=== PATIENT | male | born 1950 | race Two or more races ===

== ENCOUNTER 2020-12-16 09:40 | Outpatient (REF) | payer MEDICARE, SELFPAY ==
--- NOTE | 2020-12-16 16:54 | MHC.AU.ANR ---
Adult Audiological Evaluation Date of Visit: 12/16/20 Reason for Appointment: Audiological evaluation due to failed hearing screening. Mr. Quiñonez reports that he had a hearing screening on a occupational health physical exam and was advised that he had problems with his right ear. Mr. Quiñonez denies any concerns for his hearing. He feels he hears well and hasn't experienced any hearing difficulties. 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 History: History: Yes Branch: [employer] Years in : Less than 4 years Medical History: Medical History: Diabetes, High Blood Pressure, Mumps, Thyroid Disease Medication List: Metformin, Labetalol, Lisinopril, Glipizide, Vitamin B, Eliquis Otoscopy: Right Ear: Significant cerumen build-up removed with lighted curette Left Ear: Significant cerumen build-up removed with lighted curette and suction Tympanometry: Tympanometry performed due to: To assess integrity of the middle ear system Right Ear: Normal Middle Ear System (Type A) Left Ear: Hypercompliant Middle Ear System (Type Ad) Hearing Evaluation: Transducer(s) Used: Insert Earphones, Bone Conduction Method: Conventional Audiometry Stimuli Used: Pure Tones Right Ear: Description of Hearing: Normal hearing at 250 Hz, sloping to a mild to severe sensorineural hearing loss from 500-8000 Hz. Hearing in the right ear is 10-25 dBHL worse than the left from 500-8000 Hz. Left Ear: Description of Hearing: Normal hearing from 250-1000 Hz, sloping to a mild to severe sensorineural hearing loss from 8376-1764 Hz. Speech Recognition Threshold (SRT): Method Used: Monitored Live Voice Stimuli Used: Spondee Words Right Ear: 45 dBHL Left Ear: 30 dBHL Word Discrimination: Method: Recorded Lists Word Lists Used: NU-6 Right Ear: 60% at 85 dBHL Left Ear: 84% at 70 dBHL Recommendations: Audiological re-evaluation in one year. Trial with amplification is recommended. Medical clearance from a physician is required before fitting. Referral to Ear, Nose, and Throat is recommended due to asymmetrical sensorineural hearing loss. 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 Quiñonez was welcomed to return for a hearing aid consultation. Recommended that he check with his health insurance company to see if he has any hearing aid benefits. Also gave Mr. 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 Diagnosis: Primary Diagnosis: H90.3 Bilateral Sensorineural Hearing Loss Secondary Diagnosis: H61.23 Impacted Cerumen, Bilateral Services Performed: Services Performed: Comprehensive Audiological Evaluation (CPT 57643) Tympanometry (CPT 38775) Signature: Provider: Amina Soriano, CCC-A
== END 2020-12-16 09:41 | disposition home or self-care (01) ==
LOC: HO.SH 09:40
PROVIDERS: Visit Provider Internal Medicine
DX: H90.3 Sensorineural hearing loss, bilateral (principal); H61.23 Impacted cerumen, bilateral
CPT/HCPCS: 92557; 92567

== ENCOUNTER 2021-05-12 09:28 | Outpatient (REF) | payer OTHER, SELFPAY ==
--- NOTE | ~2021-05-12 | MR_ITS ---
MR BRAIN WITHOUT AND WITH CONTRAST CLINICAL INFORMATION: Bilateral sensorineural hearing loss. COMPARISON: None available. TECHNIQUE: Multiplanar, multisequence MRI of the brain was obtained before and after the intravenous administration of 9 mL Gadavist. FINDINGS: The inner ear structures including the cochlea, vestibules, and semicircular canals exhibit preserved CSF signal intensity with no pathologic enhancement. The vestibular aqueducts are not enlarged. Cranial nerves VII and VIII complexes are normal in morphology. No enhancing CP angle/retrocochlear lesion. There is no pathologic intracranial enhancement. There is global cerebral volume loss, there is moderate chronic microangiopathy, and there are chronic lacunar infarcts within the yumiko. No acute infarct on diffusion-weighted imaging. No intracranial hemorrhage on the gradient series. No hydrocephalus, extra-axial surface collection, or herniation. The midline intracranial structures are normal. Cerebellar tonsils are normally positioned. Craniocervical junction is normal. Osseous marrow signal intensity remains homogeneous. No significant soft tissue abnormality is appreciated. MR/MR head/brain wo/w con IMPRESSION: - No retrocochlear pathology. - There is global cerebral volume loss, there is moderate chronic microangiopathy, and there are chronic lacunar infarcts within the yumiko.
[2021-05-12 10:14] LABS: Blood Urea Nitrogen 15 mg/dL (9-16); Estimated Glomerular Filt Rate > 60
== END 2021-05-12 09:29 | disposition home or self-care (01) ==
LOC: HO.MRI 09:28
PROVIDERS: PCP Physician Assistant; Visit Provider Otolaryngology
DX: Z01.812 Encounter for preprocedural laboratory examination (principal); H90.3 Sensorineural hearing loss, bilateral
CPT/HCPCS: 36415; 70553; 82565; 84520; A9585

== ENCOUNTER 2021-06-15 09:34 | Outpatient (REF) | payer OTHER, SELFPAY ==
[2021-06-15 09:51] LABS: MANUAL DIFF FLAG NO
[2021-06-15 10:38] LABS: Basophils Percent Auto 0.2 % (0-2); Eosinophils Absolute Auto 0.1 X10*3/uL (0.0-0.4); Eosinophils Percent Auto 1.7 % (0-4); Hematocrit 37.2 % (42.0-52.0); Imm Gran Abs Auto 0.01 X10*3/uL (0.00-0.03); Imm Gran Pct Auto 0.2 % (0.0-0.4); Lymphocytes Absolute Auto 1.7 X10*3/uL (1.2-4.9); Lymphocytes Percent Auto 36.2 % (20-40); Mean Corpuscular HGB Conc 32.3 g/dl (31.0-36.0); Mean Corpuscular Hemoglobin 29.8 pg (27.0-33.0); Mean Corpuscular Volume 92.3 fL (80.0-98.0); Mean Platelet Volume 12.8 fL (9.4-12.4); Monocytes Absolute Auto 0.5 X10*3/uL (0.1-1.2); Monocytes Percent Auto 9.9 % (2-11); Neutrophils Absolute Auto 2.4 x10*3/uL (2.0-8.3); Neutrophils Percent Auto 51.8 % (45-73); Platelet Count 130 X10*3/uL (160-400); Red Blood Count 4.03 X10*6/uL (4.60-5.80); Red Cell Distribution Width 13.3 % (11.0-16.0); White Blood Count 4.7 X10*3/uL (4.8-10.8)
[2021-06-15 10:49] LABS: Estimated Average Glucose 174 mg/dL; Hemoglobin A1c % 7.7 %
[2021-06-15 11:09] LABS: Alanine Aminotransferase 26 U/L (0-40); Albumin Level 4.4 g/dL (3.5-5.0); Alkaline Phosphatase 67 U/L (39-117); Anion Gap 11 (12-20); Aspartate Amino Transferase 16 U/L (5-37); Bilirubin Total 0.6 mg/dL (0.0-1.0); Blood Urea Nitrogen 15 mg/dL (9-16); Calcium 9.8 mg/dL (8.4-10.2); Carbon Dioxide 30 mmol/L (22-29); Chloride 103 mmol/L (96-108); Cholesterol 150 mg/dL; Estimated Glomerular Filt Rate > 60; Glucose Fasting 199 mg/dL (60-99); HDL Cholesterol 41 mg/dL; LDL Cholesterol Calculated 99 mg/dl; Potassium 4.9 mmol/L (3.3-5.1); Sodium 139 mmol/L (135-145); Total Protein 7.1 g/dL (6.5-8.0); Triglycerides 53 mg/dL
[2021-06-15 11:22] LABS: TSH reflex Free T4 0.86 uIU/mL (0.32-4.0)
[2021-06-15 12:09] LABS: Folate 19.5 ng/mL (> or = 4.0); Vitamin B12 543 pg/mL (200-900)
[2021-06-20 12:52] LABS: Vitamin D 25-OH, D2 <4 ng/mL; Vitamin D 25-OH, D3 20 ng/mL; Vitamin D 25-OH, Total 20 ng/mL (30-100)
== END 2021-06-15 09:35 | disposition home or self-care (01) ==
LOC: HO.LAB 09:34
PROVIDERS: PCP Nurse Practitioner Acute Care; Visit Provider Nurse Practitioner Acute Care
DX: E78.5 Hyperlipidemia, unspecified (principal)
CPT/HCPCS: 36415; 80053; 80061; 82306; 82607; 82746; 83036; 84443; 85025

== ENCOUNTER 2021-08-28 09:29 | Emergency (ER) | payer OTHER, SELFPAY ==
[2021-08-28 09:31] VITALS: BP 152/64; PULSE 77; RESP 18; TEMP 36.8; O2SAT 97; BMI 30.9
--- NOTE | 2021-08-28 09:50 | ED_ITS ---
HPI - Eye Problem General Chief complaint: Eye Problems Stated complaint: pink eye Time Seen by Provider: 08/28/21 09:50 History of Present Illness HPI Narrative: Patient complains of 3 days of bilateral itchy scratchy red eye is with what was at 1st to clear discharge and now whitish yellow discharge symmetric in both eyes, no vision loss no photophobia no eye pain no injury to the eye no foreign body Related Data Home Medications Medication Instructions Recorded Confirmed apixaban 5 mg tablet (Eliquis) 5 mg PO BID 05/13/21 05/13/21 cyanocobalamin (vitamin B-12) 2,000 mcg PO DAILY 05/13/21 05/13/21 2,000 mcg tablet,extended release glipizide 10 mg tablet 20 mg PO BID 05/13/21 05/13/21 labetalol 200 mg tablet 200 mg PO BID 05/13/21 05/13/21 levothyroxine 200 mcg tablet 200 mcg PO DAILY 05/13/21 05/13/21 lisinopril 20 mg tablet 20 mg PO DAILY 05/13/21 05/13/21 simvastatin 20 mg tablet 20 mg PO DAILY 05/13/21 05/13/21 Previous Rx's Medication Instructions Recorded calcitriol 0.25 mcg capsule 0.25 mcg PO DAILY #30 caps 06/22/21 diclofenac sodium 1 % topical gel 4 g topical QID #100 grams 07/17/21 (Voltaren Arthritis Pain) fluticasone propionate 50 1 spray intranasal BID #48 grams 07/27/21 mcg/actuation nasal spray,suspension cetirizine 10 mg capsule 10 mg PO DAILY PRN allergy 08/28/21 symptoms #14 caps olopatadine 0.2 % eye drops 1 drp ophthalmic (eye) DAILY PRN 08/28/21 (Pataday Once Daily Relief) itching #2.5 mL sulfacetamide sodium 10 % eye 1 drp ophthalmic (eye) Q4H 5 days 08/28/21 drops (Bleph-10) #15 mL Allergies Allergy/AdvReac Type Severity Reaction Status Date / Time No Known Drug Allergies Allergy Mild Unknown Verified 06/12/21 10:44 Review of Systems Review of Systems: Positive for eye redness and discharge Negatives are no fever no chills no dizziness no headache no vision loss no eye pain no photophobia no runny nose no skin rash no difficulty breathing or swallowing Yes all other systems are reviewed and are negative [facility] Past Medical History Source: nursing notes reviewed Medical History Allergic sinusitis Essential hypertension HX: anticoagulation Hyperlipidemia Hypothyroidism Paroxysmal A-fib Type II diabetes mellitus Surgical History H/O thumb surgery Family History Family History Father No problems noted. Mother Diabetes Social History Social History Housing: Apartment Alcohol intake: former Patient Tobacco Use Status: Never used Tobacco e-Cigarette/Vaping Use: Never Used Second Hand Smoke Exposure: Yes Advance Directives: Yes Advance Directives Information Provided: Yes Advance Directives on File: No service: Yes Current occupational status: employed Cognitive needs: No Hearing needs: No Vision needs: Yes (Glasses) Physical Exam Vital Signs: Vital Signs: Last Vital Signs Temp 98.3 F 08/28/21 09:31 Pulse 77 08/28/21 09:31 Resp 18 08/28/21 09:31 BP 152/64 H 08/28/21 09:31 Pulse Ox 97 08/28/21 09:31 O2 Del Method 08/28/21 09:31 BMI result Body Mass Index 30.9 General appearance comfortable relax no acute distress The eyes bilateral conjunctivae all erythema, there is a whitish discharge scan both eyes pupils equal round reactive to light extraocular motions are intact no photophobia, visual acuity 2020 bilateral with glasses The neck is supple Respiratory no distress Extremities full range of motion x4 Skin no rash Course Course Course Narrative: Patient with conjunctivitis possibly allergic possibly bacterial is treated with sulfacetamide and allergy medication Discharge Plan Discharge Clinical Impression: Conjunctivitis Patient Disposition: Home, Self-Care Additional Instructions: The redness and discharge from her eye could be from an infection or could be from allergies so we are treating for both possibilities Use medication as prescribed Return any time for eye pain or vision change or loss If not better in 3 days follow with eye doctor or family doctor Prescriptions: New sulfacetamide sodium [Bleph-10] 10 % drops 1 drp ophthalmic (eye) Q4H 5 Days Qty: 15 0RF cetirizine 10 mg capsule 10 mg PO DAILY PRN (Reason: allergy symptoms) Qty: 14 0RF olopatadine [Pataday Once Daily Relief] 0.2 % drops 1 drp ophthalmic (eye) DAILY PRN (Reason: itching) Qty: 2.5 0RF No Action calcitriol 0.25 mcg capsule 0.25 mcg PO DAILY Qty: 30 3RF diclofenac sodium [Voltaren Arthritis Pain] 1 % gel 4 g topical QID Qty: 100 0RF Rx Instructions: apply to single knee, ankle, foot; for foot includes sole/toes/top of foot fluticasone propionate 50 mcg/actuation spray,suspension 1 spray intranasal BID Qty: 48 0RF glipizide 10 mg tablet 20 mg PO BID lisinopril 20 mg tablet 20 mg PO DAILY labetalol 200 mg tablet 200 mg PO BID cyanocobalamin (vitamin B-12) 2,000 mcg tablet extended release 2,000 mcg PO DAILY Eliquis 5 mg tablet 5 mg PO BID simvastatin 20 mg tablet 20 mg PO DAILY levothyroxine 200 mcg tablet 200 mcg PO DAILY Interventions: ED Discharge Assessment Last Done: 08/28/21 10:03 Discharge Date/Time: 08/28/21 10:03
== END 2021-08-28 10:03 | disposition home or self-care (01) ==
PROVIDERS: Emergency Provider Student in an Organized Health Care Education/Training Program
DX: H10.9 Unspecified conjunctivitis (principal); I10 Essential (primary) hypertension; E11.9 Type 2 diabetes mellitus without complications; I48.0 Paroxysmal atrial fibrillation
CPT/HCPCS: 99283

== ENCOUNTER 2021-09-15 10:31 | Emergency (ER) | payer OTHER, SELFPAY ==
--- NOTE | ~2021-09-15 | CT_ITS ---
EXAMINATION: CT HEAD WITHOUT CONTRAST CLINICAL INFORMATION: Severe headaches. Patient on Eliquis COMPARISON: MRI brain 05/12/2021 TECHNIQUE: Contiguous axial imaging was performed from the skull base to vertex without intravenous administration of contrast. This CT examination was performed using dose optimization techniques as appropriate, variously including the following: *Automated exposure control *Adjustment of mA and/or kV according to patient size (this includes techniques or standardized protocols for targeted exams where dose is matched to indication/reason for exam; i.e. extremities or head) *Use of iterative reconstruction technique DLP: 661 mGy-cm FINDINGS: There is prominence to the sulci and ventricles. There is deep white matter gliosis. Findings are compatible with involutional change. There is no intra or extra-axial fluid collection, hemorrhage, mass, or mass effect. Subtle low density areas in the yumiko were seen on the prior MRI study, likely chronic appearance. Calvarium intact. CT/CT head/brain wo con IMPRESSION: No acute intracranial pathology.
[2021-09-15 11:09] VITALS: BP 146/67; PULSE 81; RESP 16; TEMP 36.3; O2SAT 98; BMI 29.8
[2021-09-15 13:04] LABS: MANUAL DIFF FLAG NO
[2021-09-15 13:08] LABS: Basophils Percent Auto 0.1 % (0-2); Eosinophils Absolute Auto 0.1 X10*3/uL (0.0-0.4); Eosinophils Percent Auto 0.9 % (0-4); Hematocrit 39.4 % (42.0-52.0); Hemoglobin 12.9 g/dl (14.0-18.0); Imm Gran Abs Auto 0.01 X10*3/uL (0.00-0.03); Imm Gran Pct Auto 0.1 % (0.0-0.4); Lymphocytes Absolute Auto 2.2 X10*3/uL (1.2-4.9); Lymphocytes Percent Auto 31.9 % (20-40); Mean Corpuscular HGB Conc 32.7 g/dl (31.0-36.0); Mean Corpuscular Volume 91.6 fL (80.0-98.0); Monocytes Absolute Auto 0.5 X10*3/uL (0.1-1.2); Monocytes Percent Auto 6.5 % (2-11); Neutrophils Absolute Auto 4.2 x10*3/uL (2.0-8.3); Neutrophils Percent Auto 60.5 % (45-73); Platelet Count 184 X10*3/uL (160-400); White Blood Count 6.9 X10*3/uL (4.8-10.8)
[2021-09-15 13:13] LABS: INTERNATIONAL NORM RATIO 1.3 (0.9-1.1); Prothrombin Time 15.4 SEC (10.0-13.1)
[2021-09-15 13:21] LABS: COVID-19 Test Negative (Negative)
[2021-09-15 13:41] LABS: Anion Gap 13 (12-20); Blood Urea Nitrogen 17 mg/dL (9-16); Calcium 9.8 mg/dL (8.4-10.2); Carbon Dioxide 28 mmol/L (22-29); Chloride 102 mmol/L (96-108); Creatinine Clr Calc Pharmacy 73.7; Estimated Glomerular Filt Rate > 60; Glucose Random 256 mg/dL (60-115); Potassium 5.1 mmol/L (3.3-5.1); Sodium 138 mmol/L (135-145)
[2021-09-15 13:57] LABS: Erythrocyte Sedimentation Rate 12 MM/HR (0-15)
--- NOTE | 2021-09-15 15:44 | ED_ITS ---
HPI - Headache General Chief Complaint: Headache Stated Complaint: severe headache, not sleeping or eating Time Seen by Provider: 09/15/21 11:12 Source: patient Mode of arrival: ambulatory Limitations: no limitations History of Present Illness HPI Narrative: 70-year-old male here with reports of intermittent stabbing headache on the right side for the last 2 weeks. Patient tells me that 2 weeks ago he was diagnosed with shingles. He completed a course of Valtrex. Since then he said intermittent headaches that are unrelieved with Tylenol home. Patient tells me he saw his primary care doctor on September 11 and was prescribed gabapentin 200 mg twice daily. Patient tells me he is having continued headaches. He denies any hearing changes or ear pain. No weakness, speech changes on the side of headache. Pain is mainly on the right side. He tells me that the shingles lesions that are scabbed over are still quite tender. No fevers, chills, neck pain or neck stiffness. No vision changes. Has followed up with his principal security architect with normal eye exam (09/09/21) Related Data Home Medications Medication Instructions Recorded Confirmed apixaban 5 mg tablet (Eliquis) 5 mg PO BID 05/13/21 09/11/21 cyanocobalamin (vitamin B-12) 2,000 mcg PO DAILY 05/13/21 09/11/21 2,000 mcg tablet,extended release glipizide 10 mg tablet 20 mg PO BID 05/13/21 09/11/21 labetalol 200 mg tablet 200 mg PO BID 05/13/21 09/11/21 levothyroxine 200 mcg tablet 200 mcg PO DAILY 05/13/21 09/11/21 lisinopril 20 mg tablet 20 mg PO DAILY 05/13/21 09/11/21 simvastatin 20 mg tablet 20 mg PO DAILY 05/13/21 09/11/21 Previous Rx's Medication Instructions Recorded calcitriol 0.25 mcg capsule 0.25 mcg PO DAILY #30 caps 06/22/21 diclofenac sodium 1 % topical gel 4 g topical QID #100 grams 07/17/21 (Voltaren Arthritis Pain) fluticasone propionate 50 1 spray intranasal BID #48 grams 07/27/21 mcg/actuation nasal spray,suspension cetirizine 10 mg capsule 10 mg PO DAILY PRN allergy 08/28/21 symptoms #14 caps olopatadine 0.2 % eye drops 1 drp ophthalmic (eye) DAILY PRN 08/28/21 (Pataday Once Daily Relief) itching #2.5 mL cephalexin 500 mg tablet 500 mg PO Q12H 7 days #14 tabs 09/04/21 valacyclovir 1 gram tablet 1,000 mg PO Q8H 7 days #21 tabs 09/04/21 gabapentin 100 mg capsule 200 mg PO BID 14 days #56 caps 09/11/21 gabapentin 300 mg capsule 300 mg PO TID #84 caps 09/15/21 Allergies Allergy/AdvReac Type Severity Reaction Status Date / Time No Known Drug Allergies Allergy Mild Unknown Verified 09/15/21 11:12 Review of Systems Review of Systems: Yes all other systems are reviewed and are negative Constitutional: Constitutional: Reports no additional constitutional complaints, Denies body ache(s), Denies chills, Denies fever(s), Reports headache(s) and Denies weakness Eyes: Eyes: Reports no additional eye complaints and Denies change in vision ENT: Reports system reviewed and no additional complaints, except as documented, Denies dizziness, Reports headache(s), Denies nasal congestion, Denies nasal discharge and Denies neck pain Cardiovascular: Cardiovascular: Reports no additional cardiovascular complaints, Denies chest pain, Denies leg edema and Denies dyspnea Respiratory: Respiratory: Reports no additional respiratory complaints, Denies cough and Denies dyspnea Gastrointestinal: Gastrointestinal: Reports no additional gastrointestinal complaints, Denies abdominal pain, Denies diarrhea, Denies nausea and Denies vomiting Genitourinary: Genitourinary: Denies urinary incontinence Musculoskeletal: Musculoskeletal: Reports no additional musculoskeletal complaints, Denies back pain, Denies arthralgias, Denies joint swelling, Denies neck pain, Denies numbness and Denies tingling Integumentary/Breasts: Skin/Breast: Reports system reviewed and no additional complaints, except as docu and Denies rash Neurologic: Reports system reviewed and no additional complaints, except as documented, Denies Abnormal speech present, Denies dizziness, Reports headache(s), Denies numbness, Denies tingling and Denies weakness PMFSH Past Medical History Attestation statement: The following information was validated with the patient. Source: old records reviewed and nursing notes reviewed Medical History Allergic sinusitis Essential hypertension HX: anticoagulation Hyperlipidemia Hypothyroidism Paroxysmal A-fib Type II diabetes mellitus Surgical History H/O thumb surgery Family History Family History Father No problems noted. Mother Diabetes Social History Social History Housing: Apartment Alcohol intake: former Patient Tobacco Use Status: Never used Tobacco e-Cigarette/Vaping Use: Never Used Second Hand Smoke Exposure: Yes Advance Directives: Yes Advance Directives Information Provided: No Advance Directives on File: No service: Yes Current occupational status: employed Cognitive needs: No Hearing needs: No Vision needs: Yes (Glasses) Physical Exam Vital Signs: Vital Signs: Last Vital Signs Temp 97.3 F 09/15/21 11:09 Pulse 81 09/15/21 11:09 Resp 16 09/15/21 11:09 BP 146/67 H 09/15/21 11:09 Pulse Ox 98 09/15/21 11:09 O2 Del Method 09/15/21 11:09 BMI result Body Mass Index 29.8 Const: General: cooperative, healthy appearing, comfortable and no acute distress Orientation/consciousness: patient oriented x3 Limitations: no limitations HEENT: Head: Yes normal to inspection and No Temporal artery tenderness present Head images: 1. Crusted lesions Ears: hearing grossly normal bilaterally General nose exam: Normal external nose present Face and sinus: Yes normal facial exam Mouth: Normal oral and palatal mucosa present Throat: Yes posterior oropharynx normal Eyes: General: appearance normal, both eyes and all related structures Pupils: Equal, round and reactive pupils present Neck: Neck: Yes normal visual inspection Chest: Chest palpation & inspection: normal inspection of the chest Resp: Effort & Inspection: normal respiratory effort Auscultation: clear to auscultation bilaterally Cardio: Rate: regular rate Rhythm: regular rhythm Peripheral pulses: Peripheral pulses 2+ throughout GI: Inspection: Yes normal to inspection Palpation (GI): Soft to palpation and nontender Auscultation: normal bowel sounds Back/Spine/Pelvis: Thoracic/Lumbar Spine: thoracic and lumbar spine normal to inspection Skin: General skin exam: no rashes or lesions noted Neuro: General: patient oriented x3, moves all extremities, no focal motor deficits and normal sensation to monofilament Cranial nerves: Yes CN's II-XII intact bilaterally, Yes Equal, round and reactive pupils present, Yes Bilaterally intact EOM present, Yes Nystagmus not present, Yes Normal facial strength present and Yes Midline tongue present Cognition (Neuro): normal cognition Speech: No Abnormal speech present Gait exam (Neuro): Normal gait present Motor exam (neuro): 5/5 motor strength present throughout Sensory Exam: Normal double simultaneous stimulation for sensation Extrem: General: Yes normal to inspection Course Course Course Narrative: Labs are unremarkable. CT head shows no acute finding. COVID screen is negative. Likely herpetic neuralgia. Patient on low dose of gabapentin. We discussed increasing the dosage and frequency of the medication versus changing him to a different medication. Patient would like to consider increasing the gabapentin and frequency and dosage. Will increase to 300 mg 3 times daily. Recommend follow-up with primary care doctor this week. Reviewed worrisome signs and symptoms of when to return to the emergency department. Comfortable discharge home. MDM - Headache MDM Narrative Medical decision making narrative: 70-year-old male who had shingles 2 weeks ago here with intermittent sharp stabb ing pain on the right side of the head at the former site of the lesions with no associated vision changes, fevers, weakness, sensation change, neck pain or neck stiffness. Patient started on gabapentin by primary care doctor on September 11 at 200 mg twice daily. Reporting continued pain. Normal neurological exam with no overt deficit. Patient overall well appearing. Patient had labs, COVID screen, CT head ordered from triage. Will review -low concern for hunter cadet with normal neurological exam, no hearing change or ear pain. -low concern for temporal arteritis with no temporal artery tenderness Medical Records Attestation: I reviewed the patient's medical records. Lab Data Attestation: I reviewed the patient's lab results. Result diagrams: 09/15/21 12:55 09/15/21 12:55 Labs: Lab Results 09/15/21 09/15/21 09/15/21 Range/Units 12:55 12:55 12:55 WBC 6.9 (4.8-10.8) X10*3/uL RBC 4.30 L (4.60-5.80) X10*6/uL Hgb 12.9 L (14.0-18.0) g/dl Hct 39.4 L (42.0-52.0) % MCV 91.6 (80.0-98.0) fL MCH 30.0 (27.0-33.0) pg MCHC 32.7 (31.0-36.0) g/dl RDW 13.0 (11.0-16.0) % Plt Count 184 D (160-400) X10*3/uL MPV 11.0 (9.4-12.4) fL Immature Gran % (Auto) 0.1 (0.0-0.4) % Neut % (Auto) 60.5 (45-73) % Lymph % (Auto) 31.9 (20-40) % [place] % (Auto) 6.5 (2-11) % Eos % (Auto) 0.9 (0-4) % Baso % (Auto) 0.1 (0-2) % Lymph # (Auto) 2.2 (1.2-4.9) X10*3/uL [place] # (Auto) 0.5 (0.1-1.2) X10*3/uL Eos # (Auto) 0.1 (0.0-0.4) X10*3/uL Baso # (Auto) 0.0 (0.0-0.2) X10*3/uL Abs Immat Gran (auto) 0.01 (0.00-0.03) X10*3/uL Absolute Neuts (auto) 4.2 (2.0-8.3) x10*3/uL Absolute Nucleated RBC 0.000 (0.0-0.012) X10*3/uL Nucleated RBC % (auto) 0.0 (0.0-0.2) /100WBC ESR 12 (0-15) MM/HR PT 15.4 H (10.0-13.1) SEC INR 1.3 H (0.9-1.1) Sodium (135-145) mmol/L Potassium (3.3-5.1) mmol/L Chloride (96-108) mmol/L Carbon Dioxide (22-29) mmol/L Anion Gap (12-20) BUN (9-16) mg/dL Creatinine (0.5-1.4) mg/dL Estim Creat Clear Calc Estimated GFR Random Glucose (60-115) mg/dL Calcium (8.4-10.2) mg/dL COVID-19 (ADITI) (Negative) COVID-19 Clin Com 09/15/21 09/15/21 Range/Units 12:55 12:55 WBC (4.8-10.8) X10*3/uL RBC (4.60-5.80) X10*6/uL Hgb (14.0-18.0) g/dl Hct (42.0-52.0) % MCV (80.0-98.0) fL MCH (27.0-33.0) pg MCHC (31.0-36.0) g/dl RDW (11.0-16.0) % Plt Count (160-400) X10*3/uL MPV (9.4-12.4) fL Immature Gran % (Auto) (0.0-0.4) % Neut % (Auto) (45-73) % Lymph % (Auto) (20-40) % [place] % (Auto) (2-11) % Eos % (Auto) (0-4) % Baso % (Auto) (0-2) % Lymph # (Auto) (1.2-4.9) X10*3/uL [place] # (Auto) (0.1-1.2) X10*3/uL Eos # (Auto) (0.0-0.4) X10*3/uL Baso # (Auto) (0.0-0.2) X10*3/uL Abs Immat Gran (auto) (0.00-0.03) X10*3/uL Absolute Neuts (auto) (2.0-8.3) x10*3/uL Absolute Nucleated RBC (0.0-0.012) X10*3/uL Nucleated RBC % (auto) (0.0-0.2) /100WBC ESR (0-15) MM/HR PT (10.0-13.1) SEC INR (0.9-1.1) Sodium 138 (135-145) mmol/L Potassium 5.1 (3.3-5.1) mmol/L Chloride 102 (96-108) mmol/L Carbon Dioxide 28 (22-29) mmol/L Anion Gap 13 (12-20) BUN 17 H (9-16) mg/dL Creatinine 0.92 (0.5-1.4) mg/dL Estim Creat Clear Calc 73.7 Estimated GFR > 60 Random Glucose 256 H (60-115) mg/dL Calcium 9.8 (8.4-10.2) mg/dL COVID-19 (ADITI) Negative (Negative) COVID-19 Clin Com See Note Imaging Data CT scan - head: Attestation: I personally reviewed and interpreted this imaging study as follows: Radiologist's impression: EXAMINATION: CT HEAD WITHOUT CONTRAST CLINICAL INFORMATION: Severe headaches. Patient on Eliquis? COMPARISON: MRI brain 05/12/2021 TECHNIQUE: Contiguous axial imaging was performed from the skull base to vertex without intravenous administration of contrast. This CT examination was performed using dose optimization techniques as appropriate, variously including the following: *Automated exposure control *Adjustment of mA and/or kV according to patient size (this includes techniques or standardized protocols for targeted exams where dose is matched to indication/reason for exam; i.e. extremities or head) *Use of iterative reconstruction technique DLP: 661 mGy-cm FINDINGS: There is prominence to the sulci and ventricles. There is deep white matter gliosis. Findings are compatible with involutional change. There is no intra or extra-axial fluid collection, hemorrhage, mass, or mass effect. Subtle low density areas in the yumiko were seen on the prior MRI study, likely chronic appearance. Calvarium intact. CT/CT head/brain wo con IMPRESSION: No acute intracranial pathology. ? Discharge Plan Discharge Clinical Impression: Post herpetic neuralgia Patient Disposition: Home, Self-Care Instructions: Erick (ED) Additional Instructions: Take the gabapentin with breakfast, lunch and dinner Discussed with your primary care doctor how you are feeling in a couple of days Prescriptions: New gabapentin 300 mg capsule 300 mg PO TID Qty: 84 0RF No Action calcitriol 0.25 mcg capsule 0.25 mcg PO DAILY Qty: 30 3RF diclofenac sodium [Voltaren Arthritis Pain] 1 % gel 4 g topical QID Qty: 100 0RF Rx Instructions: apply to single knee, ankle, foot; for foot includes sole/toes/top of foot fluticasone propionate 50 mcg/actuation spray,suspension 1 spray intranasal BID Qty: 48 0RF cetirizine 10 mg capsule 10 mg PO DAILY PRN (Reason: allergy symptoms) Qty: 14 0RF olopatadine [Pataday Once Daily Relief] 0.2 % drops 1 drp ophthalmic (eye) DAILY PRN (Reason: itching) Qty: 2.5 0RF glipizide 10 mg tablet 20 mg PO BID lisinopril 20 mg tablet 20 mg PO DAILY labetalol 200 mg tablet 200 mg PO BID cyanocobalamin (vitamin B-12) 2,000 mcg tablet extended release 2,000 mcg PO DAILY Eliquis 5 mg tablet 5 mg PO BID simvastatin 20 mg tablet 20 mg PO DAILY levothyroxine 200 mcg tablet 200 mcg PO DAILY valacyclovir 1 gram tablet 1,000 mg PO Q8H 7 Days Qty: 21 0RF cephalexin 500 mg tablet 500 mg PO Q12H 7 Days Qty: 14 0RF gabapentin 100 mg capsule 200 mg PO BID 14 Days Qty: 56 0RF Referrals: Tamera Prado FNP [Primary Care Provider] - 3 days Interventions: ED Discharge Assessment Last Done: 09/15/21 15:56 Discharge Date/Time: 09/15/21 15:57
== END 2021-09-15 15:57 | disposition home or self-care (01) ==
PROVIDERS: Emergency Medicine; Emergency Provider Emergency Medicine; PCP Nurse Practitioner Family
DX: M79.2 Neuralgia and neuritis, unspecified (principal); R51.9 Headache, unspecified; Z20.822 Contact with and (suspected) exposure to COVID-19; Z79.899 Other long term (current) drug therapy
CPT/HCPCS: 70450; 80048; 85025; 85610; 85652; 87635; 99283

== ENCOUNTER 2022-07-22 09:52 | Outpatient (REF) | payer MEDICARE, SELFPAY ==
[2022-07-22 10:34] LABS: Hematocrit 40.1 % (42.0-52.0); Hemoglobin 12.7 g/dl (14.0-18.0); Mean Corpuscular HGB Conc 31.7 g/dl (31.0-36.0); Mean Corpuscular Hemoglobin 29.8 pg (27.0-33.0); Mean Corpuscular Volume 94.1 fL (80.0-98.0); Mean Platelet Volume 12.1 fL (9.4-12.4); Platelet Count 162 X10*3/uL (160-400); Red Blood Count 4.26 X10*6/uL (4.60-5.80); Red Cell Distribution Width 12.9 % (11.0-16.0); White Blood Count 5.6 X10*3/uL (4.8-10.8)
[2022-07-22 10:43] LABS: Estimated Average Glucose 157 mg/dL; Hemoglobin A1c % 7.1 %
[2022-07-22 11:25] LABS: Alanine Aminotransferase 20 U/L (0-40); Albumin Level 4.3 g/dL (3.5-5.0); Alkaline Phosphatase 68 U/L (39-117); Anion Gap 14 (12-20); Aspartate Amino Transferase 16 U/L (5-37); Bilirubin Total 0.5 mg/dL (0.0-1.0); Blood Urea Nitrogen 25 mg/dL (9-16); Calcium 9.7 mg/dL (8.4-10.2); Carbon Dioxide 27 mmol/L (22-29); Chloride 105 mmol/L (96-108); Cholesterol 140 mg/dL; Estimated Glomerular Filt Rate > 60; Glucose Random 211 mg/dL (60-115); HDL Cholesterol 39 mg/dL; LDL Cholesterol Calculated 80 mg/dl; Potassium 5.1 mmol/L (3.3-5.1); Sodium 141 mmol/L (135-145); Total Protein 6.7 g/dL (6.5-8.0); Triglycerides 107 mg/dL
[2022-07-22 11:28] LABS: Creatinine Urine 68.78 mg/dL; Microalbum/Creatinine Ratio Ur 8.7 ug/mg cr
[2022-07-22 12:00] LABS: Folate 16.1 ng/mL (> or = 4.0); TSH reflex Free T4 0.96 uIU/mL (0.32-4.0); Vitamin B12 653 pg/mL (200-900); Vitamin D 25-OH Total 41.3 ng/mL (>30)
== END 2022-07-22 09:53 | disposition home or self-care (01) ==
LOC: HO.LAB 09:52
PROVIDERS: Visit Provider Nurse Practitioner Family
DX: E03.9 Hypothyroidism, unspecified (principal); E55.9 Vitamin D deficiency, unspecified; E78.5 Hyperlipidemia, unspecified; E11.9 Type 2 diabetes mellitus without complications
CPT/HCPCS: 36415; 80053; 80061; 82043; 82306; 82607; 82746; 83036; 84443; 85027

== ENCOUNTER 2022-10-20 14:53 | Outpatient (AMB) | payer MEDICARE, SELFPAY ==
--- NOTE | 2022-10-20 15:00 | A.OFFPC_ITS ---
Vital Signs 10/20/22 15:03 Height 5 ft 6 in Weight 187 lb BMI 30.2 BP 150/68 H Blood Pressure Location Lt brachial Position Sitting Pulse 84 Pulse Source Pulse Oximeter Temp Source Skin Pulse Oximetry (%) 98 Oxygen Delivery Method Room Air Intake Visit Reasons: Trouble hearing-L ear Intake Note: pt states bilateral ear blockage since yesterday Spring Intern Required: No Allergies No Known Drug Allergies Allergy (Mild, Verified 10/20/22 15:19) Unknown Medication List - Last Reconciled 10/20/22 by MAGGI Bailey apixaban (Eliquis) 5 mg PO BID calcitriol 0.25 mcg PO DAILY cetirizine 10 mg PO DAILY PRN cyanocobalamin (vitamin B-12) ER 2,000 mcg PO DAILY diclofenac sodium 1% (Voltaren Arthritis Pain) 4 grams topical QID empagliflozin (Jardiance) 10 mg PO DAILY fluticasone propionate 50 mcg/actuation 1 spray intranasal DAILY glipizide 20 mg PO BID labetalol 200 mg PO BID levothyroxine 200 mcg PO DAILY lisinopril 20 mg PO DAILY olopatadine 0.2% (Pataday Once Daily Relief) 1 drp ophthalmic (eye) DAILY PRN simvastatin 20 mg PO DAILY Tobacco use date assessed: 10/20/22 Fall risk assessment: No Falls in past year Last assessed Fall Risk: 10/20/22 HPI Trouble hearing-L ear HPI Details Patient is a 71-year-old male who presents today for an office visit due to bilateral ear blocked sensation left greater than right for the past 1 day. Patient reports that 2 days ago he tried to flush his ears, mild vax came from his right ear. He denies ear pain, denies being submitted sick. No fever or chills. No headache. Reports wearing bilateral hearing aids when driving. [facility] Medical History Allergic sinusitis Encounter to establish care Essential hypertension Herpes zoster HX: anticoagulation Hyperlipidemia Hypothyroidism Paroxysmal A-fib Type II diabetes mellitus Surgical History H/O thumb surgery History of colonoscopy Family History Father No problems noted. Mother Diabetes Social History Housing: Apartment Alcohol intake: former Patient Tobacco Use Status: Never used Tobacco e-Cigarette/Vaping Use: Never Used Second Hand Smoke Exposure: Yes service: Yes Current occupational status: employed Cognitive needs: No Hearing needs: No Vision needs: Yes (Glasses) Questionnaire Thrive Questionnaire Date Thrive assessed: 04/02/22 AUDIT C Alcohol Use Questionnaire (AUDIT-C) 1. How often do you have a drink containing alcohol?: Never 2. How many drinks containing alcohol do you have on a typical day when you are drinking?: 1 or 2 (0) 3. How often do you have six or more drinks on one occasion?: Never Total Score: 0 Score Reviewed/Action Taken: No MICHELE-7 AMB Questionnaire MICHELE-7 Date MICHELE - 7 assessed: 04/02/22 Source: Developed by Drs. Trae Simeon, Saida Campoverde, Chiki Hummel and colleagues, with an educational yeyo from [employer]. Review of Systems Const Denies body aches, Denies chills, Denies fever(s) and Denies headache(s) Eyes Denies change in vision ENT Reports as per HPI, Denies dizziness, Denies ear discharge, Denies otalgia, Denies headache(s), Denies nasal discharge, Denies sinus pain and Denies sore throat Card Denies chest pain, Denies edema, Denies lightheadedness and Denies dyspnea Resp Denies cough, Denies dyspnea and Denies wheezing GI Denies abdominal pain Denies dysuria Musc Denies myalgias Skin/Breast Denies rash Neuro Denies dizziness and Denies headache(s) Aller/Immun Denies wheezing Physical exam (Primary Care) Vital Signs: Last Vital Signs Pulse 84 10/20/22 15:03 BP 150/68 H 10/20/22 15:03 Pulse Ox 98 10/20/22 15:03 Oxygen Delivery Method Room Air 10/20/22 15:03 BMI result Body Mass Index 30.2 Tobacco/Smoking Status: Tobacco use Status Tobacco use date assessed 10/20/22 10/20/22 15:06 Patient Tobacco Use Status Never used Tobacco 10/20/22 15:01 e-Cigarette/Vaping Use Never Used 08/09/23 15:01 Thrive Assessment: Date of Thrive Assessment Date Thrive assessed 04/02/22 10/20/22 15:01 Const Other: Right ear canal no cerumen, TM with moderate erythema, mild fluid behind right TM Left TM obstructed by cerumen, status post ear lavage left TM with moderate erythema, mild fluid behind left TM General: cooperative and no acute distress Orientation/consciousness: patient oriented x3 HENMT Head: Yes normocephalic and Yes atraumatic Face and sinus: Yes sinuses nontender Mouth: oropharynx normal and moist mucous membranes Throat: Yes posterior oropharynx normal Eyes General: appearance normal, both eyes and all related structures Neck Neck: Yes normal visual inspection and Yes full ROM Resp Effort & Inspection: normal respiratory effort and able to speak in complete sentences Auscultation: clear to auscultation bilaterally, no crackles, no rales, no rhonchi and no wheezes Cardio Rate: regular rate Rhythm: regular rhythm Heart sounds: S1 normal heart sound present and S2 normal heart sound present GI Auscultation: normal bowel sounds Skin General skin exam: no rashes or lesions noted Neuro General: patient oriented x3 Gait exam (Neuro): Normal gait present Extrem General: Yes full ROM Office Procedures Cerumen Removal From which ear canal was the cerumen removed: left Removal: irrigation Notes: patient tolerated procedure well, no complications and ear canal clear [id number] Irrigation/Lavage Assessment and Plan Assessment & Plan (1) Impacted cerumen, left ear: Code(s): H61.22 - Impacted cerumen, left ear Plan: Status post ear lavage left ear canal clear, patient tolerated well Patient reports that blocked sensation in his left ear is better (2) Otitis media: Code(s): H66.90 - Otitis media, unspecified, unspecified ear Plan: Suspect otitis media bilateral ears, will treat with Augmentin b.i.d. for 5 days. Patient agreed with the plan. Keep appointment with PCP as scheduled or follow-up sooner as needed. Medications: New amoxicillin-pot clavulanate 875-125 mg 1 tab PO Q12H 5 days 10 tabs 0RF H66.90 - Otitis media, unspecified, unspecified ear Coding Level of Care Code Est Pt Level 3 (84750) Diagnoses Impacted cerumen, left ear H61.22 Otitis media H66.90 CPT Codes Office Procedure - CPT: 85626-Ynl Irrigation/Lavage ([id number])
[2022-10-20 15:03] VITALS: BP 150/68; PULSE 84; O2SAT 98; BMI 30.2
== END 2022-10-20 15:37 | disposition home or self-care (01) ==
PROVIDERS: PCP Nurse Practitioner Family; Visit Provider Nurse Practitioner Family
DX: H61.22 Impacted cerumen, left ear (principal); H66.93 Otitis media, unspecified, bilateral
CPT/HCPCS: 69209; 99213

== ENCOUNTER 2022-11-04 14:26 | Outpatient (AMB) | payer MEDICARE, SELFPAY ==
--- NOTE | 2022-11-04 14:37 | A.OFFPC_ITS ---
Vital Signs 11/04/22 14:57 Height 5 ft 6 in Weight 188 lb BMI 30.3 BP 116/58 L Blood Pressure Location Lt brachial Position Sitting Pulse 75 Pulse Source Pulse Oximeter Pulse Oximetry (%) 96 Oxygen Delivery Method Room Air Intake Visit Reasons: Physical exam Intake Note: Patient here for a physical exam Healthcare Project Manager Required: No Accompanied by: Self / Same As Patient Allergies No Known Drug Allergies Allergy (Mild, Verified 11/04/22 15:29) Unknown Medication List - Last Reconciled 11/04/22 by MAGGI Bailey apixaban (Eliquis) 5 mg PO BID cetirizine 10 mg PO DAILY PRN cyanocobalamin (vitamin B-12) ER 2,000 mcg PO DAILY empagliflozin (Jardiance) 10 mg PO DAILY fluticasone propionate 50 mcg/actuation 1 spray intranasal DAILY glipizide 20 mg PO BID labetalol 200 mg PO BID levothyroxine 200 mcg PO DAILY lisinopril 20 mg PO DAILY simvastatin 20 mg PO DAILY Tobacco use date assessed: 10/20/22 Fall risk assessment: No Falls in past year Last assessed Fall Risk: 11/04/22 Dental Screening Dental Screen Date: 11/04/22 Did you have a dental visit in the last 12 months?: No Did you have a dental problem in the last 6 months where you did not have access to dental care?: No Was dental information given to patient?: Patient declined HPI Physical exam HPI Details Patient is a 71-year-old male presents today for physical exam.? Medical history significant for obesity, hyperlipidemia, hypothyroidism, AFib, diabetes type 2, and hypertension.? He is compliant with medications.? Patient is followed by [facility] endocrinology for diabetes management.? He is also followed by Cardiology due to AFib.? Patient denies shortness of breath or chest pain.? Up-to-date with immunizations. Today we discussed patient's need for prostate cancer screening. Up-to-date with colonoscopy. Diabetic eye exam is scheduled for 12/2022. Denies concerns at this visit. Reports blood sugar this morning 156. ? [facility] Medical History Allergic sinusitis Encounter to establish care Essential hypertension Herpes zoster HX: anticoagulation Hyperlipidemia Hypothyroidism Impacted cerumen, left ear Otitis media Paroxysmal A-fib Type II diabetes mellitus Surgical History H/O thumb surgery History of colonoscopy Family History Father No problems noted. Mother Diabetes Social History Housing: Apartment Alcohol intake: former Patient Tobacco Use Status: Never used Tobacco e-Cigarette/Vaping Use: Never Used Second Hand Smoke Exposure: Yes service: Yes Current occupational status: employed Current occupational exposures/hazards: No Cognitive needs: No Hearing needs: No Vision needs: Yes (Glasses) Questionnaire Thrive Questionnaire Date Thrive assessed: 04/02/22 MICHELE-7 AMB Questionnaire MICHELE-7 Date MICHELE - 7 assessed: 04/02/22 Source: Developed by Drs. Trae Simeon, Saida Campoverde, Chiki Hummel and colleagues, with an educational yeyo from [employer]. Review of Systems Const Denies body aches, Denies chills, Denies fever(s) and Denies headache(s) Eyes Denies change in vision ENT Denies dizziness, Denies otalgia, Denies headache(s), Denies nasal discharge, Denies sinus pain and Denies sore throat Card Denies chest pain, Denies edema, Denies lightheadedness and Denies dyspnea Resp Denies chest congestion, Denies cough and Denies dyspnea GI Denies abdominal pain, Denies constipation, Denies diarrhea, Denies nausea and Denies vomiting Denies difficulty urinating and Denies dysuria Musc Details: Reports intermittent pins and needles in great toes Denies myalgias Skin/Breast Denies lesions and Denies rash Neuro Denies dizziness and Denies headache(s) Physical exam (Primary Care) Vital Signs: Last Vital Signs Pulse 75 11/04/22 14:57 BP 116/58 L 11/04/22 14:57 Pulse Ox 96 11/04/22 14:57 Oxygen Delivery Method Room Air 11/04/22 14:57 BMI result Body Mass Index 30.3 Tobacco/Smoking Status: Tobacco use Status Tobacco use date assessed 10/20/22 11/04/22 14:38 Patient Tobacco Use Status Never used Tobacco 11/04/22 14:38 e-Cigarette/Vaping Use Never Used 11/04/22 14:38 Thrive Assessment: Date of Thrive Assessment Date Thrive assessed 04/02/22 11/04/22 14:38 Const General: cooperative and no acute distress Orientation/consciousness: patient oriented x3 HENMT Head: Yes normocephalic and Yes atraumatic Ears: TM's normal bilaterally Face and sinus: Yes sinuses nontender Mouth: oropharynx normal and moist mucous membranes Throat: Yes posterior oropharynx normal Eyes General: appearance normal, both eyes and all related structures Pupils: Equal, round and reactive pupils present EOM: EOMs intact bilaterally Neck Neck: Yes normal visual inspection, Yes full ROM and Yes no lymphadenopathy Thyroid: Thyroid normal Resp Effort & Inspection: normal respiratory effort and able to speak in complete sentences Auscultation: clear to auscultation bilaterally, no crackles, no rales, no rhonchi and no wheezes Cardio Rate: regular rate Rhythm: regular rhythm Heart sounds: S1 normal heart sound present, S2 normal heart sound present and no murmurs GI Palpation (GI): Soft to palpation, not firm, nontender, no guarding, not rigid and no hepatosplenomegaly Auscultation: normal bowel sounds General: No CVA tenderness Back/Spine/Pelvis Back: No CVA tenderness Skin General skin exam: no rashes or lesions noted Neuro General: patient oriented x3 Cranial nerves: Yes Equal, round and reactive pupils present Gait exam (Neuro): Normal gait present Extrem General: Yes full ROM and No edema Results AMB Hemoglobin A1c AMB Hemoglobin A1c 7.1 % Last Edit by BENEDICT Sandy on 11/04/22 15:0 9 Results Reviewed Results Reviewed: Laboratory Last Values Hgb A1c (Clinic) 7.1 % (4.0-6.0) H 11/04/22 14:59 Assessment and Plan Assessment & Plan (1) Obesity (BMI 30.0-34.9): Code(s): E66.9 - Obesity, unspecified Plan: Healthy food choices and exercise as tolerated (2) Hyperlipidemia: Code(s): E78.5 - Hyperlipidemia, unspecified Plan: Simvastatin 20 mg daily Low-cholesterol diet (3) Hypothyroidism: Code(s): E03.9 - Hypothyroidism, unspecified Plan: Levothyroxine 200 mcg daily (4) Paroxysmal A-fib: Code(s): I48.0 - Paroxysmal atrial fibrillation Plan: Continue to follow-up with cardiology at cardiology ([facility]) Eliquis 5 mg b.i.d. Labetalol 200 mg b.i.d. (5) Type II diabetes mellitus: Code(s): E11.9 - Type 2 diabetes mellitus without complications Plan: A1c 7.1 today Glipizide 20 mg b.i.d. Jardiance 10 mg daily Low-carbohydrate diet Diabetic eye exam scheduled for 12/2022 Continue to follow-up with [facility] endocrinology for diabetes management (6) Essential hypertension: Code(s): I10 - Essential (primary) hypertension Plan: Goal BP equal or less than 140/90 Lisinopril 20 mg daily Labetalol 200 mg b.i.d. Low-sodium diet and weight loss (7) Screening for prostate cancer: Code(s): Z12.5 - Encounter for screening for malignant neoplasm of prostate (8) Annual physical exam: Code(s): Z00.00 - Encounter for general adult medical examination without abnormal findings Plan: Repeat in 1 year Orders: Orders Comprehensive [place]. Panel Fast Today E11.9 - Type 2 diabetes mellitus without complications Hemoglobin A1c 4 Months E11.9 - Type 2 diabetes mellitus without complications Lipid Panel Today E78.5 - Hyperlipidemia, unspecified Prostate Specific Antigen Today Z12.5 - Encounter for screening for malignant neoplasm of prostate TSH reflex Free T4 Today E03.9 - Hypothyroidism, unspecified Complete Blood Count Auto Diff Today E11.9 - Type 2 diabetes mellitus without complications AMB Hemoglobin A1c Today E11.9 - Type 2 diabetes mellitus without complications Coding Level of Care Code Est Pt Prev Care >65y(36946) Diagnoses Obesity (BMI 30.0-34.9) E66.9 Hyperlipidemia E78.5 Hypothyroidism E03.9 Paroxysmal A-fib I48.0 Type II diabetes mellitus E11.9 Essential hypertension I10 Screening for prostate cancer Z12.5 Annual physical exam Z00.00
[2022-11-04 14:57] VITALS: BP 116/58; PULSE 75; O2SAT 96; BMI 30.3
== END 2022-11-04 15:40 | disposition home or self-care (01) ==
PROVIDERS: PCP Nurse Practitioner Family; Visit Provider Nurse Practitioner Family
DX: Z00.00 Encounter for general adult medical examination without abnormal findings (principal); E66.9 Obesity, unspecified; Z68.30 Body mass index [BMI] 30.0-30.9, adult; E11.9 Type 2 diabetes mellitus without complications; E78.5 Hyperlipidemia, unspecified
CPT/HCPCS: 83036; 99397

== ENCOUNTER 2023-03-10 13:16 | Outpatient (AMB) | payer MEDICARE, SELFPAY ==
--- NOTE | 2023-03-10 13:12 | A.OFFPC_ITS ---
Intake Visit Reasons: sick for 2 weeks Intake Note: Patient is here today for possible flu or cold. Symptoms stuffy noise, running noise, coughing, stuffy ears, no fever, chill or body aches. Tested neg for covid Cigarette Examiner Required: No Dental Tech: Not Required per policy Accompanied by: Self / Same As Patient Allergies No Known Drug Allergies Allergy (Mild, Verified 03/10/23 13:31) Unknown Medication List - Last Reconciled 03/10/23 by Geoff Reyes MD apixaban (Eliquis) 5 mg PO BID cetirizine 10 mg PO DAILY PRN cyanocobalamin (vitamin B-12) ER 2,000 mcg PO DAILY empagliflozin (Jardiance) 10 mg PO DAILY fluticasone propionate 50 mcg/actuation 1 spray intranasal DAILY glipizide 20 mg PO BID labetalol 200 mg PO BID levothyroxine 200 mcg PO DAILY lisinopril 20 mg PO DAILY simvastatin 20 mg PO DAILY Tobacco use date assessed: 10/20/22 Fall risk assessment: No Falls in past year Last assessed Fall Risk: 03/10/23 Dental Screening Dental Screen Date: 03/10/23 Did you have a dental visit in the last 12 months?: No Did you have a dental problem in the last 6 months where you did not have access to dental care?: No Was dental information given to patient?: No HPI sick for 2 weeks HPI Details 72-year-old [facility] [employer]. Reporting symptoms of sinus congestion, sore throat and difficulty swallowing. Low-grade fever. No family member is sick. No recent travel. Patient reports symptoms of malaise and fatigue. [facility] Medical History Allergic sinusitis Encounter to establish care Essential hypertension Herpes zoster HX: anticoagulation Hyperlipidemia Hypothyroidism Impacted cerumen, left ear Otitis media Paroxysmal A-fib Type II diabetes mellitus Surgical History History of colonoscopy H/O thumb surgery Family History Father No problems noted. Mother Diabetes Social History (Reviewed 03/10/23 @ 13:16 by JUANITA Ngo Housing: Apartment Alcohol intake: former Patient Tobacco Use Status: Never used Tobacco e-Cigarette/Vaping Use: Never Used Second Hand Smoke Exposure: Yes service: Yes Current occupational status: employed Current occupational exposures/hazards: No Cognitive needs: No Hearing needs: No Vision needs: Yes (Glasses) Questionnaire Thrive Questionnaire Date Thrive assessed: 04/02/22 MICHELE-7 AMB Questionnaire MICHELE-7 Date MICHELE - 7 assessed: 04/02/22 Source: Developed by Drs. Trae Simeon, Saida Campoverde, Chiki Hummel and colleagues, with an educational yeyo from [employer]. Review of Systems Const Reports body aches and Reports poor appetite Physical exam (Primary Care) Tobacco/Smoking Status: Tobacco use Status Tobacco use date assessed 10/20/22 03/10/23 13:16 Patient Tobacco Use Status Never used Tobacco 03/10/23 13:16 e-Cigarette/Vaping Use Never Used 03/10/23 13:16 Thrive Assessment: Date of Thrive Assessment Date Thrive assessed 04/02/22 03/10/23 13:16 Telehealth Telehealth Location of provider rendering services: practice address Location of patient: address on file Patient Identification confirmed using: Name, : Yes Telehealth method: voice only Patient verbally consented to treatment: Yes Patient verbally consented to billing insurance company: Yes Patient informed of any privacy concerns related to visit: Yes Minutes spent on Phone/Video with Pt.: 15 Assessment and Plan Assessment & Plan (1) Upper respiratory tract infection: Code(s): J06.9 - Acute upper respiratory infection, unspecified Plan: Antibiotics ordered. Increase fluid intake. Tylenol for aches and pains. If symptoms worsen, follow-up here for a recheck. Coding Level of Care Code Tele Est Pt Level 3 (41779) Diagnoses Upper respiratory tract infection J06.9
== END 2023-03-10 13:57 | disposition home or self-care (01) ==
LOC: HO.HMGH 13:16
PROVIDERS: PCP Nurse Practitioner Family; Visit Provider Internal Medicine
DX: J06.9 Acute upper respiratory infection, unspecified (principal)
CPT/HCPCS: G2252

== ENCOUNTER 2023-03-24 09:43 | Outpatient (AMB) | payer MEDICARE, SELFPAY ==
[2023-03-24 09:52] VITALS: BP 118/58; PULSE 76; RESP 17; O2SAT 98; BMI 30.8
--- NOTE | 2023-03-24 09:52 | A.OFFPC_ITS ---
Vital Signs 03/24/23 09:52 Height 5 ft 6 in Weight 191 lb BMI 30.8 BP 118/58 L Blood Pressure Location Lt brachial Position Sitting Respiration 17 Pulse 76 Pulse Source Pulse Oximeter Pulse Oximetry (%) 98 Oxygen Delivery Method Room Air Intake Visit Reasons: DM,HLD,HTN Intake Note: Patient is here to follow up on DM, HLD and HTN. Drafter Tool Design Required: No Accompanied by: Self / Same As Patient Allergies No Known Drug Allergies Allergy (Mild, Verified 03/24/23 10:24) Unknown Medication List - Last Reconciled 03/24/23 by John Mercado PA-C apixaban (Eliquis) 5 mg PO BID cetirizine 10 mg PO DAILY PRN cyanocobalamin (vitamin B-12) ER 2,000 mcg PO DAILY empagliflozin (Jardiance) 10 mg PO DAILY 30 days fluticasone propionate 50 mcg/actuation 1 spray intranasal DAILY glipizide 20 mg PO BID labetalol 200 mg PO BID levothyroxine 200 mcg PO DAILY lisinopril 20 mg PO DAILY 30 days simvastatin 20 mg PO DAILY Tobacco use date assessed: 03/24/23 Fall risk assessment: No Falls in past year Last assessed Fall Risk: 03/24/23 HPI DM,HLD,HTN HPI Details Patient is a 72-year-old male here today for transfer of care visit. Patient has a past medical history significant for type 2 diabetes, hypertension, hyperlipidemia, AFib. . AFib: Continues to follow cardiology ( [facility]) , continues on anticoagulation with any sides of overt bleeding, He otherwise denies any palpitations, shortness of breath on exertion, headaches or chest pain. .. Type 2 diabetes : Has been suboptimally controlled as A1c is slightly above 7. He reports his diabetes is usually weight related. He has gained weight over the last several months. He is trying to be more physically active at the gym. .. 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 His most recent TSH stable. Continues to take high dose levothyroxine .. Laboratory Tests 04/02/22 07/22/22 11/04/22 11:44 10:03 14:59 Hgb 12.7 L Hgb A1c (Clinic) 7.4 H 7.1 H PFSH Medical History Allergic sinusitis Encounter to establish care Essential hypertension Herpes zoster HX: anticoagulation Hyperlipidemia Hypothyroidism Impacted cerumen, left ear Otitis media Paroxysmal A-fib Type II diabetes mellitus Surgical History History of colonoscopy H/O thumb surgery Family History Father No problems noted. Mother Diabetes Social History Housing: Apartment Alcohol intake: former Patient Tobacco Use Status: Never used Tobacco e-Cigarette/Vaping Use: Never Used Second Hand Smoke Exposure: Yes service: Yes Current occupational status: employed Current occupational exposures/hazards: No Cognitive needs: No Hearing needs: No Vision needs: Yes (Glasses) Questionnaire PHQ-9 Over the last 2 weeks, how often have you been bothered by any of the following problems? 1. Little interest or pleasure in doing things: not at all 2. Feeling down, depressed, or hopeless: not at all 3. Trouble falling or staying asleep, or sleeping too much: not at all 4. Feeling tired or having little energy: not at all 5. Poor appetite or overeating: not at all 6. Feeling bad about yourself - or that you are a failure or have let yourself or your family down: not at all 7. Trouble concentrating on things, such as reading the newspaper or watching television: not at all 8. Moving or speaking so slowly that other people could have noticed. Or the opposite - being so fidgety or restless that you have been moving around a lot more than usual: not at all 9. Thoughts that you would be better off or of hurting yourself in some way: not at all Total score: 0 Depression Screening Interpretation: Negative Depression Screening Done: Yes 36575 - PHQ-9 Billing: Yes Source: Developed by Drs. Trae Simeon, Saida Campoverde, Chiki Hummel and colleagues, with an educational yeyo from [employer]. Thrive Questionnaire Date Thrive assessed: 03/24/23 I am a: Patient What is your living situation today?: I have a steady place to live Within the past 12 months, did the food you bought not last and you didn't have the money to get more?: Never true Within the past 12 months, did you worry whether your food would run out before you got money to buy more?: Never true Do you have trouble paying for medicines?: No Do you have trouble getting transportation to medical appointments?: No Do you have trouble paying your heating and electricity bill?: No Do you have trouble taking care of your child, family member or friend?: No Do you have trouble with day-to-day activities such as bathing, preparing meals, shopping, managing finances, etc.?: No Are you currently unemployed and looking for a job?: No Are you interested in more education?: No Please select the resources that you would like help with: None Currently or been in a relationship where the following occur: no concerns reported AUDIT C Alcohol Use Questionnaire (AUDIT-C) 1. How often do you have a drink containing alcohol?: Never 3. How often do you have six or more drinks on one occasion?: Never Total Score: 0 MICHELE-7 AMB Questionnaire MICHELE-7 Date MICHELE - 7 assessed: 03/24/23 Feeling nervous, anxious, or on edge: 0 = Not at all Not being able to stop or control worryin = Not at all Worrying too much about different things: 0 = Not at all Trouble relaxin = Not at all Being so restless that it is hard to sit still: 0 = Not at all Becoming easily annoyed or irritable: 0 = Not at all Feeling afraid as if something awful might happen: 0 = Not at all Total MICHELE-7 score (0-4 normal; 5-9 mild; 10-14 moderate; 15-21 severe): 0 Source: Developed by Drs. Trae Simeon, Saida Campoverde, Chiki Hummel and colleagues, with an educational yeyo from [employer]. MICHELE-7 Assessment Billing MICHELE-7 Assessment Tool: MICHELE-7 Assessment 63649 Review of Systems Const Denies headache(s) Eyes Denies loss of vision ENT Denies vertigo, Denies dizziness, Denies headache(s) and Denies sore throat Card Denies chest pain, Denies leg edema and Denies lightheadedness Resp Denies cough, Denies hemoptysis and Denies wheezing GI Denies abdominal pain, Denies melena, Denies constipation, Denies diarrhea and Denies vomiting Denies dysuria, Denies urinary frequency and Denies urinary urgency Musc Denies arthralgias, Denies joint swelling, Denies numbness and Denies tingling Neuro Denies Abnormal speech present, Denies behavioral changes, Denies vertigo, Denie s dizziness, Denies headache(s), Denies loss of vision, Denies memory loss, Denies numbness and Denies tingling Psych Denies anxiety, Denies behavioral changes, Denies depression, Denies memory loss and Denies panic attacks Jonathan/Lymph Denies easy bleeding and Denies easy bruising Aller/Immun Denies wheezing Physical exam (Primary Care) Vital Signs: Last Vital Signs Pulse 76 03/24/23 09:52 Resp 17 03/24/23 09:52 BP 118/58 L 03/24/23 09:52 Pulse Ox 98 03/24/23 09:52 Oxygen Delivery Method Room Air 03/24/23 09:52 BMI result Body Mass Index 30.8 BMI Assessment/Plan discussion: High Tobacco/Smoking Status: Tobacco use Status Tobacco use date assessed 03/24/23 03/24/23 10:02 Patient Tobacco Use Status Never used Tobacco 03/24/23 09:57 e-Cigarette/Vaping Use Never Used 03/24/23 09:57 PHQ-9: PHQ-9 Score PHQ-9: Total score 0 03/24/23 10:09 Depression Screening Interpretation: Negative Thrive Assessment: Date of Thrive Assessment Date Thrive assessed 03/24/23 03/24/23 10:02 Currently or been in a relationship where the following occur: no concerns reported Const Other: obese General: healthy appearing, no acute distress, alert and awake Nutritional Appearance: well nourished Orientation/consciousness: oriented to person, oriented to place and oriented to time HENMT Ears: TM's normal bilaterally General nose exam: Normal nasal mucous membranes and turbinates present Eyes Conjunctivae: conjunctivae normal Sclerae: sclerae normal Pupils: Equal, round and reactive pupils present Neck Neck: Yes no lymphadenopathy and Yes no JVD Thyroid: Thyroid normal Carotids: no bruits Resp Effort & Inspection: normal respiratory effort and not tachypneic Auscultation: no crackles, no rales, no rhonchi and no wheezes Cardio Rate: regular rate Rhythm: regular rhythm Heart sounds: no murmurs and normal S1 and S2 GI Palpation (GI): Soft to palpation, nontender, no hepatomegaly and no splenomegaly Auscultation: normal bowel sounds Skin General skin exam: no rashes or lesions noted and dry skin Neuro General: oriented to person, oriented to place and oriented to time Cranial nerves: Yes Equal, round and reactive pupils present Speech: No Abnormal speech present Gait exam (Neuro): Normal gait present Motor exam (neuro): no tremor noted Extrem Right upper extremity: full ROM Left upper extremity: full ROM Right lower extremity: full ROM; no edema Left lower extremity: full ROM; no edema Psych Mental Status: mental status grossly normal Speech and movement: Normal speech and movement present Affect: normal affect Attitude: cooperative Thought process: Normal thought process present Results AMB Hemoglobin A1c AMB Hemoglobin A1c 7.2 % Last Edit by MARY Lora on 03/24/23 10:03 Results Reviewed Results Reviewed: Laboratory Last Values Hgb A1c (Clinic) 7.2 % (4.0-6.0) H 03/24/23 10:03 Assessment and Plan Assessment & Plan (1) Essential hypertension: Code(s): I10 - Essential (primary) hypertension Plan: Patient's blood pressure acceptable today in office. Will continue his current dose of anti hypertension medication with goal blood pressure to remain below 140/90 (2) Type II diabetes mellitus: Code(s): E11.9 - Type 2 diabetes mellitus without complications Qualifiers: Diabetes mellitus complication status: with hyperglycemia Diabetes mellitus intermodal customer service insulin use: without intermodal customer service use Qualified Code(s): E11.65 - Type 2 diabetes mellitus with hyperglycemia Plan: Patient's type 2 diabetes suboptimally controlled with A1c at 7.2. Does follow an asphalt heater operator at [facility] who manages his diabetes and hypothyroidism. Goal A1c is to be below 7.0 (3) Paroxysmal A-fib: Code(s): I48.0 - Paroxysmal atrial fibrillation Plan: Patient is followed by Cardiology in [place]. He denies any dizziness or palpitations. He continues on Eliquis 5 mg b.i.d. without any overt signs of bleeding. (4) Hypothyroidism: Code(s): E03.9 - Hypothyroidism, unspecified Qualifiers: Hypothyroidism type: unspecified Qualified Code(s): E03.9 - Hypo thyroidism, unspecified Plan: Patient continues on levothyroxine 200 mcg. Again followed by endocrinology. Most recent TSH has been stable. (5) Hyperlipidemia: Code(s): E78.5 - Hyperlipidemia, unspecified Qualifiers: Hyperlipidemia type: mixed hyperlipidemia Qualified Code(s): E78.2 - Mixed hyperlipidemia Plan: Patient's most recent fasting lipid panel showing appropriate total cholesterol and LDL. Goal LDL to remain below 100. (6) Obese: Code(s): E66.9 - Obesity, unspecified Qualifiers: Body mass index: BMI 30.0-30.9 Obesity classification: adult class 1 (BMI 30 - 34.9) Obesity type: due to excess calories Serious obesity comorbidity presence: with serious comorbidity Qualified Code(s): E66.09 - Other obesity due to excess calories; Z68.30 - Body mass index [BMI] 30.0-30.9, adult Plan: He does understand his BMI is over 30 will work on being more physically active at the gym and some better eating habits to reduce his weight. Orders: Orders TSH reflex Free T4 Today E03.9 - Hypothyroidism, unspecified Lipid Panel Today E78.5 - Hyperlipidemia, unspecified Comprehensive Nichols. Panel Fast Today E11.65 - Type 2 diabetes mellitus with hyperglycemia Complete Blood Count no Diff Today E11.65 - Type 2 diabetes mellitus with hyperglycemia AMB Hemoglobin A1c Today E11.9 - Type 2 diabetes mellitus without complications Microalbumin, Random (w Creat) Today E11.65 - Type 2 diabetes mellitus with hyperglycemia Medications: Changed From lisinopril 20 mg PO DAILY I10 - Essential (primary) hypertension To lisinopril 20 mg PO DAILY 30 days 30 tabs 1RF I10 - Essential (primary) hypertension From empagliflozin (Jardiance) 10 mg PO DAILY E11.9 - Type 2 diabetes mellitus without complications To empagliflozin (Jardiance) 10 mg PO DAILY 30 days 30 tabs 1RF E11.9 - Type 2 diabetes mellitus without complications From apixaban (Eliquis) 5 mg PO BID I48.0 - Paroxysmal atrial fibrillation To apixaban (Eliquis) 5 mg PO BID 30 days 60 tabs 3RF I48.0 - Paroxysmal atrial fibrillation From cetirizine 10 mg PO DAILY PRN 14 caps 0RF allergy symptoms To cetirizine 10 mg PO DAILY 30 days 30 caps 3RF allergy symptoms From glipizide 20 mg PO BID E11.65 - Type 2 diabetes mellitus with hyperglycemia To glipizide 20 mg (2 x 10 mg) PO BID 30 days 120 tabs 3RF E11.65 - Type 2 diabetes mellitus with hyperglycemia Coding Level of Care Code Est Pt Level 4 (16188) Diagnoses Essential hypertension I10 Type 2 diabetes mellitus with hyperglycemia, without long-term current use of insulin E11.65 Diabetes mellitus complication status: with hyperglycemia Diabetes mellitus mcfp insulin use: without intermodal customer service use Paroxysmal A-fib I48.0 Hypothyroidism, unspecified type E03.9 Hypothyroidism type: unspecified Mixed hyperlipidemia E78.2 Hyperlipidemia type: mixed hyperlipidemia Class 1 obesity due to excess calories with serious comorbidity and body mass index (BMI) of 30.0 to 30.9 in adult E66.09; Z68.30 Body mass index: BMI 30.0-30.9 Obesity classification: adult class 1 (BMI 30 - 34.9) Obesity type: due to excess calories Serious obesity comorbidity presence: with serious comorbidity Additional Codes MICHELE-7 Assessment Billing - MICHELE-7 Assessment Tool: MICHELE-7 Assessment 69251 ([id number])
== END 2023-03-24 10:23 | disposition home or self-care (01) ==
PROVIDERS: PCP Physician Assistant; Visit Provider Physician Assistant
DX: I10 Essential (primary) hypertension (principal); E11.65 Type 2 diabetes mellitus with hyperglycemia; I48.0 Paroxysmal atrial fibrillation; E03.9 Hypothyroidism, unspecified; E78.2 Mixed hyperlipidemia; E66.09 Other obesity due to excess calories; Z68.30 Body mass index [BMI] 30.0-30.9, adult; E11.9 Type 2 diabetes mellitus without complications
CPT/HCPCS: 83036; 99214

== ENCOUNTER 2023-08-09 13:26 | Outpatient (AMB) | payer MEDICARE, SELFPAY ==
[2023-08-09 13:28] VITALS: BP 118/62; PULSE 68; O2SAT 96; BMI 29.7
--- NOTE | 2023-08-09 13:28 | A.OFFPC_ITS ---
Vital Signs 08/09/23 13:28 Height 5 ft 6 in Weight 184 lb 2 oz BMI 29.7 BP 118/62 Blood Pressure Location Lt brachial Position Sitting Pulse 68 Pulse Source Pulse Oximeter Pulse Oximetry (%) 96 Oxygen Delivery Method Room Air Intake Visit Reasons: Ear issues/ med change see notes Field Marketing Manager Required: No Accompanied by: Self / Same As Patient Allergies No Known Drug Allergies Allergy (Mild, Verified 08/09/23 13:50) Unknown Medication List - Last Reconciled 08/09/23 by John Mercado PA-C apixaban (Eliquis) 5 mg PO BID 30 days cetirizine 10 mg PO DAILY 30 days cyanocobalamin (vitamin B-12) ER 2,000 mcg PO DAILY empagliflozin (Jardiance) 10 mg PO DAILY 30 days glipizide 20 mg (2 x 10 mg) PO BID 30 days labetalol 200 mg PO BID levothyroxine 200 mcg PO DAILY lisinopril 20 mg PO DAILY 30 days simvastatin 20 mg PO DAILY tirzepatide (Mounjaro) 5 mg subcut QWEEK Tobacco use date assessed: 03/24/23 Fall risk assessment: No Falls in past year Last assessed Fall Risk: 08/09/23 Dental Screening Dental Screen Date: 03/10/23 HPI Ear issues/ med change see notes HPI Details Patient is a 72-year-old male here today for follow-up visit Patient has a past medical history significant for type 2 diabetes, hypertension, hyperlipidemia, AFib. Concern today--> he reports having left ear feeling of congestion and popping. He reports he needed his ears flushed out a year ago which helped his situation. . CHRONIC MEDICAL CONDITIONS--> AFib: Continues to follow cardiology ( [facility]) , continues on anticoagulation with any sides of overt bleeding, He otherwise denies any palpitations, shortness of breath on exertion, headaches or chest pain. .. Type 2 diabetes : Has been suboptimally controlled as A1c is slightly above 7. He reports his diabetes is usually weight related. He has gained weight over the last several months. He is trying to be more physically active at the gym. .. 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 His most recent TSH stable. Continues to take high dose levothyroxine [facility] Medical History (Updated 08/10/23 @ 07:48 by John Mercado PA-C) Impacted cerumen, left ear Otitis media Herpes zoster Encounter to establish care HX: anticoagulation Paroxysmal A-fib Hypothyroidism Type II diabetes mellitus Essential hypertension Allergic sinusitis Hyperlipidemia Surgical History History of colonoscopy H/O thumb surgery Family History Father No problems noted. Mother Diabetes Social History Housing: Apartment Alcohol intake: former Patient Tobacco Use Status: Never used Tobacco e-Cigarette/Vaping Use: Never Used Second Hand Smoke Exposure: Yes service: Yes Current occupational status: employed Current occupational exposures/hazards: No Cognitive needs: No Hearing needs: No Vision needs: Yes (Glasses) Questionnaire Thrive Questionnaire Date Thrive assessed: 03/24/23 MICHELE-7 AMB Questionnaire MICHELE-7 Date MICHELE - 7 assessed: 03/24/23 Source: Developed by Drs. Trae Simeon, Saida Campoverde, Chiki Hummel and colleagues, with an educational yeyo from [employer]. Review of Systems Const Denies headache(s) Eyes Denies loss of vision ENT Denies vertigo, Denies dizziness, Denies headache(s) and Denies sore throat Card Denies chest pain, Denies leg edema and Denies lightheadedness Resp Denies cough, Denies hemoptysis and Denies wheezing GI Denies abdominal pain, Denies melena, Denies constipation, Denies diarrhea and Denies vomiting Denies dysuria, Denies urinary frequency and Denies urinary urgency Musc Denies arthralgias, Denies joint swelling, Denies numbness and Denies tingling Neuro Denies Abnormal speech present, Denies behavioral changes, Denies vertigo, Denies dizziness, Denies headache(s), Denies loss of vision, Denies memory loss, Denies numbness and Denies tingling Psych Denies anxiety, Denies behavioral changes, Denies depression, Denies memory loss and Denies panic attacks Jonathan/Lymph Denies easy bleeding and Denies easy bruising Aller/Immun Denies wheezing Physical exam (Primary Care) Vital Signs: Last Vital Signs Pulse 68 08/09/23 13:28 BP 118/62 08/09/23 13:28 Pulse Ox 96 08/09/23 13:28 Oxygen Delivery Method Room Air 08/09/23 13:28 BMI result Body Mass Index 29.7 Tobacco/Smoking Status: Tobacco use Status Tobacco use date assessed 03/24/23 08/09/23 13:38 Patient Tobacco Use Status Never used Tobacco 08/09/23 13:38 e-Cigarette/Vaping Use Never Used 08/09/23 13:38 Thrive Assessment: Date of Thrive Assessment Date Thrive assessed 03/24/23 08/09/23 13:38 Const General: healthy appearing, no acute distress, alert and awake Nutritional Appearance: well nourished Orientation/consciousness: oriented to person, oriented to place and oriented to time HENMT Other: RIGHT EAR CERUMEN IMPACTION, AFTER LAVAGE CLEAR WITHOUT ANY ERYTHEMA OR TM BULGING Ears: TM's normal bilaterally General nose exam: Normal nasal mucous membranes and turbinates present Eyes Conjunctivae: conjunctivae normal Sclerae: sclerae normal Pupils: Equal, round and reactive pupils present Neck Neck: Yes no lymphadenopathy and Yes no JVD Thyroid: Thyroid normal Carotids: no bruits Resp Effort & Inspection: normal respiratory effort and not tachypneic Auscultation: no crackles, no rales, no rhonchi and no wheezes Cardio Rate: regular rate Rhythm: regular rhythm Heart sounds: no murmurs and normal S1 and S2 GI Palpation (GI): Soft to palpation, nontender, no hepatomegaly and no splenomegaly Auscultation: normal bowel sounds Skin General skin exam: no rashes or lesions noted and dry skin Neuro General: oriented to person, oriented to place and oriented to time Cranial nerves: Yes Equal, round and reactive pupils present Speech: No Abnormal speech present Gait exam (Neuro): Normal gait present Motor exam (neuro): no tremor noted Extrem Right upper extremity: full ROM Left upper extremity: full ROM Right lower extremity: full ROM; no edema Left lower extremity: full ROM; no edema Psych Mental Status: mental status grossly normal Speech and movement: Normal speech and movement present Affect: normal affect Attitude: cooperative Thought process: Normal thought process present Office Procedures Cerumen Removal From which ear canal was the cerumen removed: left Removal: irrigation and otoscope w/curette Notes: patient tolerated procedure well [id number] Wax Removal by Spoon/Curette Results AMB Hemoglobin A1c AMB Hemoglobin A1c 7.0 % Last Edit by MARY Lora on 08/09/23 13:50 Results Reviewed Results Reviewed: Laboratory Last Values Hgb A1c (Clinic) 7.0 % (4.0-6.0) H 08/09/23 13:49 Assessment and Plan Assessment & Plan (1) Impacted cerumen, left ear: Code(s): H61.22 - Impacted cerumen, left ear Plan: As per office procedure note. Patient tolerated left ear canal lavage. (2) Allergic rhinitis: Code(s): J30.9 - Allergic rhinitis, unspecified Qualifiers: Allergic rhinitis trigger: pollen Allergic rhinitis seasonality: seasonal Qualified Code(s): J30.1 - Allergic rhinitis due to pollen Plan: Has found that Astepro nasal spray has been effective for his nasal decongestant. Try to send script. Orders: Orders AMB Hemoglobin A1c 08/09/23 E11.65 - Type 2 diabetes mellitus with hyperglycemia Medications: New azelastine (Astepro Allergy) administer into each nostril 1 spray intranasal DAILY 30 days 30 mL 3RF J30.9 - Allergic rhinitis, unspecified Coding Level of Care Code Est Pt Level 3 (59720) Diagnoses Impacted cerumen, left ear H61.22 Seasonal allergic rhinitis due to pollen J30.1 Allergic rhinitis trigger: pollen Allergic rhinitis seasonality: seasonal CPT Codes Office Procedure - CPT: 29398-Kfz Wax Removal by Spoon/Curette ([id number])
== END 2023-08-09 14:09 | disposition home or self-care (01) ==
PROVIDERS: PCP Physician Assistant; Visit Provider Physician Assistant
DX: H61.22 Impacted cerumen, left ear (principal); J30.1 Allergic rhinitis due to pollen
CPT/HCPCS: 69210; 83036; 99213

== ENCOUNTER 2024-02-23 09:37 | Outpatient (AMB) | payer MEDICARE, SELFPAY ==
--- OUTSIDE RECORDS SUMMARY | 2024-02-23 09:41 | XMS_ITS | Continuity of Care Document ---
Author Organization [facility] [address] [facility] [address] [place] [address] Phone [phone] Care Team Providers Care Employment Manager Name Role Phone Tamera Prado NP Care Team Information Receive r [phone] Problems Active Problems Provider Date Type 2 diabetes mellitus Raymundo Diaz M.D. Onset: 11/25/2021 Hypothyroidism Raymundo Diaz M.D. Onset: 0 11/25/2021 Graves' disease Raymundo Diaz M.D. Onset: 0 11/25/2021 Atrial fibrillation Raymundo Diaz M.D. Onse t: 04/22/2022 Social History Type Date Description Comments Sex Unknown Lives With Girlfriend Tobacco Use Start: Unknown Never Smoked Cigarettes ETOH Use Occasionally consumed beer i n the past Allergies and adverse reactions Description No Known Drug Allergies Medications Active Medications SIG Qnty Indications Order ing Provider Date Freestyle Edna 3/Sensor/Glucose Monitoring Yieqgi6Nzyaud Misc use 1 sensor for 14 days to check blood sugars 9units E11.9 Raymundo Diaz M.D. 12/21/2023 Mounjaro7.5mg/0.5ML Solution Pen-Inject inject 7.5 mg subcutaneously once a week as directed 2ml E11.9 Raymundo Diaz M.D. 08/26/2023 Dexcom G7 Dehydrator Device Use as Directed 1units E11.9 Raymundo Diaz M.D. 05/27/2023 Dexcom G7 ReceiverDevice use for sugar reading dx e11.9 1units E11Yassine9 Raymundo Diaz M.D. 05/27/2023 Levothyroxine Gbvplo764pxh Tablets Take 1 Tablet 6 Days Per Week 78tabs Raymundo Diaz M.D. 04/29/2023 Atuhqsjlu27tx Tablets 1 by mouth every day 90tabs Raymundo Diaz M.D. 12/24/2021 Knmjeporgrcwwtsxkhe37 mg Tablets 1 by mouth every day 90tastan Diaz M.D. 11/25/2021 Pmxzatmfwd08me Tablets Take 1 Tablet By Mouth Every Day 90tastan Diaz M.D. 10/05/2021 Fvlphtyvdqb40tf Tablets Take 1 Tablet By Mouth Every Day 90tastan Diaz M.D. Glipizide/Metformin Hydrochloride5-500mg Tablets Take 2 Tablets Twice Daily 360tabs Raymundo Diaz M.D. Tovcjsl4eo Tablets Take 1 Tablet By Mouth Twice Daily Travon Eugene M.D. Labetalol TLQ630na Tablets Take 1 Tablet By Mouth Twice Daily 180tabs Raymundo Diaz M.D. Vital Signs Date Vital Result Comment 08/26/2023 1:12pm BP Systolic 110 mmHg BP Diastolic 70 mmHg Heart Rate 72 /min Height 66 inches 5'6 Weight 183.00 lb BMI (Body Mass Index) 29.5 kg/m2 Results Test Acquired Date Facility Test Result H/L Range Note TSH Rfx on Abnormal to Free T4 08/26/2023 [facility] TSH RFX On Abnormal To Free T4 5.920 uIU/mL High 0.450-4 .500 T4,Free (Direct) 1.21 ng/dL 0.82-1. 77 Laboratory test finding 08/26/2023 Inhouse Hemoglobin A1c 6.5% Glucose Fingerstick 148 Laboratory test finding 04/26/2023 [facility] TSH With Reflex To FT4 <pending> Comprehensive Metabolic Panl 04/25/2023 [facility] Glucose 109 mg/dL High (70-99) BUN 28 mg/dL High (8-23) Creatinine 0.7 mg/dL (0.7-1. 2) Sodium 144 mmol/L (133-14 5) Potassium 4.3 mmol/L (3.6-5. 2) Chloride 105 mmol/L (98-107 ) Bicarbonate 26 mmol/L (22-29) Anion Gap 13 (4-17) Albumin 4.5 GM/DL (3.4-4. 8) Calcium 9.8 mg/dL (8.6-10 .5) Bilirubin,Total 0.3 mg/dL (0-1.2 ) Total Protein 6.9 GM/DL (6.2-8. 2) Ag Ratio 1.9 Ast 12 U/L (0-40) Alk Phos 71 U/L (40-129 ) Alt 17 U/L (0-41) Estimated GFR Creatinine 95 ML/MIN/1.7 3M2 1 Lipid Panel 04/25/2023 [facility] Cholesterol, Total 162 mg/dL (<200) Triglyceride 100 mg/dL (<150) HDL Chol 47 mg/dL (>39) LDL Cholesterol, Calculated 95 mg/dL (0-130) Non HDL Cholesterol (Calc) 115 mg/dL (<160) Urinalysis Complete 04/25/2023 [facility] Appear/Color LIGHT YELLOW 2 SP. Leary 1.040 High (1.002- 1.030) Urine PH 6.0 (5.0-8. 0) Urine Albumin NEGATIVE (Neg) Urine Glucose 4+ Abnormal (Neg) Urine Ketones 1+ Abnormal (Neg) Urine Bilirubin NEGATIVE (Neg) Urine Hemoglobin NEGATIVE (Neg) Urine Nitrite NEGATIVE (Neg) Urine Leukocyte NEGATIVE (Neg) Urobilinogen NORMAL mg/dL (Norm) Urine WBCs <1 /HPF (0-5) Urine RBCs 1 /HPF (0-3) Complete Abc With Diff 04/25/2023 [facility] WBC 5.8 K/MM3 (4.0-11 .0) RBC 4.26 M/MM3 Low (4.70-6 .10) HGB 13.0 GM/DL Low (13.7-1 7.1) HCT 40.4 % Low (40.5-5 0.0) MCV 94.8 FL High (80.0-9 4.0) MCH 30.5 pg (27.0-3 4.0) MCHC 32.2 g/dL Low (33.0-3 7.0) PLT 141 K/MM3 Low (150-46 0) RDW-SD 45.6 FL (<47.0) MPV 12.3 FL (9.4-12 .4) Automated NRBC 0.0 #/100WBC'S Abs. NRBC 0.0 K/MM3 Neut # 3.1 K/MM3 (1.3-7. 0) Lymph # 2.1 K/MM3 (0.8-3. 1) [place]# 0.6 K/MM3 (0.4-1. 3) Eo # 0.1 K/MM3 (0.0-0. 4) Baso # 0.0 K/MM3 (0.0-0. 1) Abs. Imm Gran 0.0 K/MM3 Neut 52.8 % (44-76) Lymph 36.0 % (15-43) Monocyte 9.9 % (4.5-10 .5) Eo 0.9 % (0-6) Baso 0.2 % (0-2) Imm Gran 0.2 % Laboratory test finding 04/25/2023 [facility] TSH With Reflex To FT4 6.24 uIU/mL High (0.4-4. 2) Urinary Microalbumin 04/25/2023 [facility] Micro-Albumin <12.0 mg/L (<20) 3 Malb/Creat Ratio Unable to calcul <SEE NOTE> MG/GM (0-20) 4 Urine Creat For Micro Albumin 85.1 mg/dL Laboratory test finding 04/25/2023 [facility] Free T4 1.04 ng/dL (0.70-1 .80) Laboratory test finding 04/25/2023 Inhouse Hemoglobin A1c 7.7% Glucose Fingerstick 114 Laboratory test finding 11/01/2022 Inhouse Hemoglobin A1c 7.2% Glucose Fingerstick 111 Laboratory test finding 07/28/2022 Inhouse Hemoglobin A1c 7.5% Glucose Fingerstick 125 Laboratory test finding 04/22/2022 [facility] TSH With Reflex To FT4 1.66 uIU/mL (0.4-4. 2) Laboratory test finding 04/22/2022 Inhouse Hemoglobin A1c 7.7% Glucose Fingerstick 113 Laboratory test finding 11/25/2021 Inhouse Glucose Fingerstick 236 Hemoglobin A1c 7.9% 1 Creatinine based est imated glomerular filtration (eGFR) in adults is calculated using the [employer] recommended 2020 CKD-EPI equation. Estimates GFR from serum creatinine, age and sex. 2 CLEAR 3 The urine microalbum in test is designed to monitor renal function. When screening for Bence Godoy proteinuria, urine electrophoresis is recommended. 4 Unable to calculate Procedures Date Code Description Status 11/30/2023 NSHOWOFF No Show Office Visit Complet ed 08/10/2023 NSHOWOFF No Show Office Visit Complet ed 04/14/2023 NSHOWOFF No Show Office Visit Complet ed 02/24/2022 NSHOWOFF No Show Office Visit Complet ed Medical Devices Description No Information Available Encounters Type Date Location Provider Dx Diagnosis Office Visit 08/26/2023 1:15p Main Office Raymundo Diaz M.D. E03.9 Hypothyroidism, unspecified E11.9 Type 2 diabetes jose eduardo itus without complications Assessments Date Code Description Provider 08/26/2023 E03.9 Hypothyroidism Raymundo ceja M.D. 08/26/2023 E11.9 Type 2 diabetes mellitus without complications Raymundo Diaz M.D. Plan of Treatment 08/26/2023 - Raymundo Diaz M.D.* E03.9 Hypothyroidism * E11.9 Type 2 diabetes mellitus without complications Functional Status Description No Information Available Mental Status Description No Information Available Referrals Description No Information Available
[2024-02-23 10:09] VITALS: BP 100/48; PULSE 77; O2SAT 98; BMI 29.6
--- NOTE | 2024-02-23 10:09 | MHC.PC.OV ---
Vital Signs 02/23/24 10:09 Height 5 ft 6 in Weight 183 lb 4 oz BMI 29.6 BP 100/48 L Blood Pressure Location Lt brachial Position Sitting Pulse 77 Pulse Source Pulse Oximeter Pulse Oximetry (%) 98 Oxygen Delivery Method Room Air Intake Visit Reasons: f/u DMII/ AFIB Burn Table Operator Required: No Accompanied by: Self / Same As Patient Allergies No Known Drug Allergies Allergy (Mild, Verified 02/23/24 10:11) Unknown Medication List - Last Reconciled 02/23/24 by John Mercado PA-C apixaban (Eliquis) 5 mg PO BID 30 days azelastine (Astepro Allergy) 1 spray intranasal DAILY 30 days cetirizine 10 mg PO DAILY 30 days cyanocobalamin (vitamin B-12) ER 2,000 mcg PO DAILY empagliflozin (Jardiance) 10 mg PO DAILY 30 days glipizide 20 mg (2 x 10 mg) PO BID 30 days labetalol 200 mg PO BID levothyroxine 200 mcg PO DAILY lisinopril 20 mg PO DAILY 30 days simvastatin 20 mg PO DAILY tirzepatide (Mounjaro) 5 mg subcut QWEEK Tobacco use date assessed: 03/24/23 Fall risk assessment: No Falls in past year Last assessed Fall Risk: 02/23/24 Dental Screening Dental Screen Date: 02/23/24 Did you have a dental visit in the last 12 months?: Yes Did you have a dental problem in the last 6 months where you did not have access to dental care?: No Was dental information given to patient?: Patient has dentist HPI f/u DMII/ AFIB HPI Details Patient is a 73-year-old male here today for follow-up visit Patient has a past medical history significant for type 2 diabetes, hypertension, hyperlipidemia, AFib. Concern today--> has been having difficulties with his allergies having a lot of nasal congestion and postnasal drip. Also reports some bilateral ear congestion worse on left side. . CHRONIC MEDICAL CONDITIONS--> AFib: Continues to follow cardiology ( [facility]) , continues on anticoagulation with any sides of overt bleeding, He otherwise denies any palpitations, shortness of breath on exertion, headaches or chest pain. .. Type 2 diabetes : Patient's type 2 diabetes well controlled A1c today at 6.6.. He reports his diabetes is usually weight related. He has gained weight over the last several months. He is trying to be more physically active at the gym. .. Hypothyroidism: He is followed by development geologist at [facility]. His most recent TSH stable. Continues to take high dose levothyroxine. Laboratory Tests 03/24/23 08/09/23 10:03 13:49 Hgb A1c (Clinic) 7.2 H 7.0 H PFSH Medical History Impacted cerumen, left ear Otitis media Herpes zoster Encounter to establish care HX: anticoagulation Paroxysmal A-fib Hypothyroidism Type II diabetes mellitus Essential hypertension Allergic sinusitis Hyperlipidemia Surgical History History of colonoscopy H/O thumb surgery Family History Father No problems noted. Mother Diabetes Social History Housing: Apartment Alcohol intake: former Patient Tobacco Use Status: Never used Tobacco e-Cigarette/Vaping Use: Never Used Second Hand Smoke Exposure: Yes service: Yes Current occupational status: employed Current occupational exposures/hazards: No Cognitive needs: No Hearing needs: No Vision needs: Yes (Glasses) Questionnaire PHQ-9 Over the last 2 weeks, how often have you been bothered by any of the following problems? 1. Little interest or pleasure in doing things: not at all 2. Feeling down, depressed, or hopeless: not at all 3. Trouble falling or staying asleep, or sleeping too much: not at all 4. Feeling tired or having little energy: not at all 5. Poor appetite or overeating: not at all 6. Feeling bad about yourself - or that you are a failure or have let yourself or your family down: not at all 7. Trouble concentrating on things, such as reading the newspaper or watching television: not at all 8. Moving or speaking so slowly that other people could have noticed. Or the opposite - being so fidgety or restless that you have been moving around a lot more than usual: not at all 9. Thoughts that you would be better off or of hurting yourself in some way: not at all Total score: 0 Depression Screening Interpretation: Negative Depression Screening Done: Yes 21215 - PHQ-9 Billing: Yes Source: Developed by Drs. Trae Simeon, Saida Campoverde, Chiki Hummel and colleagues, with an educational yeyo from [employer]. Thrive Questionnaire Date Thrive assessed: 02/23/24 I am a: Patient What is your living situation today?: I have a steady place to live Within the past 12 months, did the food you bought not last and you didn't have the money to get more?: Never true Within the past 12 months, did you worry whether your food would run out before you got money to buy more?: Never true Do you have trouble paying for medicines?: No Do you have trouble getting transportation to medical appointments?: No Do you have trouble paying your heating and electricity bill?: No Do you have trouble taking care of your child, family member or friend?: No Do you have trouble with day-to-day activities such as bathing, preparing meals, shopping, managing finances, etc.?: No Are you currently unemployed and looking for a job?: No Are you interested in more education?: No Please select the resources that you would like help with: None Currently or been in a relationship where the following occur: No concerns reported THRIVE Score: 0 AUDIT C Alcohol Use Questionnaire (AUDIT-C) 1. How often do you have a drink containing alcohol?: Never 3. How often do you have six or more drinks on one occasion?: Never Total Score: 0 MICHELE-7 AMB Questionnaire MICHELE-7 Date MICHELE - 7 assessed: 02/23/24 Feeling nervous, anxious, or on edge: 0 = Not at all Not being able to stop or control worryin = Not at all Worrying too much about different things: 0 = Not at all Trouble relaxin = Not at all Being so restless that it is hard to sit still: 0 = Not at all Becoming easily annoyed or irritable: 0 = Not at all Feeling afraid as if something awful might happen: 0 = Not at all Total MICHELE-7 score (0-4 normal; 5-9 mild; 10-14 moderate; 15-21 severe): 0 Source: Developed by Saida Linares B.W. Gilles, Chiki Hummel and colleagues, with an educational yeyo from [employer]. MICHELE-7 Assessment Billing MICHELE-7 Assessment Tool: MICHELE-7 Assessment 06363 Review of Systems Const Denies headache(s) Eyes Denies loss of vision ENT Denies vertigo, Denies dizziness, Denies headache(s) and Denies sore throat Card Denies chest pain, Denies leg edema and Denies lightheadedness Resp Denies cough, Denies hemoptysis and Denies wheezing GI Denies abdominal pain, Denies melena, Denies constipation, Denies diarrhea and Denies vomiting Denies dysuria, Denies urinary frequency and Denies urinary urgency Musc Denies arthralgias, Denies joint swelling, Denies numbness and Denies tingling Neuro Denies Abnormal speech present, Denies behavioral changes, Denies vertigo, Denies dizziness, Denies headache(s), Denies loss of vision, Denies memory loss, Denies numbness and Denies tingling Psych Denies anxiety, Denies behavioral changes, Denies depression, Denies memory loss and Denies panic attacks Jonathan/Lymph Denies easy bleeding and Denies easy bruising Aller/Immun Denies wheezing Physical exam (Primary Care) Vital Signs: Last Vital Signs Pulse 77 02/23/24 10:09 BP 100/48 L 02/23/24 10:09 Pulse Ox 98 02/23/24 10:09 Oxygen Delivery Method Room Air 02/23/24 10:09 BMI result Body Mass Index 29.6 Tobacco/Smoking Status: Tobacco use Status Tobacco use date assessed 03/24/23 02/23/24 10:12 Patient Tobacco Use Status Never used Tobacco 02/23/24 10:12 e-Cigarette/Vaping Use Never Used 02/23/24 10:12 PHQ-9: PHQ-9 Score PHQ-9: Total score 0 02/23/24 10:20 Depression Screening Interpretation: Negative Thrive Assessment: Date of Thrive Assessment Date Thrive assessed 02/23/24 02/23/24 10:12 Currently or been in a relationship where the following occur: No concerns reported Const General: healthy appearing, no acute distress, alert and awake Nutritional Appearance: well nourished Orientation/consciousness: oriented to person, oriented to place and oriented to time HENMT Ears: TM's normal bilaterally General nose exam: Normal nasal mucous membranes and turbinates present Eyes Conjunctivae: conjunctivae normal Sclerae: sclerae normal Pupils: Equal, round and reactive pupils present Neck Neck: Yes no lymphadenopathy and Yes no JVD Thyroid: Thyroid normal Carotids: no bruits Resp Effort & Inspection: normal respiratory effort and not tachypneic Auscultation: no crackles, no rales, no rhonchi and no wheezes Cardio Rate: regular rate Rhythm: regular rhythm Heart sounds: no murmurs and normal S1 and S2 GI Palpation (GI): Soft to palpation, nontender, no hepatomegaly and no splenomegaly Auscultation: normal bowel sounds Skin General skin exam: no rashes or lesions noted and dry skin Neuro General: oriented to person, oriented to place and oriented to time Cranial nerves: Yes Equal, round and reactive pupils present Speech: No Abnormal speech present Gait exam (Neuro): Normal gait present Motor exam (neuro): no tremor noted Extrem Right upper extremity: full ROM Left upper extremity: full ROM Right lower extremity: full ROM; no edema Left lower extremity: full ROM; no edema Psych Mental Status: mental status grossly normal Speech and movement: Normal speech and movement present Affect: normal affect Attitude: cooperative Thought process: Normal thought process present Office Procedures Flu Questionnaire Does the patient have a severe egg allergy?: No Does the patient have severe life threatening allergies?: No Does the patient have a fever or illness today?: No Has the patient ever had Guillain-[place] Syndrome?: No Has the patient ever had any past reaction to a flu shot?: No Results AMB Hemoglobin (HGB) AMB Hemoglobin (HGB) 6.6 g/dL Last Edit by MARY Lora on 02/23/24 10:21 AMB Hemoglobin A1c AMB Hemoglobin A1c 6.6 % Last Edit by MARY Lora on 02/23/24 10:21 Immunizations Fluarix Triv [id number] (PF) 45 mcg (15 mcg x 3)/0.5 mL IM syringe Performing Provider: John Mercado PA-C [facility] Administered by: MARY Lora on 02/23/24 10:18 Dose Route Admin Location Dispensed Lot Number Expiration Date [facility] [employer] Spreading Machine Operator 0.5 mL IM Left Deltoid 0.5 mL [id number] 09/10/24 [id number] [employer] VIS Given Date VIS Provided VIS Publication Date 02/23/24 Single Vaccine 20 Eligibility Eligibility Date Funding Source Not [facility] Eligible 02/23/24 Private Results Reviewed Results Reviewed: Laboratory Last Values Hemoglobin (Clinic) 6.6 g/dL 02/23/24 10:19 Hgb A1c (Clinic) 6.6 % (4.0-6.0) H 02/23/24 10:19 Coding Level of Care Code Est Pt Level 4 (70610) Diagnoses Type 2 diabetes mellitus with hyperglycemia, without long-term current use of insulin E11.65 Diabetes mellitus complication status: with hyperglycemia Diabetes mellitus custodial insulin use: without long wall shear operator use Essential hypertension I10 Mixed hyperlipidemia E78.2 Hyperlipidemia type: mixed hyperlipidemia Hypothyroidism, unspecified type E03.9 Hypothyroidism type: unspecified Paroxysmal A-fib I48.0 Additional Codes MICHELE-7 Assessment Billing - MICHELE-7 Assessment Tool: MICHELE-7 Assessment 89629 ([id number]) PHQ-9 - 28651 - PHQ-9 Billing: Yes ([id number]) Assessment & Plan Assessment & Plan (1) Type II diabetes mellitus: Code(s): E11.9 - Type 2 diabetes mellitus without complications Category: Medical Qualifiers: Diabetes mellitus complication status: with hyperglycemia Diabetes mellitus long wall shear operator insulin use: without long wall shear operator use Qualified Code(s): E11.65 - Type 2 diabetes mellitus with hyperglycemia Plan: Patient's type 2 diabetes well controlled on current medication. Was started on GLP 1 and has lost weight and as capture some glycemic control. Unfortunately GLP 1 has been expensive for him so intermittently takes the medication. (2) Essential hypertension: Code(s): I10 - Essential (primary) hypertension Category: Medical Plan: Patient's blood pressure low today in office. He does admit to being somewhat dizzy when he squats down to tie his shoes.. Will reduce his lisinopril dose to 10 mg Goal blood pressures to be below 140/90 and above 100/60 (3) Hyperlipidemia: Code(s): E78.5 - Hyperlipidemia, unspecified Category: Medical Qualifiers: Hyperlipidemia type: mixed hyperlipidemia Qualified Code(s): E78.2 - Mixed hyperlipidemia Plan: Patient promises to get fasting labs done before next office visit. Goal LDL is to be below 100 due to his cardiovascular risk. (4) Hypothyroidism: Code(s): E03.9 - Hypothyroidism, unspecified Category: Medical Qualifiers: Hypothyroidism type: unspecified Qualified Code(s): E03.9 - Hypothyroidism, unspecified Plan: Patient continues to follow Endocrinology at [facility]. He continues on levothyroxine 200 mcg. Will continue to follow TSH to assure normal. (5) Paroxysmal A-fib: Code(s): I48.0 - Paroxysmal atrial fibrillation Category: Medical Plan: Patient is followed by [facility]. Has not been seen in quite some time. Continues on labetalol for rate control and Eliquis as his anticoagulation. He denies any overt signs of bleeding. Orders: Orders TSH reflex Free T4 02/24/24 E03.9 - Hypothyroidism, unspecified Lipid Panel 02/24/24 E78.2 - Mixed hyperlipidemia Microalbumin, Random (w Creat) 02/24/24 E11.65 - Type 2 diabetes mellitus with hyperglycemia Comprehensive [place]. Panel Fast 02/24/24 E11.65 - Type 2 diabetes mellitus with hyperglycemia Prostate Specific Antigen Scr 02/24/24 E11.65 - Type 2 diabetes mellitus with hyperglycemia, Z12.5 - Encounter for screening for malignant neoplasm of prostate Influenza [id number] Immunization 02/23/24 Z23 - Encounter for immunization AMB Hemoglobin (HGB) 02/23/24 E11.65 - Type 2 diabetes mellitus with hyperglycemia AMB Hemoglobin A1c 02/23/24 E11.65 - Type 2 diabetes mellitus with hyperglycemia Complete Blood Count no Diff 02/24/24 E11.65 - Type 2 diabetes mellitus with hyperglycemia Medications: New lisinopril 10 mg PO DAILY 90 tabs 1RF 90 days I10 - Essential (primary) hypertension Discontinued lisinopril Discontinued Reason: Doctor's Order 20 mg PO DAILY 30 days 30 tabs 1RF I10 - Essential (primary) hypertension
== END 2024-02-23 10:33 | disposition home or self-care (01) ==
PROVIDERS: PCP Physician Assistant; Visit Provider Physician Assistant
DX: Z23 Encounter for immunization (principal); E11.65 Type 2 diabetes mellitus with hyperglycemia

== ENCOUNTER → 2024-02-23 09:37 | Outpatient (BNVA) | payer MEDICARE, SELFPAY | PROVIDERS: PCP Physician Assistant; Visit Provider Physician Assistant | DX: Z23 Encounter for immunization (principal); E11.65 Type 2 diabetes mellitus with hyperglycemia; E78.2 Mixed hyperlipidemia; I10 Essential (primary) hypertension; E03.9 Hypothyroidism, unspecified; I48.0 Paroxysmal atrial fibrillation | CPT/HCPCS: 83036; 85018; 90471; 90656; 96127; 99212 ==

== ENCOUNTER 2024-02-24 09:46 | Outpatient (REF) | payer MEDICARE, SELFPAY ==
--- OUTSIDE RECORDS SUMMARY | 2024-02-24 09:50 | XMS_ITS | Continuity of Care Document ---
Author Organization [facility] [address] [place] [address] Phone [phone] Care Team Providers Care Training Assistant Name Role Phone Tamera Prado NP Care Team Information Receive r [phone] Problems Active Problems Provider Date Type 2 [...] ing Provider Date Freestyle Edna 3/Sensor/Glucose Monitoring Gvxyet3Jdizcg Misc use 1 sensor for 14 days to check blood sugars 9units E11.9 Raymundo Diaz M.D. 12/21/2023 Mounjaro7.5mg/0.5ML Solution Pen-Inject inject 7.5 mg subcutaneously once a week as directed 2ml E11.9 Raymundo Diaz M.D. 08/26/2023 Dexcom G7 Credit Control Manager Device Use as Directed 1units E11.9 Raymundo Diaz M.D. 05/27/2023 Dexcom G7 ReceiverDevice use for sugar reading dx e11.9 1units E11Yassine9 Raymundo Diaz M.D. 05/27/2023 Levothyroxine Jfhoiu756eym Tablets Take 1 Tablet 6 Days Per Week 78tabs Raymundo Diaz M.D. 04/29/2023 Uwdepwmlx25xz Tablets 1 by mouth every day 90tabs Raymundo Diaz M.D. 12/24/2021 Gctpsndiezfzhpvlcys43 mg Tablets 1 by mouth every day 90tastan Diaz M.D. 11/25/2021 Csujuvobbx14gi Tablets Take 1 Tablet By Mouth Every Day 90tastan Diaz M.D. 10/05/2021 Mbcvvymsoxp82up Tablets Take 1 Tablet By Mouth Every Day 90tastan Diaz M.D. Glipizide/Metformin Hydrochloride5-500mg Tablets Take 2 Tablets Twice Daily 360tabs Raymundo Diaz M.D. Gmwaxua6is Tablets Take 1 Tablet By Mouth Twice Daily Travon Eugene M.D. Labetalol OCS435jb Tablets Take 1 Tablet By Mouth Twice [...] Glucose Fingerstick 148 Laboratory test finding 04/26/2023 [facility] TSH With Reflex To FT4 <pending> Comprehensive Metabolic Panl 04/25/2023 [facility] Glucose 109 mg/dL High [...] 95 ML/MIN/1.7 3M2 1 Lipid Panel 04/25/2023 [facility] Cholesterol, Total 162 mg/dL (<200) Triglyceride 100 mg/dL (<150) HDL Chol 47 mg/dL (>39) LDL Cholesterol, Calculated 95 mg/dL (0-130) Non HDL Cholesterol (Calc) 115 mg/dL (<160) Urinalysis Complete 04/25/2023 [facility] Appear/Color LIGHT YELLOW 2 SP. [place] 1.040 High (1.002- 1.030) Urine PH 6.0 (5.0-8. 0) Urine Albumin NEGATIVE (Neg) Urine Glucose 4+ Abnormal (Neg) Urine Ketones 1+ Abnormal (Neg) Urine Bilirubin NEGATIVE (Neg) Urine Hemoglobin NEGATIVE (Neg) Urine Nitrite NEGATIVE (Neg) Urine Leukocyte NEGATIVE (Neg) Urobilinogen NORMAL mg/dL (Norm) Urine WBCs <1 /HPF (0-5) Urine RBCs 1 /HPF (0-3) Complete Abc With Diff 04/25/2023 [facility] WBC 5.8 K/MM3 (4.0-11 [...] 0) Lymph # 2.1 K/MM3 (0.8-3. 1) Kimble# 0.6 K/MM3 (0.4-1. 3) Eo # 0.1 K/MM3 (0.0-0. 4) Baso # 0.0 K/MM3 (0.0-0. 1) Abs. Imm Gran 0.0 K/MM3 Neut 52.8 % (44-76) Lymph 36.0 % (15-43) Monocyte 9.9 % (4.5-10 .5) Eo 0.9 % (0-6) Baso 0.2 % (0-2) Imm Gran 0.2 % Laboratory test finding 04/25/2023 [facility] TSH With Reflex To FT4 6.24 uIU/mL High (0.4-4. 2) Urinary Microalbumin 04/25/2023 [facility] Micro-Albumin <12.0 mg/L (<20) 3 Malb/Creat Ratio Unable to calcul <SEE NOTE> MG/GM (0-20) 4 Urine Creat For Micro Albumin 85.1 mg/dL Laboratory test finding 04/25/2023 [facility] Free T4 1.04 ng/dL (0.70-1 .80) Laboratory test finding 04/25/2023 Inhouse Hemoglobin A1c 7.7% Glucose Fingerstick 114 Laboratory test finding 11/01/2022 Inhouse Hemoglobin A1c 7.2% Glucose Fingerstick 111 Laboratory test finding 07/28/2022 Inhouse Hemoglobin A1c 7.5% Glucose Fingerstick 125 Laboratory test finding 04/22/2022 [facility] TSH With Reflex To [...]
[2024-02-24 10:29] LABS: Hematocrit 41.2 % (42.0-52.0); Hemoglobin 13.6 g/dl (14.0-18.0); Mean Corpuscular Volume 93.8 fL (80.0-98.0); Mean Platelet Volume 11.2 fL (9.4-12.4); Platelet Count 156 X10*3/uL (160-400); Red Blood Count 4.39 X10*6/uL (4.60-5.80); Red Cell Distribution Width 12.9 % (11.0-16.0); White Blood Count 5.3 X10*3/uL (4.8-10.8)
[2024-02-24 11:14] LABS: Prostate Specific Antigen Scr 0.45 ng/mL (<0.05-4.0)
[2024-02-24 11:26] LABS: TSH reflex Free T4 4.74 uIU/mL (0.32-4.0)
[2024-02-24 11:27] LABS: Creatinine Urine 120.77 mg/dL; Microalbum/Creatinine Ratio Ur 10.7 ug/mg cr (<30)
[2024-02-24 11:29] LABS: Anion Gap 9 (12-20)
[2024-02-24 11:34] LABS: Alanine Aminotransferase 19 U/L (0-40); Albumin Level 4.3 g/dL (3.5-5.0); Alkaline Phosphatase 81 U/L (39-117); Aspartate Amino Transferase 16 U/L (5-37); Bilirubin Total 0.5 mg/dL (0.0-1.0); Blood Urea Nitrogen 19 mg/dL (9-16); Calcium 9.6 mg/dL (8.4-10.2); Carbon Dioxide 31 mmol/L (22-29); Chloride 106 mmol/L (96-108); Cholesterol 139 mg/dL (<200); Estimated Glomerular Filt Rate > 60; Glucose Fasting 143 mg/dL (60-99); HDL Cholesterol 44 mg/dL (>40); LDL Cholesterol Calculated 83 mg/dL (<100); Potassium 4.4 mmol/L (3.3-5.1); Sodium 142 mmol/L (135-145); Total Protein 7.1 g/dL (6.5-8.0); Triglycerides 62 mg/dL (<150)
[2024-02-24 11:56] LABS: Free T4 (Free Thyroxine) 0.99 ng/dL (0.71-1.85)
== END 2024-02-24 09:47 | disposition home or self-care (01) ==
LOC: HO.LAB 09:46
PROVIDERS: PCP Physician Assistant; Visit Provider Physician Assistant
DX: E78.5 Hyperlipidemia, unspecified (principal); E11.65 Type 2 diabetes mellitus with hyperglycemia; Z12.5 Encounter for screening for malignant neoplasm of prostate; E03.9 Hypothyroidism, unspecified
CPT/HCPCS: 36415; 80053; 80061; 82043; 82570; 84153; 84439; 84443; 85027

== ENCOUNTER 2024-04-11 10:41 | Outpatient (AMB) | payer MEDICARE, SELFPAY ==
--- NOTE | 2024-04-11 11:15 | MHC.PC.OV ---
Vital Signs 04/11/24 11:18 Height 5 ft 6 in Weight 180 lb 4 oz BMI 29.1 BP 130/60 Blood Pressure Location Lt brachial Position Sitting Pulse 78 Pulse Source Pulse Oximeter Temp 97.3 F Pulse Oximetry (%) 96 Oxygen Delivery Method Room Air Intake Visit Reasons: ear wax removal [employer] Required: No Accompanied by: Self / Same As Patient Allergies No Known Drug Allergies Allergy (Mild, Verified 04/11/24 11:35) Unknown Medication List - Last Reconciled 04/11/24 by John Mercado PA-C apixaban (Eliquis) 5 mg PO BID 30 days azelastine (Astepro Allergy) 1 spray intranasal DAILY 30 days cetirizine 10 mg PO DAILY 30 days cyanocobalamin (vitamin B-12) ER 2,000 mcg PO DAILY empagliflozin (Jardiance) 10 mg PO DAILY 30 days glipizide 20 mg (2 x 10 mg) PO BID 30 days labetalol 200 mg PO BID levothyroxine 200 mcg PO DAILY lisinopril 10 mg PO DAILY 90 days simvastatin 20 mg PO DAILY tirzepatide (Mounjaro) 5 mg subcut QWEEK Tobacco use date assessed: 04/11/24 Fall risk assessment: No Falls in past year Last assessed Fall Risk: 04/11/24 Dental Screening Dental Screen Date: 04/11/24 Did you have a dental visit in the last 12 months?: Yes Did you have a dental problem in the last 6 months where you did not have access to dental care?: No Was dental information given to patient?: Patient has dentist HPI ear wax removal HPI Details Here today for earwax removal of bilateral ears. Patient tolerated procedure well as per office visit procedure note. [facility] Medical History Impacted cerumen, left ear Otitis media Herpes zoster Encounter to establish care HX: anticoagulation Paroxysmal A-fib Hypothyroidism Type II diabetes mellitus Essential hypertension Allergic sinusitis Hyperlipidemia Surgical History History of colonoscopy H/O thumb surgery Family History Father No problems noted. Mother Diabetes Social History Housing: Apartment Alcohol intake: former Patient Tobacco Use Status: Never used Tobacco e-Cigarette/Vaping Use: Never Used Second Hand Smoke Exposure: Yes service: Yes Current occupational status: employed Current occupational exposures/hazards: No Cognitive needs: No Hearing needs: No Vision needs: Yes (Glasses) Questionnaire PHQ-9 Over the last 2 weeks, how often have you been bothered by any of the following problems? 1. Little interest or pleasure in doing things: not at all 2. Feeling down, depressed, or hopeless: not at all 3. Trouble falling or staying asleep, or sleeping too much: not at all 4. Feeling tired or having little energy: not at all 5. Poor appetite or overeating: not at all 6. Feeling bad about yourself - or that you are a failure or have let yourself or your family down: not at all 7. Trouble concentrating on things, such as reading the newspaper or watching television: not at all 8. Moving or speaking so slowly that other people could have noticed. Or the opposite - being so fidgety or restless that you have been moving around a lot more than usual: not at all 9. Thoughts that you would be better off or of hurting yourself in some way: not at all Total score: 0 Depression Screening Interpretation: Negative Depression Screening Done: Yes 27285 - PHQ-9 Billing: Yes Source: Developed by Drs. Trae Simeon, Saida Campoverde, Chiki Hummel and colleagues, with an educational yeyo from [employer]. Thrive Questionnaire Date Thrive assessed: 04/11/24 I am a: Patient What is your living situation today?: I have a steady place to live Within the past 12 months, did the food you bought not last and you didn't have the money to get more?: Never true Within the past 12 months, did you worry whether your food would run out before you got money to buy more?: Never true Do you have trouble paying for medicines?: No Do you have trouble getting transportation to medical appointments?: No Do you have trouble paying your heating and electricity bill?: No Do you have trouble taking care of your child, family member or friend?: No Do you have trouble with day-to-day activities such as bathing, preparing meals, shopping, managing finances, etc.?: No Are you currently unemployed and looking for a job?: No Are you interested in more education?: No Please select the resources that you would like help with: None Currently or been in a relationship where the following occur: No concerns reported THRIVE Score: 0 AUDIT C Alcohol Use Questionnaire (AUDIT-C) 1. How often do you have a drink containing alcohol?: Never 3. How often do you have six or more drinks on one occasion?: Never Total Score: 0 MICHELE-7 AMB Questionnaire MICHELE-7 Date MICHELE - 7 assessed: 04/11/24 Feeling nervous, anxious, or on edge: 0 = Not at all Not being able to stop or control worryin = Not at all Worrying too much about different things: 0 = Not at all Trouble relaxin = Not at all Being so restless that it is hard to sit still: 0 = Not at all Becoming easily annoyed or irritable: 0 = Not at all Feeling afraid as if something awful might happen: 0 = Not at all Total MICHELE-7 score (0-4 normal; 5-9 mild; 10-14 moderate; 15-21 severe): 0 Source: Developed by Drs. Trae Simeon, Saida Campoverde, Chiki Hummel and colleagues, with an educational yeyo from [employer]. MICHELE-7 Assessment Billing MICHELE-7 Assessment Tool: MICHELE-7 Assessment 09541 Review of Systems Const Denies headache(s) Eyes Denies loss of vision ENT Denies vertigo, Denies dizziness, Denies headache(s) and Denies sore throat Card Denies chest pain, Denies leg edema and Denies lightheadedness Resp Denies cough, Denies hemoptysis and Denies wheezing GI Denies abdominal pain, Denies melena, Denies constipation, Denies diarrhea and Denies vomiting Denies dysuria, Denies urinary frequency and Denies urinary urgency Musc Denies arthralgias, Denies joint swelling, Denies numbness and Denies tingling Neuro Denies Abnormal speech present, Denies behavioral changes, Denies vertigo, Denies dizziness, Denies headache(s), Denies loss of vision, Denies memory loss, Denies numbness and Denies tingling Psych Denies anxiety, Denies behavioral changes, Denies depression, Denies memory loss and Denies panic attacks Jonathan/Lymph Denies easy bleeding and Denies easy bruising Aller/Immun Denies wheezing Physical exam (Primary Care) Vital Signs: Last Vital Signs Temp 97.3 F 04/11/24 11:18 Pulse 78 04/11/24 11:18 BP 130/60 04/11/24 11:18 Pulse Ox 96 04/11/24 11:18 Oxygen Delivery Method Room Air 04/11/24 11:18 BMI result Body Mass Index 29.1 Tobacco/Smoking Status: Tobacco use Status Tobacco use date assessed 04/11/24 04/11/24 11:25 Patient Tobacco Use Status Never used Tobacco 04/11/24 11:15 e-Cigarette/Vaping Use Never Used 04/11/24 11:15 PHQ-9: PHQ-9 Score PHQ-9: Total score 0 04/11/24 11:38 Depression Screening Interpretation: Negative Thrive Assessment: Date of Thrive Assessment Date Thrive assessed 04/11/24 04/11/24 11:25 Currently or been in a relationship where the following occur: No concerns reported Const General: healthy appearing, no acute distress, alert and awake Nutritional Appearance: well nourished Orientation/consciousness: oriented to person, oriented to place and oriented to time HENMT Other: BILATERAL EAR CANALS CLEAR CERUMEN AFTER LAVAGE. NO SIGNS OF OTITIS MEDIA OR EXTERNA. Ears: TM's normal bilaterally General nose exam: Normal nasal mucous membranes and turbinates present Eyes Conjunctivae: conjunctivae normal Sclerae: sclerae normal Pupils: Equal, round and reactive pupils present Neck Neck: Yes no lymphadenopathy and Yes no JVD Thyroid: Thyroid normal Carotids: no bruits Resp Effort & Inspection: normal respiratory effort and not tachypneic Auscultation: no crackles, no rales, no rhonchi and no wheezes Cardio Rate: regular rate Rhythm: regular rhythm Heart sounds: no murmurs and normal S1 and S2 GI Palpation (GI): Soft to palpation, nontender, no hepatomegaly and no splenomegaly Auscultation: normal bowel sounds Skin General skin exam: no rashes or lesions noted and dry skin Neuro General: oriented to person, oriented to place and oriented to time Cranial nerves: Yes Equal, round and reactive pupils present Speech: No Abnormal speech present Gait exam (Neuro): Normal gait present Motor exam (neuro): no tremor noted Extrem Right upper extremity: full ROM Left upper extremity: full ROM Right lower extremity: full ROM; no edema Left lower extremity: full ROM; no edema Psych Mental Status: mental status grossly normal Speech and movement: Normal speech and movement present Affect: normal affect Attitude: cooperative Thought process: Normal thought process present Office Procedures Cerumen Removal From which ear canal was the cerumen removed: bilateral Removal: irrigation and otoscope w/curette Notes: patient tolerated procedure well 95495-Zrc Irrigation/Lavage Coding Level of Care Code Est Pt Level 2 (13772) Diagnoses Impacted cerumen of both ears H61.23 CPT Codes Office Procedure - CPT: 57786-Rtc Irrigation/Lavage ([id number]) Additional Codes MICHELE-7 Assessment Billing - MICHELE-7 Assessment Tool: MICHELE-7 Assessment 36779 ([id number]) PHQ-9 - 84621 - PHQ-9 Billing: Yes ([id number]) Assessment & Plan Assessment & Plan (1) Impacted cerumen of both ears: Code(s): H61.23 - Impacted cerumen, bilateral Category: Medical Plan: As per office procedure note.
[2024-04-11 11:18] VITALS: BP 130/60; PULSE 78; TEMP 36.3; O2SAT 96; BMI 29.1
--- OUTSIDE RECORDS SUMMARY | 2024-04-11 12:46 | XMS_ITS ---
Author Organization [facility] Address [address] [place] [address] Care Team Providers Care Gauge And Instrument Inspector Name Role Phone John Mercado Primary Care Provider Unavailab Robbin Meyer Unavailable [phone] Allergies No Known Allergies REASON FOR VISIT At Risk Footcare, Foot pain Medications Medication SIG (Take, Route, Frequency, Duration) Notes Start Date End Date Status Labetalol HCl Active metFORMIN HCl w/ glipizide Act maya Lisinopril Active Levothyroxine Sodium Active eliquis 5 mg Active glipiZIDE Active Simvastatin Active Extra Depth Diabetic Shoes with 3 Pair Custom heat-molded multi-density innersoles for 1 year Dx: A ctive Social History Tobacco Use: Social History Observation Description Date Details (start date - stop date) Never Smoker NA - NA Tobacco Use/Smoking Question Answer Notes Are you a: nonsmoker Additional Findings: Tobacco Non-User Aggressive non-smoker Alcohol Screen Question Answer Notes Did you have a drink containing alcohol in the p ast year? No Points 0 Interpretation Negative Tobacco use other than smoking: Question Answer Notes Are you an other tobacco user? No Vital Signs Height 5ft 6in in 11/25/2023 Weight 195 lbs 11/25/2023 BMI 31.47 kg/m2 11/25/2023 Encounters Encounter [facility] Date [facility] [address] [place] [address] 11/25/2023 Robbin Alva Type 2 diabetes jose eduardo itus with diabetic polyneuropathy E11.42 ; Tinea unguium B35.1 ; Other hammer toe(s) (acquired), right foot M20.41 ; Other hammer toe(s) (acquired), left foot M20.42 ; Unspecified atherosclerosis of inupiat arteries of extremities, bilateral legs I70.203 and Xerosis cutis L85.3 Assessments Encounter Date Diagnosis (ICD Code) Assessment Notes Treatment Notes Treatment Clinical Notes Section Notes 11/25/2023 Type 2 diabetes mellitus with diabetic polyneuropathy (ICD-10 - E11.42) Patient Educated with: DIABETIC FOOT CARE INSTRUCTIONS. pdf (DIABETIC FOOT CARE INSTRUCTIONS. pdf) 11/25/2023 Tinea unguium (ICD-10 - B35.1) 11/25/2023 Other hammer toe(s) (acquired), right foot (ICD-10 - M20.41) 11/25/2023 Other hammer toe(s) (acquired), left foot (ICD-10 - M20.42) 11/25/2023 Unspecified atherosclerosis of inupiat arteries of extremities, bilateral legs (ICD-10 - I70.203) 11/25/2023 Xerosis cutis (ICD-10 - L85.3) Plan Of Treatment Medication Medication Name Sig Start Date Stop Date Notes Extra Depth Diabetic Shoes w ith 3 Pair Custom heat-molded multi-density innersoles for 1 year Dx: Treatment Notes Assessment Notes Type 2 diabetes mellitus wit h diabetic polyneuropathy Patient Educated with: DIABETIC FOOT CARE INSTRUCTIONS.pdf (DIABETIC FOOT CARE INSTRUCTIONS.pdf) Next Appt Details Follow Up: 3 Months, Reason: Provider Name:Piper rice, 06/26/2024 11:00:00 AM, [address] [facility], [place] [place] [address], [place], [address], Procedure Notes * Category Sub-Category Detail Notes Keratoma Treatment Parring or Cutting o f Benign Hyperkeratotic Lesion(s) 90658 ( More than 4 Lesions ) - The Benign hyperkeratotic lesions, as described above were pared, and/or cut utilizing a sterile 15 blade, tissue nippers, and/or dremel Progress Notes * Beulah QUIÑONEZ CDOB:1950 (73 yo M)Acc No.[id number]:11/25/2023 Progress Note Patient:?Beulah Quiñonez C Provider:?Robbin AlvaKASSIDYM :1950???Age:73 Y???Sex:Male Gino e:11/25/2023 Address:[address] [place] [address] [id number] Pcp:John Mercado Subjective: * Chief Complaints: * ???At Risk FootcareFoot pain * HPI: ???At Risk footcare:?Pt States Last PCP Visit:?Date?07/23/2023 ???Foot Pain:?Nature:?numbness, pressure.?Location?B/L.?Duration:?several years.?Onset/Cause:?dpn.?Course:?worse.?Aggrevated:?standing, walking.?Treatments:?past hx of tx with dpm.?Quality/Severity?moderate.? * ROS:?General/Constitutional:?Nausea?denies, denies.?Vomiting?denies, denies.?Hunger Thirst?denies, denies.?Loss appetite?denies.?Chills?denies, denies.?Fatigue?denies, denies.?Fever?denies, denies.?Night Sweats?admits, denies.?Unexplained weight loss?denies, denies.?Unexplained weight gain?denies.?Ophthalmologic:?Blurred vision?denies.?Red eye?denies.?HEENTM:?Dentures?denies, denies.?Dizziness?admits, denies.?Glasses/contacts?admits, denies.?Retinopathy?denies, denies.?Blurred/double vision?denies, denies.?TMJ?denies, denies.?Discharge/drainage?denies, denies.?Implants?denies, denies.?Sore throat?denies.?Dental implants?denies.?Hard of hearing ?admits, denies.?Difficulty chewing/swallowing/speaking?denies, denies.?Nose bleeds?denies, denies.?Sore mouth?denies, denies.?Swollen glands?denies.?Respiratory:?On Oxygen?denies, denies.?Pneumonia/pleurisy?denies, denies.?Bronchitis?denies, denies.?Emphysema?denies, denies.?Coughing?denies, denies.?Cough blood?denies, denies.?Shortness of breath?denies, denies.?Wheezing?denies, denies.?Cardiovascular:?Pacemaker?denies, denies.?MVP?denies, denies.?WPW?denies, denies.?CHF?denies, denies.?Heart attack?denies, denies.?Septal defect?denies, denies.?Rapid beat?denies, denies.?Chest pain ?denies, denies.?Atrial Fib.?denies, denies.?Murmur/Palpitations?denies, denies.?Gastrointestinal:?Hemorrhoids?denies, denies.?Stomach/Abdominal pain?denies, denies.?Dark blood stool?denies, denies.?Irritable bowel ?denies, denies.?Constipation?denies, denies.?Diarrhea?denies, denies.?Vomiting?denies.?Hematology:?Swelling?denies, denies.?Clots?denies.?Varicose Veins?denies.?Bruising?denies, denies.?Bleeding problem?denies, denies.?Genitourinary:?Blood urine?denies, denies.?Frequent/Painfu/urination/bladder control?denies, denies.?Kidney stones?denies, denies.?Infection (UTI)?denies, denies.?Nephropathy?denies, denies.?sex trans dis (STD)?denies.?Prostate?denies.?Musculoskeletal:?Hammertoes?denies, denies.?Bunions?denies, denies.?Scoliosis/kyphosis?denies.?Back Pain?denies.?Muscle Cramps/ Resting?admits.?Muscle cramps / walking?denies, denies.?Generalized aches and pains?denies, denies.?Weakness?denies, denies.?Integ.:?Lambert?denies, denies.?Scars?denies, denies.?Corns/calluses?denies, denies.?Ingrown nails?denies, denies.?Painful nails?denies, denies.?Open Sores?denies.?Rashes?denies, denies.?Neurologic:?Difficulty sleeping?denies, denies.?Bipolar?denies.?Brain disorder?denies, denies.?Numbness?denies.?Balance trouble?denies, denies.?Confusion?denies, denies.?Fainting/blackouts?denies, denies.?Headache?denies.?Tingling?admits.?Tremors?denies, denies.? * Medical History:? * Surgical History:?No Surgica l History documented. * Hospitalization/Major Diagno stic Procedure:?No Hospitalization History. * Family History:?Mother: dece ased, diagnosed with Diabetic - NIDDM, Unspecified essential hypertension, Unspecified heart disease.?Father: , diagnosed with Diabetic - NIDDM.? * Social History:?Tobacco Use:?Tobacco Use/Smoking?Are you a:?nonsmoker ?Additional Findings: Tobacco Non-User?Aggressive non-smoker ?Tobacco use other than smoking?Are you an other tobacco user??No ???Drugs/Alcohol:?Drugs?Have you used drugs other than those for medical reasons in the past 12 months??No ?Alcohol Screen?Did you have a drink containing alcohol in the past year??No ?Points?0 ?Interpretation?Negative ???Miscellaneous:?no Caffeine. ?Children: yes, 5. ?Marital status: single, fiance. 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 * Medications:?Takingeliquis 5 mg Tablet Levothyroxine Sodium Lisinopril Simvastatin glipiZIDE metFORMIN HCl , Notes: w/ glipizideLabetalol HCl Extra Depth Diabetic Shoes with 3 Pair Custom heat-molded multi-density innersoles for 1 year Dx:Medication List reviewed and reconciled with the patientTaking eliquis 5 mg Tablet Taking Levothyroxine Sodium Taking Lisinopril Taking Simvastatin Taking glipiZIDE Taking metFORMIN HCl , Notes: w/ glipizideTaking Labetalol HCl Taking Extra Depth Diabetic Shoes with 3 Pair Custom heat-molded multi-density innersoles for 1 year Dx:Medication List reviewed and reconciled with the patient * Allergies:?N.K.D.A.yes[Aller lópez Verified] Objective: * Vitals:?Ht: 5ft 6in, Wt:195, BMI:31.47, Shoe size: 9, BS: did not test, Ht-cm: 167.64 cm, Wt-k.45 kg. * ???Past Orders: ???Lab:HEMOGLOBIN A1C (GLYCO HEMOGLOBIN) (Order Date - 08/23/2023) (Collection Date - 08/23/2023) ? Value Reference Range ?HEMOGLOBIN A1C % (HH) 7.0 * Examination: ???Ophthalmology Referral: ?DIABETES EYE EXAM?Neurological: ?SENSORY:? Neurological exam demonstrates, reduced vibration sensation, 5.07 monofilament test performed at plantar aspects of 5 varied sites per foot shows sensation, reduced , B/L.?TINEL'S COMPRESSION:?Negative tarsal tunnel, gilbert pedis, and medial calcaneal nerves B/L.?BABINSKI REFLEX:?absent.?Vascular: ?DP PULSES(B):? 0/4, B/L.?PT PULSES(B):? 0/4, B/L.?CAPILLARY FILL TIME:? 3 secs. per digit.?TROPHIC CONDITION-TEXTURE/ELASTICITY/TURGOR/HAIR GROWTH(B):?normal, B/L.?TEMPERTURE GRADIENT(C):?warm to cool, proximal to distal, B/L.?PIGMENTATION:?normal, B/L.?EDEMA(C):?no edema.?TELANGECTASIA:?absent.?VARICOSITIES:?absent.?Nails: ?NAILS are:? Elongated, overgrown, dystrophic, 1-5 B/L.?Dermatologic: ?SKIN FINDINGS:? Skin exam reveals Keratotic lesion(s) located at, Plantar, T6, SUB MTH (s), 1, 2, 3, 5, Heel(s), B/L.?General Examination: ?GENERAL APPEARANCE:?pleasant, alert, well nourished, well developed, well hydrated, with good attention to hygene/body habitus, and in no acute distress.?ORIENTED:?person,place, and time.?FOOT EXAM:?Neuroma Pain: ?PALPATION:?No interspace pain noted on palpation.?Orthopedic: ?MUSCLE STRENGTH:?5/5 all groups in a symmetrical fashion , B/L.?DIGITAL DEFORMITIES:? Digital contracture, PIPJ, 2-5 B/L, incompl- reducible with WB, or to push-up test, no over, nor underlapping.? Assessment: * Assessment: 1.?Tinea unguium - B35.1?2.? Type 2 diabetes mellitus with diabetic polyneuropathy - E11.42 (Primary)?3.?Other hammer toe(s) (acquired), right foot - M20.41?4.?Other hammer toe(s) (acquired), left foot - M20.42?5.?Unspecified atherosclerosis of inupiat arteries of extremities, bilateral legs - I70.203?6.?Xerosis cutis - L85.3? Plan: * Treatment: * Procedures:?Keratoma Treatment:?Parring or Cutting of Benign Hyperkeratotic Lesion(s)?30995 ( More than 4 Lesions ) - The Benign hyperkeratotic lesions, as described above were pared, and/or cut utilizing a sterile 15 blade, tissue nippers, and/or dremel.? * Procedure Codes:?23136 TRIM SKIN LESIONS, OVER 4, Modifiers: XS G0127 TRIMMING DYSTROPHIC NAILS ANY #, Modifiers: XS * Follow Up:?3 Months * Images: * Sign off status: Completed true * Provider:?Robbin Alva DPM Date:? 024 Generated for Pipe gaxiola/Allan/José Luis on:?04/11/2024 12:46 PM EST History and Physical Notes * HPI (History of Present Illness) Category Sub-Category Detail Notes Category Not es At Risk footcare Pt States Last PCP Visit: Date: 4 Foot Pain Aggrevated: standing, walking Onset/Cause: dpn [...] PIGMENTATION: normal, B/L Nails NAILS are: Elongated, overgrown, dystro phic, 1-5 B/L
--- OUTSIDE RECORDS SUMMARY | 2024-04-11 12:47 | XMS_ITS ---
Author Organization [facility] Address [address] [address] Care Team Providers Care Oil Field Rig Builder Name Role Phone John Mercado Primary Care Provider Unavailab Robbin Meyer Unavailable [phone] Piper Hein Unavailable [phone] Allergies No Known Allergies REASON FOR VISIT Toe Irritation, At Risk Footcare Medications Medication SIG (Take, Route, Frequency, Duration) Notes Start Date End Date Status glipiZIDE Active metFORMIN HCl w/ glipizide Act maya Lisinopril 5 MG 1 tablet Once a day Active Simvastatin Active Levothyroxine Sodium Active Extra Depth Diabetic Shoes with 3 Pair Custom heat-molded multi-density innersoles for 1 year Dx: A ctive Labetalol HCl Active eliquis 5 mg Active Social History Tobacco Use: Social History Observation [...] No Vital Signs Height 5ft 6in in 02/28/2024 Weight 182 lbs 02/28/2024 BMI 29.37 kg/m2 02/28/2024 Blood pressure systolic 125 mm Hg 02/28/20 24 Blood pressure diastolic 87 mm Hg 024 Procedures Procedure Date Ordered Date Performed Result Body Sit e 85247-RFVZHPD NAIL, 6 OR MORE 02/28/2024 N/A 43688-IWJE SKIN LESIONS, OVER 4 02/28/2024 N/A Encounters Encounter Location Date Provider Diagnosis [facility] [address] [address] 02/28/2024 Piper Hein Other hammer toe(s) (acquired), right foot M20.41 ; Other hammer toe(s) (acquired), left foot M20.42 ; Type 2 diabetes mellitus with diabetic polyneuropathy E11.42 ; Tinea unguium B35.1 and Unspecified atherosclerosis of algaaciq arteries of extremities, bilateral legs I70.203 Assessments Encounter Date Diagnosis (ICD Code) Assessment Notes Treatment Notes Treatment Clinical Notes Section Notes 02/28/2024 Other hammer toe(s) (acquired), right foot (ICD-10 - M20.41) Response to treatment,Impr ovement 02/28/2024 Other hammer toe(s) (acquired), left foot (ICD-10 - M20.42) Response to treatment,Impr ovement 02/28/2024 Type 2 diabetes mellitus with diabetic polyneuropathy (ICD-10 - E11.42) 02/28/2024 Tinea unguium (ICD-10 - B35.1) 02/28/2024 Unspecified atherosclerosis of algaaciq arteries of extremities, bilateral legs (ICD-10 - I70.203) Plan Of Treatment Pending Test Test Name Order Date [id number]-[id number] NAIL, 6 OR MORE 02/28/2024 50745-EHPF SKIN LESIONS, OVER 4 02/28/20 24 Next Appt Details Follow Up: 4 Months, Reason: Provider Name:Piper Lemonssarath dwayne, 06/26/2024 11:00:00 AM, [address] [place] [address], [place] [address], [place], [address], Procedure Notes * Category Sub-Category Detail Notes Debride Nail 6-10 Nail debridement Due to the cl inical pathology outlined in the exam findings, performance of this nail treatment is medically necessary as its management by an unskilled/untrained nonprofessional would put this patients foot and overall health at risk. Therefore, debridement to affected nail(s), as described in exam ( TA, T1, T2, T3, T4, T5, T6, T7, T8, T9 ), was performed exclusively by the physician of record to reduce/remove overall nail length, girth, thickness, subungual debris, and necrotic tissue, by manual and/or electrical means through the use of a nail nipper and/or dremel-type thread grinder tool, to a more viable healthy nail plate or bed tissue 6-10 nails in total. Silver nitrate was used for any petechial bleeding as necessary. Definitive antifungal treatment options, both pharmaceutical and surgical, have been reviewed and discussed with the patient. The patient solely prefers the use of intermittent/as needed professional debridement services for their nail condition and understands the need for additional periodic treatments to maintain effectiveness in symptomatic relief - 24373 Keratoma Treatment Parring or Cutting o f Benign Hyperkeratotic Lesion(s) (-57) More than 4 Lesions - Due to the at risk nature of the patients medical condition as documented in the exam findings, performance of this keratoderma treatment is medically necessary as its management by an unskilled/untrained nonprofessional would put this patients foot and overall health at risk. Therefore, the benign hyperkeratotic lesions, ( 6 ) in total, locations as stated and described in the exam (sub 5th and 1st metatarsal heads, plantar heels B/L), were pared, and/or cut utilizing a sterile 15 blade, tissue nippers, and/or power dremel instrumentation by the physician of record - 41935 Progress Notes * Beulah QUIÑONEZ CDOB:1950 (73 yo M)Acc No.[id number]:02/28/2024 Progress Note Patient:?Beulah QUIÑONEZ C Provider:?Piper Hein DPM :1950???Age:73 Y???Sex:Male Gino e:02/28/2024 Address:[address] [place] [address] [address], [address] [phone] Pcp:John Mercado Subjective: * Chief Complaints: * ???Toe IrritationAt Risk Keisha tcare * HPI: ???At Risk footcare:?Pt States Last PCP Visit:?Date?02/24/2024 ???Toe pain:?Treatments:?Rx shoes .? * ROS:?General/Constitutional:?Nausea?denies.?Vomiting?denies.?Hunger Thirst?denies.?Loss appetite?denies.?Chills?denies.?Fatigue?denies.?Fever?denies.?Night Sweats?denies.?Unexplained weight loss?denies.?Unexplained weight gain?denies.?HEENTM:?Dentures?denies.?Dizziness?denies.?Glasses/contacts?admits.?Retinopathy?de nies.?Blurred/double vision?denies.?TMJ?denies.?Discharge/drainage?denies.?Implants?denies.?Sore throat?denies.?Dental implants?denies.?Hard of hearing ?denies.?Difficulty chewing/swallowing/speaking?denies.?Nose bleeds?denies.?Sore mouth?denies.?Respiratory:?On Oxygen?denies.?Pneumonia/pleurisy?denies.?Bronchitis?denies.?Emphysema?denies.?C oughing?denies.?Cough blood?denies.?Shortness of breath?denies.?Wheezing?denies.?Cardiovascular:?Pacemaker?denies.?MVP?denies.?WPW?denies.?CHF?denies.?Heart attack?denies.?Septal defect?denies.?Rapid beat?denies.?Chest pain ?denies.?Atrial Fib.?denies.?Murmur/Palpitations?denies.?Gastrointestinal:?Hemorrhoids?denies.?Stomach/Abdominal pain?denies.?Dark blood stool?denies.?Irritable bowel ?denies.?Constipation?denies.?Diarrhea?denies.?Hematology:?Swelling?denies.?Clots?denies.?Varicose Veins?denies.?Bruising?denies.?Bleeding problem?denies.?Genitourinary:?Blood urine?denies.?Frequent/Painfu/urination/bladder control?denies.?Kidney stones?denies.?Infection (UTI)?denies.?Nephropathy?denies.?sex trans dis (STD)?denies.?Prostate?denies.?Musculoskeletal:?Hammertoes?denies.?Bunions?denies.?Back Pain?denies.?Muscle Cramps/ Resting?denies.?Muscle cramps / walking?denies.?Generalized aches and pains?denies.?Weakness?denies.?Integ.:?Lambert?denies.?Scars?denies.?Corns/calluses?denies.?Ingrown nails?denies.?Painful nails?denies.?Open Sores?denies.?Rashes?denies.?Neurologic:?Difficulty sleeping?denies.?Brain disorder?denies.?Numbness?admits.?Balance trouble?denies.?Confusion?denies.?Fainting/blackouts?denies.?Tingling?admits.?Tr emors?denies.? * Medical History:? * Surgical History:?No Surgica [...] alcohol in the past year??No ?Points?0 ?Interpretation?Negative ???Miscellaneous:?Caffeine: no. ?Children: yes, 5. ?Marital status: single, fiance. ?Occupation: [employer]. * Medications:?TakingExtra Dep th Diabetic Shoes with 3 Pair Custom heat-molded multi-density innersoles for 1 year Dx: eliquis 5 mg Tablet Levothyroxine Sodium Lisinopril 5 MG Tablet 1 tablet Once a day Simvastatin glipiZIDE metFORMIN HCl , Notes to Pharmacist: w/ glipizideLabetalol HCl Medication List reviewed and reconciled with the patientTaking Extra Depth Diabetic Shoes with 3 Pair Custom heat-molded multi-density innersoles for 1 year Dx: Taking eliquis 5 mg Tablet Taking Levothyroxine Sodium Taking Lisinopril 5 MG Tablet 1 tablet Once a day Taking Simvastatin Taking glipiZIDE Taking metFORMIN HCl , Notes to Pharmacist: w/ glipizideTaking Labetalol HCl Medication List reviewed and reconciled with the patient * Allergies:?N.K.D.A.yes[Buddy dawn Verified] Objective: * Vitals:?Ht: 5ft 6in, Wt:182, BMI:29.37, Shoe size: 9, BP:125/87mm Hg, BS: 160, Ht-cm: 167.64 cm, Wt-k.55 kg. * ???Past Orders: ???Lab:HEMOGLOBIN A1C (GLYCO HEMOGLOBIN) (Order Date - 08/23/2023) (Collection Date & Time - 08/23/2023 09:43 AM) ? Value Reference Range ?HEMOGLOBIN A1C % (HH) 7.0 * Examination: ???General Examination: ?GENERAL APPEARANCE:?Reveals a pleasant, alert, well nourished, well- developed, well hydrated individual, who demonstrates proper attention to hygiene/body habitus, and is in no acute distress, Pt serves as own historian for office visit today.?ORIENTED:?person, place, and time.?FOOT EXAM:?Neurological: ?SENSORY:? Neurological exam demonstrates, reduced light touch sensation, reduced sharp/dull pin prick discrimination , B/L, 5.07 monofilament test performed at plantar aspects of 5 varied sites per foot shows sensation, reduced , B/L.?Nails: ?NAILS are:?Elongated, overgrown, dystrophic, lytic, greater than 3mm thick, discolored and friable with crumbly malodorous subungual debris, TA, T1, T2, T3, T4, T5, T6, T7, T8, T9.?Vascular: ?DP PULSES(B):?1/4, B/L.?PT PULSES(B):?0/4, B/L.?CAPILLARY FILL TIME:? 3 secs. per digit.?TROPHIC CONDITION-TEXTURE/ELASTICITY/TURGOR/HAIR GROWTH(B):?normal, B/L.?TEMPERTURE GRADIENT(C):?warm to cool, proximal to distal, B/L.?PIGMENTATION:?normal, B/L.?EDEMA(C):?no edema.?TELANGECTASIA:?absent.?VARICOSITIES:?absent.?Orthopedic: ?MUSCLE STRENGTH:?5/5 all groups in a symmetrical fashion, B/L.?FOOTWEAR:?good condition, exhibit proper fit and accommodation for pedal deformities. OT were inspected and noted to be worn, but in good condition giving proper support at the present time.?Dermatologic: ?SKIN FINDINGS:?Skin exam reveals Keratotic lesion(s) located at sub 5th and 1st metatarsal heads, plantar heels B/L.?Ophthalmology Referral: ?DIABETES EYE EXAM? Assessment: * Assessment: 1.?Other hammer toe(s) (acqu ired), right foot - M20.41???Specify :Chronic problem, Stable (1=3,2=4)???Notes :Response to treatment,Improvement???2.?Other hammer toe(s) (acquired), left foot - M20.42???Specify :Chronic problem, Stable (1=3,2=4)???Notes :Response to treatment,Improvement???3.?Type 2 diabetes mellitus with diabetic polyneuropathy - E11.42 (Primary)???4.?Tinea unguium - B35.1???5.?Unspecified atherosclerosis of algaaciq arteries of extremities, bilateral legs - I70.203??? Plan: * Treatment: * Procedures:?Debride Nail 6-10:?Nail debridement?Due to the clinical pathology outlined in the exam findings, performance of this nail treatment is medically necessary as its management by an unskilled/untrained nonprofessional would put this patients foot and overall health at risk. Therefore, debridement to affected nail(s), as described in exam ( TA, T1, T2, T3, T4, T5, T6, T7, T8, T9 ), was performed exclusively by the physician of record to reduce/remove overall nail length, girth, thickness, subungual debris, and necrotic tissue, by manual and/or electrical means through the use of a nail nipper and/or dremel-type thread grinder tool, to a more viable healthy nail plate or bed tissue 6- 10 nails in total. Silver nitrate was used for any petechial bleeding as necessary. Definitive antifungal treatment options, both pharmaceutical and surgical, have been reviewed and discussed with the patient. The patient solely prefers the use of intermittent/as needed professional debridement services for their nail condition and understands the need for additional periodic treatments to maintain effectiveness in symptomatic relief - 39122.?Keratoma Treatment:?Parring or Cutting of Benign Hyperkeratotic Lesion(s)?(-57) More than 4 Lesions - Due to the at risk nature of the patients medical condition as documented in the exam findings, performance of this keratoderma treatment is medically necessary as its management by an unskilled/untrained nonprofessional would put this patients foot and overall health at risk. Therefore, the benign hyperkeratotic lesions, ( 6 ) in total, locations as stated and described in the exam (sub 5th and 1st metatarsal heads, plantar heels B/L), were pared, and/or cut utilizing a sterile 15 blade, tissue nippers, and/or power dremel instrumentation by the physician of record - 47212.? * Procedure Codes:?68308 DEBRI DE NAIL, 6 OR MORE, Modifiers: XS 54826 TRIM SKIN LESIONS, OVER 4, Modifiers: XS * Preventive Medicine:? ??Counseling:?Discussion:?-13: Office or other outpatient visit for the evaluation and management of an established patient, which required a medically appropriate history and/or examination and LOW level of DECISION MAKING for: 1 STABLE ACUTE UNCOMPLICATED PROBLEM, 2 OR MORE MINOR PROBLEMS, OR 1 STABLE CHRONIC PROBLEM, THAT POSE(S) A LOW RISK FOR MORBIDITY/MORTALITY. The visit on the day of the encounter encompassed interpreting the data and educating the patient as to the nature of their condition, treatment options available according to their individual PMH, meds, allergies, and overall health/living conditions, as well as any potential risks or complications that may occur from a failure to adhere to, and participate in, the recommended course of therapy. The discussion included a complete verbal, and/or written explanation of the examination results, any x-rays taken, the proposed diagnosis, and outline of the treatment plan. A schedule for future care needs was also explained. The patient verbalized an understanding of the instructions at this time and agreed to be an active participant in their treatment. If the patient should think of any questions or concerns after the visit, I have encouraged the patient to call the office.?Shoe Gear Counseling:?A thorough inspection of the patients Rxed shoegear and inserts was performed and findings communicated. We reviewed the many important medical advantages for adhering to regularly wearing these shoe and insert accomidative devices daily as well as reviewed the fact that a failure in accepting these recommedations may be deleterious, unable to prevent, and disadvantagely result in, many pedal complications such as skin irritation, skin ulceration, infection, and even loss of toe/foot/leg/or even their life. Time was also spent reviewing the proper footcare techniques including daily skin moisturization, daily foot inspection for any interruption in skin integrity, open lesions, or sign of infection such as redness/malodor/drainage/swelling as well as daily shoe inspection for the presence of internal foreign bodies and shoe as well as insert wear. Patient questions re: shoes, inserts, and self foot inspections were answered to their satisfaction as the patient verbally confirmed a full understanding of the above information.? * Follow Up:?4 Months * Images: * Sign off status: Completed true * Provider:Fly Hein DPM Date:?1 04/30/2023 Generated for Pipe gaxiola/Allan/José Luis on:?04/11/2024 12:46 PM EST History and Physical Notes * HPI (History of Present Illness) Category Sub-Category Detail Notes Category Not es Toe pain Treatments: Rx shoes At Risk footcare Pt States Last PCP Visit: Date: 4 Examination Category Sub-Category Detail Notes Category Not es Neurological SENSORY: Neurological exa m demonstrates, reduced light touch sensation, reduced sharp/dull pin prick discrimination , B/L, 5.07 monofilament test performed at plantar aspects of 5 varied sites per foot shows sensation, reduced , B/L Dermatologic SKIN FINDINGS: Skin exam reveal s Keratotic lesion(s) located at sub 5th and 1st metatarsal heads, plantar heels B/L Orthopedic FOOTWEAR: good condition, exhibit proper fit and accommodation for pedal deformities. OT were inspected and noted to be worn, but in good condition giving proper support at the present time MUSCLE STRENGTH: 5/5 all groups in a symmetrical fashion, B/L General Examination GENERAL APPEARANCE: Reveals a pleasant, alert, well nourished, well-developed, well hydrated individual, who demonstrates proper attention to hygiene/body habitus, and is in no acute distress, Pt serves as own historian for office visit today FOOT EXAM: Lower Extremity Neurological Exa m performed:: Yes Visual exam of foot performed:: Yes Date: 02/28/2024 Sensory and motor testing performed:: se nsations diminished ORIENTED: person, place, and t jameson Ophthalmology Referral DIABETES EYE EXAM Diabetic Retinopa thy Screening:: Yes Vascular DP PULSES (B): 1/4, B/L PT PULSES (B): 0/4, B/L CAPILLARY FILL TIME: 3 secs. per digit TEMPERTURE GRADIENT (C): warm to cool, p roximal to distal, B/L TROPHIC CONDITION-TEXTURE/ELASTICITY/TURGOR/HAIR GROWTH (B): normal, B/L EDEMA (C): no edema TELANGECTASIA: absent VARICOSITIES: absent PIGMENTATION: normal, B/L Nails NAILS are: Elongated, overg rown, dystrophic, lytic, greater than 3mm thick, discolored and friable with crumbly malodorous subungual debris, TA, T1, T2, T3, T4, T5, T6, T7, T8, T9
--- OUTSIDE RECORDS SUMMARY | 2024-04-11 12:47 | XMS_ITS ---
Author Organization [facility] Address [address] [place] [address] Care Team Providers Care Clearing Tub Worker Name Role Phone John Mercado Primary Care Provider Unavailab Robbin Meyer Unavailable [phone] REASON FOR VISIT same day 11/21 Encounters Encounter Location Date Provider Diagnosis [facility] [address] [place] [address] 11/22/2023 Robbin Alva Plan Of Treatment Next Appt Details Provider Name:Piper Vaca dwayne, 06/26/2024 11:00:00 AM, [address] [facility], [address], [place], [address], Progress Notes * Beulah QUIÑONEZ CDOB:1950 (73 yo M)Acc No.[id number]:11/22/2023 Patient:?Beulah Quiñonez :1950???Age:73 Y???Sex:Male Address:[address] [place] [address] [address] [place], [address] * true * Date:? Generated for Printi ng/Gustavog/eTransmitting on:?04/11/2024 12:46 PM EST
--- OUTSIDE RECORDS SUMMARY | 2024-04-11 12:47 | XMS_ITS | Patient Health Record ---
Author Organization [facility] [place] Address [address] [place] [address] Care Team Providers Care Director Industrial Name Role Phone John Mercado Primary Care Provider Unavailab Robbin Meyer Unavailable [phone] Piper Hein Unavailable [phone] Allergies No Known Allergies Results Component Value Reference Range Notes HEMOGLOBIN A1C (GLYCOHEMOGLO BIN) Reviewed date:08/23/2023 09:43:45 AM Interpretation: Performing Lab: Notes/Report: HEMOGLOBIN A1C % (HH) 7.0 Reason For Referral No Information Medications Medication SIG (Take, Route, Frequency, Duration) Notes Start Date End Date Status Extra Depth Diabetic Shoes with 3 Pair Custom heat-molded multi-density innersoles for 1 year Dx: A ctive Labetalol HCl Active glipiZIDE Active metFORMIN HCl w/ glipizide Act maya Lisinopril 5 MG 1 tablet Once a day Active Simvastatin Active eliquis 5 mg Active Levothyroxine Sodium Active Social History Tobacco Use: Social History [...] Are you an other tobacco user? No Problems Problem Type SNOMED Code ICD Code Onset Dates Problem Status W/U Status Risk Notes Problem Bilateral atherosclerosis of arteries of lower limbs (61237425368926410 ) Unspecified atherosclerosis of [place] arteries of extremities, bilateral legs (I70.203) Active confirmed Problem Polyneuropathy due to type 2 diabetes mellitus (991472357) Type 2 diabetes mellitus with diabetic polyneuropathy (E11.42) Active confirmed Vital Signs Blood pressure diastolic 87 mm Hg 02/28/2024 Height 5ft 6in in 02/28/2024 Blood pressure systolic 125 mm Hg 02/28/2024 Weight 182 lbs 02/28/2024 BMI 29.37 kg/m2 02/28/2024 Procedures Procedure Date Ordered Date Performed Result Body Sit e 45680-Ijgf. Subungual Hematoma 10/04/2023 N/A 07707-JQBCZFX NAIL, 6 OR MORE 02/28/2024 N/A 11184-UEKT SKIN LESIONS, OVER 4 02/28/2024 N/A S2278-RLJIWPHI DYSTROPHIC NAILS ANY # 08/23/2023 N/A 19787-ZUMC SKIN LESIONS, OVER 4 08/23/2023 N/A Encounters Encounter Location Date Provider Diagnosis [address] [address] 08/23/2023 Robbin Alva Type 2 diabetes mellitus with diabetic polyneuropathy E11.42 ; Tinea unguium B35.1 ; Other hammer toe(s) (acquired), right foot M20.41 ; Other hammer toe(s) (acquired), left foot M20.42 ; Unspecified atherosclerosis of [place] arteries of extremities, bilateral legs I70.203 and Xerosis cutis L85.[address] [address] 10/04/2023 Robbin Alva Tinea unguium B35.1 ; Type 2 diabetes mellitus with diabetic polyneuropathy E11.42 ; Other hammer toe(s) (acquired), right foot M20.41 ; Other hammer toe(s) (acquired), left foot M20.42 ; Unspecified atherosclerosis of [place] arteries of extremities, bilateral legs I70.203 ; Xerosis cutis L85.3 and Subungual hematoma of toenail of left foot, initial encounter S90.222A [address] [address] 11/25/2023 Robbin Alva Type 2 diabetes mellitus with diabetic polyneuropathy E11.42 ; Tinea unguium B35.1 ; Other hammer toe(s) (acquired), right foot M20.41 ; Other hammer toe(s) (acquired), left foot M20.42 ; Unspecified atherosclerosis of [place] arteries of extremities, bilateral legs I70.203 and Xerosis cutis L85.[address] [address] 02/28/2024 Piper Hein Other hammer toe(s) (acquired), right foot M20.41 ; Other hammer toe(s) (acquired), left foot M20.42 ; Type 2 diabetes mellitus with diabetic polyneuropathy E11.42 ; Tinea unguium B35.1 and Unspecified atherosclerosis of [place] arteries of extremities, bilateral legs I70.[address] [address] 08/23/[address] [address] 09/27/[address] [address] 09/30/[address] [address] 11/22/2023 [facility] Assessments Encounter Date Diagnosis (ICD Code) Assessment Notes Treatment Notes Treatment Clinical Notes Section Notes 08/23/2023 Tinea unguium (ICD-10 - B35.1) 08/23/2023 Type 2 diabetes mellitus with diabetic polyneuropathy (ICD-10 - E11.42) Patient Educated with: DIABETIC FOOT CARE INSTRUCTIONS. pdf (DIABETIC FOOT CARE INSTRUCTIONS. pdf) 10/04/2023 Tinea unguium (ICD-10 - B35.1) 10/04/2023 Type 2 diabetes mellitus with diabetic polyneuropathy (ICD-10 - E11.42) 11/25/2023 Tinea unguium (ICD-10 - B35.1) 11/25/2023 Type 2 diabetes mellitus with diabetic polyneuropathy (ICD-10 - E11.42) Patient Educated with: DIABETIC FOOT CARE INSTRUCTIONS. pdf (DIABETIC FOOT CARE INSTRUCTIONS. pdf) 02/28/2024 Other hammer toe(s) (acquired), right foot (ICD-10 - M20.41) Response to treatment,Impr ovement 02/28/2024 Other hammer toe(s) (acquired), left foot (ICD-10 - M20.42) Response to treatment,Impr ovement 11/25/2023 Other hammer toe(s) (acquired), right foot (ICD-10 - M20.41) 10/04/2023 Other hammer toe(s) (acquired), right foot (ICD-10 - M20.41) 08/23/2023 Other hammer toe(s) (acquired), right foot (ICD-10 - M20.41) 08/23/2023 Other hammer toe(s) (acquired), left foot (ICD-10 - M20.42) 10/04/2023 Other hammer toe(s) (acquired), left foot (ICD-10 - M20.42) 11/25/2023 Other hammer toe(s) (acquired), left foot (ICD-10 - M20.42) 02/28/2024 Type 2 diabetes mellitus with diabetic polyneuropathy (ICD-10 - E11.42) 02/28/2024 Tinea unguium (ICD-10 - B35.1) 02/28/2024 Unspecified atherosclerosis of [place] arteries of extremities, bilateral legs (ICD-10 - I70.203) 11/25/2023 Unspecified atherosclerosis of [place] arteries of extremities, bilateral legs (ICD-10 - I70.203) 08/23/2023 Unspecified atherosclerosis of [place] arteries of extremities, bilateral legs (ICD-10 - I70.203) 10/04/2023 Unspecified atherosclerosis of [place] arteries of extremities, bilateral legs (ICD-10 - I70.203) 10/04/2023 Xerosis cutis (ICD-10 - L85.3) 08/23/2023 Xerosis cutis (ICD-10 - L85.3) 11/25/2023 Xerosis cutis (ICD-10 - L85.3) 10/04/2023 Subungual hematoma of toenail of left foot, initial encounter (ICD-10 - S90.222A) Plan Of Treatment Pending Test Test Name Order Date 01495-LMBHGBL NAIL, 6 OR MORE 02/28/2024 52257-ZNUY SKIN LESIONS, OVER 4 02/28/20 24 22443-MEXS SKIN LESIONS, OVER 4 08/23/19 24 80038-Alxz. Subungual Hematoma 4 C6571-AXLVJPNW DYSTROPHIC NAILS ANY # Next Appt Details Provider Name:Piper rice, 06/26/2024 11:00:00 AM, [address] [facility], [facility] [address], [place], [address], Insurance Providers Payer Name Payer Address Payer Phone Subscriber Number Group Number Insured Name Patient Relationship to Insured Coverage Start Date Coverage End Date [employer] [address] [address] [place] [address] [id number] Beulah Quiñonez Self - patient is the insured Medical (General) History Medical History History ICD Code Diabetes mellitus High blood pressure thyroid Measles Mumps Chicken pox Back,Hip,and Knee pain Cataracts Numbness
--- OUTSIDE RECORDS SUMMARY | 2024-04-11 12:47 | XMS_ITS | Clinical Summary ---
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 Name Role Phone Geoff Reyes MD Primary Care Provider [phone] Surgical History Surgery Date Site/Laterality Comments HAND SURGERY PROCEDURE: HISTORICAL HAND SURGERY; COMMENT: thumb injury COLONOSCOPY PROCEDURE: HISTORICAL COLONOSCOPY; COMMENT: 2011 CIRCUMCISION, PRIMARY PROCEDURE: HISTORICAL CIRCUMCISION COLONOSCOPY 01/23/16 PROCEDURE: HISTORICAL COLONOSCOPY Medical History Medical History Date Comments Hypothyroid DX:Hypothyroid Essential hypertension, benign D X:Essential hypertension, benign Tricuspid regurgitation 06/13/2014 DX:Tricu spid regurgitation; COMMENT: Mild/ echo 2010 EF 64% 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 DX:Paget's bone disease CAD (coronary artery disease) 06/13/2014 DX :CAD (coronary artery disease) Paroxysmal atrial fibrillati on (CMS/HCC) 06/13/2014 DX:Paroxysmal atrial fibrill ation (HCC) Hyperlipemia DX:Hyperlipemia Erectile dysfunction 11/30/2011 DX:Erectile dysfunction DM (diabetes mellitus), type 2 with peripheral vascular complications (CMS/HCC) DX:DM (diabetes mellitus), t ype 2 with peripheral vascular complications (HCC) Diabetes mellitus with ophth almic manifestations, controlled (CMS/HCC) 05/06/2014 DX:Diabetes melli tus with ophthalmic manifestations, controlled ([facility]) Family History Medical History Relation Name Comments Diabetes Mother Heart attack Mother Stroke Mother Relation Name Status Comments Mother Social History Tobacco Use Types Packs/Day Years Used Date Smoking Tobacco: Never Smokeless Tobacco: Never Alcohol Use Standard Drinks/Week Comments No 0 (1 standard drink = 0.6 oz pur e alcohol) Sex and Gender Information Value Date Recorded Sex Assigned at Not on file Gender Identity Not on file Sexual Orientation Not on file Obstetrics History Last Filed Vital Signs Vital Sign Reading Time Taken Comments Blood Pressure 122/70 04/11/2023 11:08 AM EST Sitting L Arm Pulse 78 04/11/2023 11:08 AM EST Temperature - - Respiratory Rate - - Oxygen Saturation - - Inhaled Oxygen Concentration - - Weight 86.1 kg (189 lb 12.8 oz) 04/11/2023 11:08 AM EST Height 167.6 cm (5' 6 ) 04/11/2023 11:0 8 AM EST Body Mass Index 30.63 04/11/2023 11:08 AM EST Plan of Treatment Health Maintenance Due Date Last Done Comments Diabetes: Annual GFR (Glomerular Filtration Rate) 1950 Diabetes: Annual Foot Exam 1958 Diabetes: Annual Retina Eye Exam 1958 Zoster Vaccines (1 of 2) 1998 Abdominal Aortic Aneurysm (AAA) Screen 02/20/2022 Cholesterol Screening (Lipid Panel) 02/20/2022 Colorectal Cancer Screening: Stool Based Tests (FOBT/FIT) 02/20/2022 Depression Screening 02/20/2022 Falls Risk Assessment 02/20/2022 Hepatitis C Screening 02/20/2022 Social Influencers of Health Screening 02/20/2022 Hypertension/CHF/CAD Annual BMP Blood Test 02/21/2022 Diabetes: Annual Urine Albumin-Creatinine Ratio (uACR) 02/27/2022 Diabetes: Blood Sugar Control Test (HGBA1C) 02/27/2022 COVID-19 Vaccine ( season) 2023 06/28/2020, 05/30/2020 Influenza Vaccine (#1) 2023 , 03/04/2015, 12/17/2013, Additional history exists RSV Immunization Patients 60+ Years Old (1 - 1-dose 75+ series) 11/17/2023 DTaP,Tdap,and Td Vaccines (3 - Td or Tdap) 08/14/2029 08/15/2019, 03/31/2012 Pneumococcal Vaccine: 65+ Years Completed 01/04/2020, 11/01/2018, 11/08/2017, Additional history exists HIB Vaccines Aged Out No longer eligi ble based on patient's age to complete this topic HPV Vaccines Aged Out No longer eligi ble based on patient's age to complete this topic Hepatitis A Vaccines Aged Out No long er eligible based on patient's age to complete this topic Hepatitis B Vaccines Aged Out No long er eligible based on patient's age to complete this topic IPV Vaccines Aged Out No longer eligi ble based on patient's age to complete this topic MMR Vaccines Aged Out No longer eligi ble based on patient's age to complete this topic Meningococcal ACWY Vaccine Aged Out N o longer eligible based on patient's age to complete this topic RSV Immunization Patients Under 20 months Aged Out No longer eligible based on patient's age to complete this topic Varicella Vaccines Aged Out No longer eligible based on patient's age to complete this topic Care Teams Asphalt Paving Machine Operator Relationship Specialty Start Date End Date Geoff Reyes MD [facility] [address] [place] [address] [address] [place] [address] PCP - General 04/26/22
== END 2024-04-11 12:01 | disposition home or self-care (01) ==
PROVIDERS: PCP Physician Assistant; Visit Provider Physician Assistant
DX: H61.23 Impacted cerumen, bilateral (principal)

== ENCOUNTER → 2024-04-11 10:41 | Outpatient (BNVA) | payer MEDICARE, SELFPAY | PROVIDERS: PCP Physician Assistant; Visit Provider Physician Assistant | DX: H61.23 Impacted cerumen, bilateral (principal) | CPT/HCPCS: 69210; 96127; 99212 ==

== ENCOUNTER 2024-09-03 10:04 | Outpatient (AMB) | payer MEDICARE, SELFPAY ==
--- NOTE | 2024-09-03 10:21 | MHC.PC.OV ---
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 Marketing Required: No Accompanied by: Self / Same As Patient Allergies No Known Drug Allergies Allergy (Mild, Verified 09/03/24 10:50) Unknown Medication List - Last Reconciled 09/03/24 by John Mercado PA-C apixaban (Eliquis) 5 mg PO BID 30 days azelastine (Astepro Allergy) 1 spray intranasal DAILY 30 days cetirizine 10 mg PO DAILY 30 days cyanocobalamin (vitamin B-12) ER 2,000 mcg PO DAILY empagliflozin (Jardiance) 10 mg PO DAILY 30 days glipizide 20 mg (2 x 10 mg) PO BID 30 days labetalol 200 mg PO BID levothyroxine 200 mcg PO DAILY lisinopril 10 mg PO DAILY 90 days simvastatin 20 mg PO DAILY tirzepatide (Mounjaro) 5 mg subcut QWEEK Tobacco use date assessed: 04/11/24 Fall risk assessment: No Falls in past year Last assessed Fall Risk: 09/03/24 Dental Screening Dental Screen Date: 04/11/24 HPI PHYSICAL HPI Details Patient is a 73-year-old male here today for routine annual physical. Patient has a past medical history significant for type 2 diabetes, hypertension, hyperlipidemia, AFib. AFib: Continues to follow cardiology ( [facility]) , continues on anticoagulation with any sides of overt bleeding, He otherwise denies any palpitations, shortness of breath on exertion, headaches or chest pain. .. Type 2 diabetes : Patient's type 2 diabetes well controlled A1c today at 6.7. He is trying to be more physically active at the gym. .. Hypothyroidism: He is followed by breakfast attendant at [facility]. His most recent TSH stable. Continues to take high dose levothyroxine. Vaccines:: Up-to-date with COVID vaccine, flu vaccine, shingles vaccine and tetanus vaccine Colorectal cancer screening: Up-to-date with colonoscopy done in 2021 at [facility] Laboratory Tests 08/09/23 02/23/24 02/24/24 13:49 10:19 10:11 Creatinine 0.75 Fasting Glucose 143 H Hgb A1c (Clinic) 7.0 H 6.6 H 09/03/24 10:19 Creatinine Fasting Glucose Hgb A1c (Clinic) 6.7 H PFSH Medical History Impacted cerumen, left ear Otitis media Herpes zoster Encounter to establish care HX: anticoagulation Paroxysmal A-fib Hypothyroidism Type II diabetes mellitus Essential hypertension Allergic sinusitis Hyperlipidemia Surgical History History of colonoscopy H/O thumb surgery Family History Father No problems noted. Mother Diabetes Social History Housing: Apartment Alcohol intake: former Patient Tobacco Use Status: Never used Tobacco e-Cigarette/Vaping Use: Never Used Second Hand Smoke Exposure: Yes service: Yes Current occupational status: employed Current occupational exposures/hazards: No Cognitive needs: No Hearing needs: No Vision needs: Yes (Glasses) Questionnaire PHQ-9 Over the last 2 weeks, how often have you been bothered by any of the following problems? 1. Little interest or pleasure in doing things: not at all 2. Feeling down, depressed, or hopeless: not at all 3. Trouble falling or staying asleep, or sleeping too much: not at all 4. Feeling tired or having little energy: not at all 5. Poor appetite or overeating: not at all 6. Feeling bad about yourself - or that you are a failure or have let yourself or your family down: not at all 7. Trouble concentrating on things, such as reading the newspaper or watching television: not at all 8. Moving or speaking so slowly that other people could have noticed. Or the opposite - being so fidgety or restless that you have been moving around a lot more than usual: not at all 9. Thoughts that you would be better off or of hurting yourself in some way: not at all Total score: 0 Depression Screening Interpretation: Negative Depression Screening Done: Yes 12897 - PHQ-9 Billing: Yes Source: Developed by Drs. Trae Simeon, Saida Campoverde, Chiki Hummel and colleagues, with an educational yeyo from [employer]. Thrive Questionnaire Date Thrive assessed: 09/03/24 I am a: Patient What is your living situation today?: I have a steady place to live Within the past 12 months, did the food you bought not last and you didn't have the money to get more?: Never true Within the past 12 months, did you worry whether your food would run out before you got money to buy more?: Never true Do you have trouble paying for medicines?: No Do you have trouble getting transportation to medical appointments?: No Do you have trouble paying your heating and electricity bill?: No Do you have trouble taking care of your child, family member or friend?: No Do you have trouble with day-to-day activities such as bathing, preparing meals, shopping, managing finances, etc.?: No Are you currently unemployed and looking for a job?: No Are you interested in more education?: No Please select the resources that you would like help with: Paying for medicine Currently or been in a relationship where the following occur: I choose not to answer THRIVE Score: 0 AUDIT C Alcohol Use Questionnaire (AUDIT-C) 1. How often do you have a drink containing alcohol?: Never 3. How often do you have six or more drinks on one occasion?: Never Total Score: 0 MICHELE-7 AMB Questionnaire MICHELE-7 Date MICHELE - 7 assessed: 09/03/24 Feeling nervous, anxious, or on edge: 0 = Not at all Not being able to stop or control worryin = Not at all Worrying too much about different things: 0 = Not at all Trouble relaxin = Not at all Being so restless that it is hard to sit still: 0 = Not at all Becoming easily annoyed or irritable: 0 = Not at all Feeling afraid as if something awful might happen: 0 = Not at all Total MICHELE-7 score (0-4 normal; 5-9 mild; 10-14 moderate; 15-21 severe): 0 Source: Developed by Drs. Trae Simeon, Saida Campoverde, Chiki Hummel and colleagues, with an educational yeyo from [employer]. MICHELE-7 Assessment Billing MICHELE-7 Assessment Tool: MICHELE-7 Assessment 29806 Review of Systems Const Denies body aches, Denies chills, Denies excessive sweating, Denies fatigue, Denies fever(s) and Denies headache(s) Eyes Denies blurry vision ENT Denies dysphagia, Denies vertigo, Denies dizziness, Denies headache(s), Denies hearing loss and Denies tinnitus Card Denies chest pain, Denies chest pain with activity, Denies syncope, Denies irregular heart rhythm and Denies dyspnea Resp Denies chest congestion, Denies cough, Denies hemoptysis, Denies dyspnea and Denies wheezing GI Denies abdominal pain, Denies melena, Denies hematochezia, Denies coffee ground emesis, Denies dysphagia, Denies diarrhea, Denies nausea and Denies vomiting Denies difficulty urinating, Denies dysuria, Denies urinary frequency, Denies urinary hesitancy and Denies urinary urgency Musc Denies arthralgias, Denies limited range of motion, Denies muscle cramps and Denies muscle weakness Skin/Breast Denies rash and Denies skin ulcer Neuro Denies Abnormal speech present, Denies confusion, Denies vertigo, Denies dizziness, Denies syncope, Denies headache(s), Denies memory loss and Denies seizure-like activity Psych Denies anxiety, Denies confusion, Denies depression, Denies memory loss, Denies panic attacks and Denies paranoia Endo Denies excessive sweating, Denies fatigue, Denies flushing, Denies polydipsia and Denies polyuria Aller/Immun Denies wheezing Physical exam (Primary Care) Vital Signs: Last Vital Signs Temp 97.0 F 09/03/24 10:22 Pulse 78 09/03/24 10:22 BP 110/58 L 09/03/24 10:22 Pulse Ox 97 09/03/24 10:22 Oxygen Delivery Method Room Air 09/03/24 10:22 BMI result Body Mass Index 28.7 Tobacco/Smoking Status: Tobacco use Status Tobacco use date assessed 04/11/24 09/03/24 10:27 Patient Tobacco Use Status Never used Tobacco 09/03/24 10:27 e-Cigarette/Vaping Use Never Used 09/03/24 10:27 PHQ-9: PHQ-9 Score PHQ-9: Total score 0 09/03/24 10:53 Depression Screening Interpretation: Negative Thrive Assessment: Date of Thrive Assessment Date Thrive assessed 09/03/24 09/03/24 10:27 Currently or been in a relationship where the following occur: I choose not to answer Const General: cooperative, comfortable, no acute distress, alert and awake; No confusion Orientation/consciousness: oriented to person, oriented to place, patient oriented x3 and No confusion HENMT Head: Yes normocephalic Ears: external ears normal and TM's normal bilaterally Face and sinus: No sinus tenderness Mouth: Normal oral and palatal mucosa present and tongue normal Teeth and gingiva: dentition normal and gingiva normal Throat: Yes posterior oropharynx normal, Yes tonsils normal and Yes uvula midline Eyes Conjunctivae: conjunctivae normal Sclerae: sclerae normal Pupils: Equal, round and reactive pupils present EOM: EOMs intact bilaterally Direct Ophthalmoscopy: No no photophobia Neck Neck: Yes no lymphadenopathy, No tender and Yes no JVD Thyroid: Thyroid normal Carotids: no bruits Chest Chest palpation & inspection: no tenderness Resp Effort & Inspection: normal respiratory effort, no audible wheezes, not labored and no stridor Auscultation: no crackles, no rales, no rhonchi and no wheezes Cardio Jugular venous distension: no JVD Rate: regular rate, not bradycardic and not tachycardic Rhythm: regular rhythm Bruits: no carotid bruits Peripheral pulses: Peripheral pulses 2+ throughout GI Inspection: Yes normal to inspection, No abdominal wall ecchymosis and No visible herniation Palpation (GI): Soft to palpation, nontender, no guarding, not rigid and No hepatosplenomegaly present Auscultation: normoactive bowel sounds General: Yes no CVA tenderness Back/Spine/Pelvis Back: no CVA tenderness and No back tenderness Cervical Spine: cervical ROM normal Thoracic/Lumbar Spine: thoracic and lumbar spine normal to inspection, straight leg raise negative bilaterally, No thoraco-lumbar ROM limited and No lumbar spinal tenderness Skin Lesions: no lesions Rashes: no rashes Wounds: no wounds Neuro General: oriented to person, oriented to place, patient oriented x3, CN's II-XI intact bilaterally and No confusion Cranial nerves: Yes Equal, round and reactive pupils present and Yes Normal accommodation reflex present Cognition (Neuro): normal cognition Speech: No Abnormal speech present Gait exam (Neuro): Normal gait present Motor exam (neuro): 5/5 motor strength present throughout Extrem Right upper extremity: full ROM; no cyanosis Left upper extremity: full ROM; no cyanosis Right lower extremity: no edema Left lower extremity: no edema Psych Appearance: grossly normal Mental Status: mental status grossly normal Affect: normal affect Attitude: cooperative Thought process: Normal thought process present Results AMB Hemoglobin A1c AMB Hemoglobin A1c 6.7 % Last Edit by MARY Lora on 09/03/24 10:44 Results Reviewed Results Reviewed: Laboratory Last Values Hgb A1c (Clinic) 6.7 % (4.0-6.0) H 09/03/24 10:19 Coding Level of Care Code Est Pt Prev Care >65y(69293) Diagnoses Annual physical exam Z00.00 Type 2 diabetes mellitus with hyperglycemia, without long-term current use of insulin E11.65 Diabetes mellitus complication status: with hyperglycemia Diabetes mellitus terminal operations supervisor insulin use: without terminal operations supervisor use Essential hypertension I10 Mixed hyperlipidemia E78.2 Hyperlipidemia type: mixed hyperlipidemia Hypothyroidism, unspecified type E03.9 Hypothyroidism type: unspecified Paroxysmal A-fib I48.0 Additional Codes MICHELE-7 Assessment Billing - MICHELE-7 Assessment Tool: MICHELE-7 Assessment 45410 ([id number]) PHQ-9 - 97120 - PHQ-9 Billing: Yes ([id number]) Assessment & Plan Assessment & Plan (1) Annual physical exam: Code(s): Z00.00 - Encounter for general adult medical examination without abnormal findings Category: Medical Plan: As per HPI (2) Type II diabetes mellitus: Code(s): E11.9 - Type 2 diabetes mellitus without complications Category: Medical Qualifiers: Diabetes mellitus complication status: with hyperglycemia Diabetes mellitus terminal operations supervisor insulin use: without terminal operations supervisor use Qualified Code(s): E11.65 - Type 2 diabetes mellitus with hyperglycemia Plan: Patient's type 2 diabetes well controlled on current medication. Most recent A1c below 7 Continues on GLP 1, glipizide and Jardiance (3) Essential hypertension: Code(s): I10 - Essential (primary) hypertension Category: Medical Plan: Patient's blood pressure acceptable today in office. Will continue current dose of lisinopril 10 mg Goal blood pressures to be below 140/90 and above 100/60 (4) Hyperlipidemia: Code(s): E78.5 - Hyperlipidemia, unspecified Category: Medical Qualifiers: Hyperlipidemia type: mixed hyperlipidemia Qualified Code(s): E78.2 - Mixed hyperlipidemia Plan: Patient promises to get fasting labs done before next office visit. Goal LDL is to be below 100 due to his cardiovascular risk. (5) Hypothyroidism: Code(s): E03.9 - Hypothyroidism, unspecified Category: Medical Qualifiers: Hypothyroidism type: unspecified Qualified Code(s): E03.9 - Hypothyroidism, unspecified Plan: Patient continues to follow Endocrinology at [facility]. He continues on levothyroxine 200 mcg. Will continue to follow TSH to assure normal. (6) Paroxysmal A-fib: Code(s): I48.0 - Paroxysmal atrial fibrillation Category: Medical Plan: Patient is followed by [facility]iology. Continues on labetalol for rate control and Eliquis as his anticoagulation. He denies any overt signs of bleeding. Orders: Orders TSH reflex Free T4 09/03/24 E03.9 - Hypothyroidism, unspecified Complete Blood Count no Diff 09/03/24 E78.2 - Mixed hyperlipidemia Lipid Panel 09/03/24 E78.2 - Mixed hyperlipidemia Comprehensive [place]. Panel Fast 09/03/24 E78.2 - Mixed hyperlipidemia Prostate Specific Antigen Scr 09/03/24 E78.2 - Mixed hyperlipidemia, Z12.5 - Encounter for screening for malignant neoplasm of prostate AMB Hemoglobin A1c 09/03/24 E11.65 - Type 2 diabetes mellitus with hyperglycemia Medications: New blood-glucose,carriage feeder,cont (FreeStyle Edna 3 [place]) As directed 1 ea 0RF E11.65 - Type 2 diabetes mellitus with hyperglycemia Changed From labetalol 200 mg PO BID I48.0 - Paroxysmal atrial fibrillation To labetalol 200 mg PO BID 180 tabs 1RF 90 days I48.0 - Paroxysmal atrial fibrillation Patient Instructions: Goal: A1c to remain below 7.0, LDL to be below 100 Barriers: Adherence to physical activity and healthy eating habits
[2024-09-03 10:22] VITALS: BP 110/58; PULSE 78; TEMP 36.1; O2SAT 97; BMI 28.7
--- OUTSIDE RECORDS SUMMARY | 2024-09-03 11:09 | XMS_ITS | Patient Health Record ---
Author Organization [facility] Address [address] [place] [address] Care Team Providers Care Dispute Resolution Specialist Name Role Phone John Mercado Primary Care Provider Unavailab Robbin Meyer Unavailable [phone] Piper Hein Unavailable [phone] Allergies No Known Allergies Reason For Referral No Information Medications Medication [...] Bilateral atherosclerosis of arteries of lower limbs ([id number] ) Unspecified atherosclerosis of galena arteries of extremities, bilateral legs (I70.203) Active confirmed Problem Polyneuropathy due to type 2 diabetes mellitus ([id number]) Type 2 diabetes mellitus with diabetic polyneuropathy (E11.42) Active confirmed Vital Signs Blood pressure diastolic 87 mm Hg 02/28/2024 Height 5ft 6in in 02/28/2024 Blood pressure systolic 125 mm Hg 02/28/2024 Weight 182 lbs 02/28/2024 BMI 29.37 kg/m2 02/28/2024 Procedures Procedure Date Ordered Date Performed Result Body Sit e 27139-Qfmf. Subungual Hematoma 10/04/2023 N/A [id number] NAIL, 6 OR MORE 02/28/2024 N/A [id number] SKIN LESIONS, OVER 4 02/28/2024 N/A Encounters Encounter Location Date Provider Diagnosis [address] [address] 10/04/2023 Robbin Alva Tinea unguium B35.1 ; Type 2 diabetes mellitus with diabetic polyneuropathy E11.42 ; Other hammer toe(s) (acquired), right foot M20.41 ; Other hammer toe(s) (acquired), left foot M20.42 ; Unspecified atherosclerosis of galena arteries of extremities, bilateral legs I70.203 ; Xerosis cutis L85.3 and Subungual hematoma of toenail of left foot, initial encounter S90.222A [address] [address] 11/25/2023 Robbin Alva Type 2 diabetes mellitus with diabetic polyneuropathy E11.42 ; Tinea unguium B35.1 ; Other hammer toe(s) (acquired), right foot M20.41 ; Other hammer toe(s) (acquired), left foot M20.42 ; Unspecified atherosclerosis of galena arteries of extremities, bilateral legs I70.203 and Xerosis cutis L85.[address] [address] 02/28/2024 Piper Hein Other hammer toe(s) (acquired), right foot M20.41 ; Other hammer toe(s) (acquired), left foot M20.42 ; Type 2 diabetes mellitus with diabetic polyneuropathy E11.42 ; Tinea unguium B35.1 and Unspecified atherosclerosis of galena arteries of extremities, bilateral legs I70.[address] [address] 09/27/2023 [facility] [place] [address] [facility] [address] [place] [phone] 09/30/2023 [facility] [place] [address] [place] [address] 11/22/2023 [facility] [address] [address] 06/25/2024 Piper Hein Assessments Encounter Date Diagnosis (ICD Code) Assessment Notes Treatment Notes Treatment Clinical Notes Section Notes 10/04/2023 Tinea unguium (ICD-10 - B35.1) 10/04/2023 [...] - M20.41) 10/04/2023 Other hammer toe(s) (acquired), left foot (ICD-10 - M20.42) 11/25/2023 Other hammer toe(s) (acquired), left foot (ICD-10 - M20.42) 02/28/2024 Type 2 diabetes mellitus with diabetic polyneuropathy (ICD-10 - E11.42) 02/28/2024 Tinea unguium (ICD-10 - B35.1) 02/28/2024 Unspecified atherosclerosis of galena arteries of extremities, bilateral legs (ICD-10 - I70.203) 11/25/2023 Unspecified atherosclerosis of galena arteries of extremities, bilateral legs (ICD-10 - I70.203) 10/04/2023 Unspecified atherosclerosis of galena arteries of extremities, bilateral legs (ICD-10 - I70.203) 10/04/2023 Xerosis cutis (ICD-10 - L85.3) 11/25/2023 Xerosis cutis (ICD-10 - L85.3) 10/04/2023 Subungual hematoma of toenail of left foot, initial encounter (ICD-10 - S90.222A) Plan Of Treatment Pending Test Test Name Order Date [id number] NAIL, 6 OR MORE 02/28/2024 [id number] SKIN LESIONS, OVER 4 02/28/20 24 [id number] SKIN LESIONS, OVER 4 08/23/19 24 [id number]-Idsb. Subungual Hematoma 4 [id number] DYSTROPHIC NAILS ANY # Insurance Providers Payer Name Payer Address Payer Phone Subscriber Number Group Number Insured Name Patient Relationship to Insured Coverage Start Date Coverage End Date [employer] Claims [address] [address] [place] [address] [phone] [id number] Quiñonez, Sniter Self - patient is the insured Medical (General) History Medical History History ICD Code Diabetes mellitus High blood pressure thyroid Measles Mumps Chicken pox Back,Hip,and Knee pain Cataracts Numbness
== END 2024-09-03 11:00 | disposition home or self-care (01) ==
LOC: HO.HMCH 10:05
PROVIDERS: PCP Physician Assistant; Visit Provider Physician Assistant
DX: E11.65 Type 2 diabetes mellitus with hyperglycemia (principal)

== ENCOUNTER → 2024-09-03 10:04 | Outpatient (BNVA) | payer MEDICARE, SELFPAY | PROVIDERS: PCP Physician Assistant; Visit Provider Physician Assistant | DX: Z00.00 Encounter for general adult medical examination without abnormal findings (principal); E11.65 Type 2 diabetes mellitus with hyperglycemia; I10 Essential (primary) hypertension; E78.5 Hyperlipidemia, unspecified; E03.9 Hypothyroidism, unspecified; E78.2 Mixed hyperlipidemia; I48.0 Paroxysmal atrial fibrillation; Z79.01 Long term (current) use of anticoagulants | CPT/HCPCS: 83036; 96127; 99397 ==

== ENCOUNTER 2025-03-04 10:15 | Outpatient (AMB) | payer MEDICARE, SELFPAY ==
[2025-03-04 10:42] VITALS: BP 144/68; PULSE 83; O2SAT 97; BMI 28.0
--- NOTE | 2025-03-04 10:42 | MHC.PC.OV ---
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,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 ([employer] [place] 3 [place]) As directed cetirizine 10 mg PO DAILY 30 days cyanocobalamin (vitamin B-12) ER 2,000 mcg PO DAILY empagliflozin (Jardiance) 10 mg PO DAILY 30 days glipizide 20 mg (2 x 10 mg) PO BID 30 days labetalol 200 mg PO BID 90 days levothyroxine 200 mcg PO DAILY 30 days lisinopril 10 mg PO DAILY 90 days simvastatin 20 mg PO DAILY tirzepatide (Mounjaro) 5 mg subcut QWEEK Tobacco use date assessed: 03/04/25 Fall risk assessment: 1 Fall in past year Last assessed Fall Risk: 03/04/25 Dental Screening Dental Screen Date: 03/04/25 Did you have a dental visit in the last 12 months?: No Did you have a dental problem in the last 6 months where you did not have access to dental care?: No Was dental information given to patient?: Patient has dentist HPI 6 mo f/u HTN/ DMII HPI Details Patient is a 74-year-old male here today for a follow-up visit Patient has a past medical history significant for type 2 diabetes, hypertension, hyperlipidemia, AFib. Concern--> For the past one to two months, the patient has experienced new gastrointestinal symptoms, describing a significant amount of gas and pain in his chest area after consuming certain foods or drinks. This sensation was also triggered by exertion, such as walking up stairs quickly, and is relieved by belching. He has a history of reflux years ago which had resolved, and he reports prior use of Gas-X, which provided temporary relief but was not effective long-term. He also reports a constant runny nose for more than six months. This is often accompanied by nonstop sneezing that begins shortly after he starts eating any meal. He has tried Flonase without relief and is not currently on any allergy medication. AFib: Continues to follow cardiology ( [facility]) , continues on anticoagulation with any sides of overt bleeding, He otherwise denies any palpitations, shortness of breath on exertion, headaches or chest pain. .. Type 2 diabetes : Patient's type 2 diabetes well controlled A1c today at 6.5 from 6.7. He is trying to be more physically active at the gym. .. Hypothyroidism: He is followed by radiation therapist at [facility]. His most recent TSH stable. Continues to take high dose levothyroxine. [facility] Medical History Impacted cerumen, left ear Otitis media Herpes zoster Encounter to establish care HX: anticoagulation Paroxysmal A-fib Hypothyroidism Type II diabetes mellitus Essential hypertension Allergic sinusitis Hyperlipidemia Surgical History History of colonoscopy H/O thumb surgery Family History Father No problems noted. Mother Diabetes Social History Housing: Apartment Alcohol intake: former Patient Tobacco Use Status: Never used Tobacco e-Cigarette/Vaping Use: Never Used Second Hand Smoke Exposure: Yes service: Yes Current occupational status: employed Current occupational exposures/hazards: No Cognitive needs: No Hearing needs: No Vision needs: Yes (Glasses) Questionnaire PHQ-9 Over the last 2 weeks, how often have you been bothered by any of the following problems? 1. Little interest or pleasure in doing things: not at all 2. Feeling down, depressed, or hopeless: not at all 3. Trouble falling or staying asleep, or sleeping too much: not at all 4. Feeling tired or having little energy: not at all 5. Poor appetite or overeating: not at all 6. Feeling bad about yourself - or that you are a failure or have let yourself or your family down: not at all 7. Trouble concentrating on things, such as reading the newspaper or watching television: not at all 8. Moving or speaking so slowly that other people could have noticed. Or the opposite - being so fidgety or restless that you have been moving around a lot more than usual: not at all 9. Thoughts that you would be better off or of hurting yourself in some way: not at all Total score: 0 Depression Screening Interpretation: Negative Depression Screening Done: Yes 64047 - PHQ-9 Billing: Patient declined-do not bill Source: Developed by Drs. Trae Simeon, Saida Campoverde, Chiki Hummel and colleagues, with an educational yeyo from [employer]. Thrive Questionnaire Date Thrive assessed: 03/04/25 I am a: Patient What is your living situation today?: I have a steady place to live Within the past 12 months, did the food you bought not last and you didn't have the money to get more?: Never true Within the past 12 months, did you worry whether your food would run out before you got money to buy more?: Never true Do you have trouble paying for medicines?: No Do you have trouble getting transportation to medical appointments?: No Do you have trouble paying your heating and electricity bill?: No Do you have trouble taking care of your child, family member or friend?: No Do you have trouble with day-to-day activities such as bathing, preparing meals, shopping, managing finances, etc.?: No Are you currently unemployed and looking for a job?: No Are you interested in more education?: No Currently or been in a relationship where the following occur: I choose not to answer THRIVE Score: 0 AUDIT C Alcohol Use Questionnaire (AUDIT-C) 1. How often do you have a drink containing alcohol?: Never 3. How often do you have six or more drinks on one occasion?: Never Total Score: 0 MICHELE-7 AMB Questionnaire MICHELE-7 Date MICHELE - 7 assessed: 03/04/25 Feeling nervous, anxious, or on edge: 0 = Not at all Not being able to stop or control worryin = Not at all Worrying too much about different things: 0 = Not at all Trouble relaxin = Not at all Being so restless that it is hard to sit still: 0 = Not at all Becoming easily annoyed or irritable: 0 = Not at all Feeling afraid as if something awful might happen: 0 = Not at all Total MICHELE-7 score (0-4 normal; 5-9 mild; 10-14 moderate; 15-21 severe): 0 Source: Developed by Drs. Trae Simeon, Saida Campoverde, Chiki Hummel and colleagues, with an educational yeyo from [employer]. MICHELE-7 Assessment Billing MICHELE-7 Assessment Tool: MICHELE-7 Assessment 88833 Review of Systems Const Denies headache(s) Eyes Denies loss of vision ENT Denies vertigo, Denies dizziness, Denies headache(s) and Denies sore throat Card Denies chest pain, Denies leg edema and Denies lightheadedness Resp Denies cough, Denies hemoptysis and Denies wheezing GI Denies abdominal pain, Denies melena, Denies constipation, Reports dyspepsia, Denies diarrhea and Denies vomiting Denies dysuria, Denies urinary frequency and Denies urinary urgency Musc Denies arthralgias, Denies joint swelling, Denies numbness and Denies tingling Neuro Denies Abnormal speech present, Denies behavioral changes, Denies vertigo, Denies dizziness, Denies headache(s), Denies loss of vision, Denies memory loss, Denies numbness and Denies tingling Psych Denies anxiety, Denies behavioral changes, Denies depression, Denies memory loss and Denies panic attacks Jonathan/Lymph Denies easy bleeding and Denies easy bruising Aller/Immun Denies wheezing Physical exam (Primary Care) Vital Signs: Last Vital Signs Pulse 83 03/04/25 10:42 BP 144/68 H 03/04/25 10:42 Pulse Ox 97 03/04/25 10:42 Oxygen Delivery Method Room Air 03/04/25 10:42 Care Plan Goal for BP management: Continue current antihypertensive medication Next steps: Monitor blood pressure at home with goal blood pressure to be below 140/90 BMI result Body Mass Index 28.0 Tobacco/Smoking Status: Tobacco use Status Tobacco use date assessed 03/04/25 03/04/25 10:48 Patient Tobacco Use Status Never used Tobacco 03/04/25 10:48 e-Cigarette/Vaping Use Never Used 03/04/25 10:48 PHQ-9: PHQ-9 Score PHQ-9: Total score 0 03/04/25 10:48 Depression Screening Interpretation: Negative Thrive Assessment: Date of Thrive Assessment Date Thrive assessed 03/04/25 03/04/25 10:48 Currently or been in a relationship where the following occur: I choose not to answer Const General: healthy appearing, no acute distress, alert and awake Nutritional Appearance: well nourished Orientation/consciousness: oriented to person, oriented to place and oriented to time HENMT Ears: TM's normal bilaterally General nose exam: Normal nasal mucous membranes and turbinates present Eyes Conjunctivae: conjunctivae normal Sclerae: sclerae normal Pupils: Equal, round and reactive pupils present Neck Neck: Yes no lymphadenopathy and Yes no JVD Thyroid: Thyroid normal Carotids: no bruits Resp Effort & Inspection: normal respiratory effort and not tachypneic Auscultation: no crackles, no rales, no rhonchi and no wheezes Cardio Rate: regular rate Rhythm: regular rhythm Heart sounds: no murmurs and normal S1 and S2 GI Palpation (GI): Soft to palpation, nontender, no hepatomegaly and no splenomegaly Auscultation: normal bowel sounds Skin General skin exam: no rashes or lesions noted and dry skin Neuro General: oriented to person, oriented to place and oriented to time Cranial nerves: Yes Equal, round and reactive pupils present Speech: No Abnormal speech present Gait exam (Neuro): Normal gait present Motor exam (neuro): no tremor noted Extrem Right upper extremity: full ROM Left upper extremity: full ROM Right lower extremity: full ROM; no edema Left lower extremity: full ROM; no edema Psych Mental Status: mental status grossly normal Speech and movement: Normal speech and movement present Affect: normal affect Attitude: cooperative Thought process: Normal thought process present Coding Level of Care Code Est Pt Level 4 (23751) Diagnoses Type 2 diabetes mellitus with hyperglycemia, without long-term current use of insulin E11.65 Diabetes mellitus long term acute care registered nurse insulin use: without long term acute care registered nurse use Diabetes mellitus complication status: with hyperglycemia Essential hypertension I10 Mixed hyperlipidemia E78.2 Hyperlipidemia type: mixed hyperlipidemia Hypothyroidism, unspecified type E03.9 Hypothyroidism type: unspecified Paroxysmal A-fib I48.0 Gastroesophageal reflux disease without esophagitis K21.9 Esophagitis presence: without esophagitis Seasonal allergic rhinitis due to pollen J30.1 Allergic rhinitis trigger: pollen Allergic rhinitis seasonality: seasonal Additional Codes MICHELE-7 Assessment Billing - MICHELE-7 Assessment Tool: MICHELE-7 Assessment [id number] ([id number]) Assessment & Plan Assessment & Plan (1) Type II diabetes mellitus: Code(s): E11.9 - Type 2 diabetes mellitus without complications Category: Medical Qualifiers: Diabetes mellitus custodial insulin use: without custodial use Diabetes mellitus complication status: with hyperglycemia Qualified Code(s): E11.65 - Type 2 diabetes mellitus with hyperglycemia Plan: Patient's type 2 diabetes well controlled on current medication. Most recent A1c below 7 Continues on GLP 1, glipizide and Jardiance (2) Essential hypertension: Code(s): I10 - Essential (primary) hypertension Category: Medical Plan: Patient's blood pressure slightly elevated today in office. He reports he did not take his blood pressure medication today.. Will continue current dose of lisinopril 10 mg Goal blood pressures to be below 140/90 and above 100/60 (3) Hyperlipidemia: Code(s): E78.5 - Hyperlipidemia, unspecified Category: Medical Qualifiers: Hyperlipidemia type: mixed hyperlipidemia Qualified Code(s): E78.2 - Mixed hyperlipidemia Plan: Patient promises to get fasting labs done before next office visit. Goal LDL is to be below 100 due to his cardiovascular risk. (4) Hypothyroidism: Code(s): E03.9 - Hypothyroidism, unspecified Category: Medical Qualifiers: Hypothyroidism type: unspecified Qualified Code(s): E03.9 - Hypothyroidism, unspecified Plan: Patient continues to follow Endocrinology at [facility]. He continues on levothyroxine 200 mcg. Will continue to follow TSH to assure normal. (5) Paroxysmal A-fib: Code(s): I48.0 - Paroxysmal atrial fibrillation Category: Medical Plan: Patient is followed by [facility] Cardiology. Continues on labetalol for rate control and Eliquis as his anticoagulation. He denies any overt signs of bleeding. (6) GERD (gastroesophageal reflux disease): Code(s): K21.9 - Gastro-esophageal reflux disease without esophagitis Category: Medical Qualifiers: Esophagitis presence: without esophagitis Qualified Code(s): K21.9 - Gastro-esophageal reflux disease without esophagitis Plan: To address his gastrointestinal symptoms of gas and bloating, which are suspected to be a side effect of Mounjaro, a prescription for an antacid will be sent to his pharmacy to be taken on an empty stomach each morning. He is also advised to identify and avoid food triggers and to discuss these symptoms with his pulper operator to rule out a cardiac etiology. (7) Allergic rhinitis: Code(s): J30.9 - Allergic rhinitis, unspecified Category: Medical Qualifiers: Allergic rhinitis trigger: pollen Allergic rhinitis seasonality: seasonal Qualified Code(s): J30.1 - Allergic rhinitis due to pollen Plan: Will supply patient with cetirizine to use on a nightly basis due to his reports of sneezing and allergic rhinitis. Orders: Orders AMB Hemoglobin A1c Today Z13.9 - Encounter for screening, unspecified
--- OUTSIDE RECORDS SUMMARY | 2025-03-04 12:26 | XMS_ITS | Continuity of Care Document ---
Author Organization [facility] [address] [place] [address] Phone [phone] Care Team Providers Care [employer] Lead Name Role Phone John Mercado Care Team Information Receiv er [phone] Problems Active Problems Provider Date Type 2 diabetes mellitus Raymundo Diaz M.D. Onset: 11/25/2021 Hypothyroidism Raymundo Diaz M.D. Onset: 0 11/25/2021 Graves' disease Raymundo Diaz M.D. Onset: 0 11/25/2021 Atrial fibrillation Raymundo Diaz M.D. Onse t: 04/22/2022 Social History Type Date Description Comments Sex Male Sex Unknown Lives With Girlfriend Tobacco Use Start: Unknown Never Smoked Cigarettes ETOH Use Occasionally consumed beer i n the past Allergies and adverse reactions Description No Known Drug Allergies Medications Active Medications SIG Qnty Indications Order ing Provider Date Follsmpx00pt/0.5ML Solution Auto-Inject inject 10 mg weekly 6ml E11.9 Raymundo Diaz M.D. 07/23/2024 Freestyle Edna 3/Sensor/Glucose Monitoring [id number] [facility] use 1 sensor for 14 days to check blood sugars 6units E11.9 Raymundo Diaz M.D. 12/21/2023 Dexcom G7 Health Care Technician Device Use as Directed 1units E11.9 Raymundo Diaz M.D. 05/27/2023 Dexcom G7 ReceiverDevice use for sugar reading dx e11.9 1units [id number] Raymundo Diaz M.D. 05/27/2023 Levothyroxine [id number] Tablets Take 1 Tablet 6 Days Per Week 78tabs Raymundo Diaz M.D. 04/29/2023 Hjoekvxlb31bj Tablets 1 by mouth every day 90tabs Raymundo Diaz M.D. 12/24/2021 Vwvmbpgrtqnlcqbatsj23g g Tablets 1 by mouth every day 90tabs Raymundo Diaz M.D. 11/25/2021 Xgywgwprfb90mg Tablets Take 1 Tablet By Mouth Every Day 90tabs Raymudno Diaz M.D. 10/05/2021 Mlucaiyuxow79nl Tablets Take 1 Tablet By Mouth Every Day 90tabs Raymundo Diaz M.D. Glipizide/Metformin Hydrochloride5-500mg Tablets Take 2 Tablets Twice Daily 360tabs Raymundo Diaz M.D. Pacsypc8ir Tablets Take 1 Tablet By Mouth Twice Daily Travon Eugene M.D. Labetalol XSY992xr Tablets Take 1 Tablet By Mouth Twice Daily 180tabs Raymundo Diaz M.D. Vital Signs Date Vital Result Comment 07/23/2024 10:15am BP Systolic 100 mmHg BP Diastolic 70 mmHg Heart Rate 72 /min Height 66 inches 5'6 Weight 184.00 lb BMI (Body Mass Index) 29.7 kg/m2 Results Test Acquired Date Facility Test Result H/L Range Note Hemoglobin A1c 07/23/2024 Inhouse Hemoglobin A1c 6.9 Glucose Fingerstick 07/23/2024 Inhouse Glucose Fingerstick 113 TSH Rfx on Abnormal to Free T4 08/26/2023 [facility] TSH RFX On Abnormal To Free T4 5.920 uIU/mL High 0.450-4 .500 T4,Free (Direct) 1.21 ng/dL 0.82-1. 77 Hemoglobin A1c 08/26/2023 Inhouse Hemoglobin A1c 6.5% Glucose Fingerstick 08/26/2023 Inhouse Glucose Fingerstick 148 TSH With Reflex To FT4 04/26/2023 [facility] TSH With Reflex To FT4 <pending> Free T4 04/25/2023 [facility] Free T4 1.04 ng/dL (0.70-1 .80) Glucose Fingerstick 04/25/2023 Inhouse Glucose Fingerstick 114 Hemoglobin A1c 04/25/2023 Inhouse Hemoglobin A1c 7.7% Urinary Microalbumin 04/25/2023 [facility] Micro-Albumin <12.0 mg/L (<20) 1 Malb/Creat Ratio Unable to calcul <SEE NOTE> MG/GM (0-20) 2 Urine Creat For Micro Albumin 85.1 mg/dL TSH With Reflex To FT4 04/25/2023 [facility] TSH With Reflex To FT4 6.24 uIU/mL High (0.4-4. 2) Complete Abc With Diff 04/25/2023 [facility] [...] 0) Lymph # 2.1 K/MM3 (0.8-3. 1) [place]# 0.6 K/MM3 (0.4-1. 3) Eo # 0.1 K/MM3 (0.0-0. 4) Baso # 0.0 K/MM3 (0.0-0. 1) Abs. Imm Gran 0.0 K/MM3 Neut 52.8 % (44-76) Lymph 36.0 % (15-43) Monocyte 9.9 % (4.5-10 .5) Eo 0.9 % (0-6) Baso 0.2 % (0-2) Imm Gran 0.2 % Urinalysis Complete 04/25/2023 [facility] Appear/Color LIGHT YELLOW 3 SP. [place] 1.040 High (1.002- 1.030) Urine PH 6.0 (5.0-8. 0) Urine Albumin NEGATIVE (Neg) Urine Glucose 4+ Abnormal (Neg) Urine Ketones 1+ Abnormal (Neg) Urine Bilirubin NEGATIVE (Neg) Urine Hemoglobin NEGATIVE (Neg) Urine Nitrite NEGATIVE (Neg) Urine Leukocyte NEGATIVE (Neg) Urobilinogen NORMAL mg/dL (Norm) Urine WBCs <1 /HPF (0-5) Urine RBCs 1 /HPF (0-3) Lipid Panel 04/25/2023 [facility] Cholesterol, Total 162 mg/dL (<200) Triglyceride 100 mg/dL (<150) HDL Chol 47 mg/dL (>39) LDL Cholesterol, Calculated 95 mg/dL (0-130) Non HDL Cholesterol (Calc) 115 mg/dL (<160) Comprehensive Metabolic Panl 04/25/2023 [facility] [...] (0-41) Estimated GFR Creatinine 95 ML/MIN/1.7 3M2 4 Hemoglobin A1c 11/01/2022 Inhouse Hemoglobin A1c 7.2% Glucose Fingerstick 11/01/2022 Inhouse Glucose Fingerstick 111 Hemoglobin A1c 07/28/2022 Inhouse Hemoglobin A1c 7.5% Glucose Fingerstick 07/28/2022 Inhouse Glucose Fingerstick 125 TSH With Reflex To FT4 04/22/2022 [facility] TSH With Reflex To FT4 1.66 uIU/mL (0.4-4. 2) Hemoglobin A1c 04/22/2022 Inhouse Hemoglobin A1c 7.7% Glucose Fingerstick 04/22/2022 Inhouse Glucose Fingerstick 113 Glucose Fingerstick 11/25/2021 Inhouse Glucose Fingerstick 236 Hemoglobin A1c 11/25/2021 Inhouse Hemoglobin A1c 7.9% 1 The urine microalbum in test is designed to monitor renal function. When screening for Bence Godoy proteinuria, urine electrophoresis is recommended. 2 Unable to calculate 3 CLEAR 4 Creatinine based est imated glomerular filtration (eGFR) in adults is calculated using the [employer] recommended 2020 CKD-EPI equation. Estimates GFR from serum creatinine, age and sex. Procedures Date Code Description Status 06/19/2024 NSHOWOFF No Show Office Visit Complet ed 02/16/2024 NSHOWOFF No Show Office Visit Complet ed 11/30/2023 NSHOWOFF No Show Office Visit Complet ed 08/10/2023 NSHOWOFF No Show Office Visit Complet ed 04/14/2023 NSHOWOFF No Show Office Visit Complet ed 02/24/2022 NSHOWOFF No Show Office Visit Complet ed Medical Devices Description No Information Available Encounters Type Date Location Provider Dx Diagnosis Office Visit 07/23/2024 10:15a Main Office Raymundo Diaz M.D. E11.9 Type 2 diabetes mellitus without complications E03.9 Hypothyroidism, unsp ecified Assessments Date Code Description Provider 07/23/2024 E11.9 Type 2 diabetes mellitus without complications Raymundo Diaz M.D. 07/23/2024 E03.9 Hypothyroidism Raymundo ceja M.D. Plan of Treatment Future Appointment(s):* 03/13/2025 11:15 am - Raymundo Diaz M.D. at Main Office 07/23/2024 - Raymundo Diaz M.D.* E11.9 Type 2 diabetes mellitus without complications * E03.9 Hypothyroidism* New Medication:* Mounjaro 10 mg/0.5ML Functional Status Description No Information Available Mental Status Description No Information Available Referrals Description No Information Available
--- OUTSIDE RECORDS SUMMARY | 2025-03-04 12:26 | XMS_ITS | Clinical Summary ---
Author Organization [address] [place] [address] [place] [address] Phone Care Team Providers Care Radiation Officer Name Role Phone Geoff Reyes MD Primary Care Provider [phone] Allergies No known active allergies Medications apixaban (ELIQUIS) 5 mg tablet Take 1 tablet (5 mg total) by mouth 2 (two) times a day. Active glipiZIDE (GLUCOTROL) 10 mg tablet Take 1 tablet (10 mg total) by mouth 2 (two) times a day before meals. Active cyanocobalamin 2,000 mcg tablet Take 1 tablet (2,000 mcg total) by mouth 1 (one) time each day. Active loratadine (CLARITIN) 10 mg tablet Take 1 tablet (10 mg total) by mouth 1 (one) time each day. Active metFORMIN (GLUCOPHAGE) 500 mg tablet Take 1 tablet (500 mg total) by mouth 2 (two) times a day with meals. Active simvastatin (ZOCOR) 20 mg tablet Take 1 tablet (20 mg total) by mouth at bedtime. Active levothyroxine (SYNTHROID, LEVOTHROID) 200 mcg tablet Take 1 tablet (200 mcg total) by mouth 1 (one) time each day before breakfast. Active lisinopriL (PRINIVIL,ZESTRI L) 20 mg tablet Take 1 tablet (20 mg total) by mouth 1 (one) time each day. 90 each 3 06/04/2024 6 Active labetaloL (NORMODYNE) 200 mg tablet Take 1 tablet (200 mg total) by mouth 2 (two) times a day. 180 each 3 06/04/2024 6 Active Active Problems Problem Noted Date Diagnosed Date Essential hypertension, benign 05/15/2024 Overview (05/15/2024): Last Assessment & Plan: Well-controlled on current regimen of labetalol, lisinopril Assessment & Plan (06/04/2024 2:58 PM EDT): Well controlled at home and during prior visits. - Refills for labetalol and lisinopril 20 mg provided. Hyperlipidemia 05/15/2024 Overview (05/15/2024): Last Assessment & Plan: Continue current simvastatin 20 mg at bedtime Assessment & Plan (06/04/2024 2:58 PM EDT): Continue current simvastatin. Needs updated lipids. Paroxysmal atrial fibrillation 06/13/2014 Overview (05/15/2024): -Diagnosed in the setting of Graves' disease around 2014 - Currently on rate control and Eliquis for CVA prophylaxis- has not had any major recurrences recently - Echocardiogram most recently on 04/26/2022 showing upper normal wall thickness with normal LV cavity size and systolic function, normal regional wall motion with an ejection fraction of 55 to 60%, normal left ventricular diastolic function, no hemodynamically significant valve disease, normal pulmonary artery systolic pressure, mildly dilated ascending aorta at 4 cm and mildly dilated transverse aorta at 3.2 cm-unchanged from echo in 2019 Last Assessment & Plan: Continue Eliquis 5 twice daily for CVA prophylaxis, labetalol 200 twice daily for rate control, currently in sinus rhythm Assessment & Plan (06/04/2024 2:58 PM EDT): No recent recurrences. - Continue Eliquis and labetalol at current dosages for blood pressure and rate control. - Blood pressure typically well-managed at home and during previous visits, with readings in the 120s over 70s. - No changes to medication regimen despite slightly elevated reading today, likely due to white coat syndrome and stress. Orders: ECG 12 lead Surgical History Surgery Date Site/Laterality Comments HAND [...] (coronary artery disease) Paroxysmal atrial fibrillati on (CMS/HCC V24, CMS/HCC V28) 06/13/2014 DX:Paroxysmal atrial fibril lation (HCC) Hyperlipemia DX:Hyperlipemia Erectile dysfunction 11/30/2011 DX:Erectile dysfunction DM (diabetes mellitus), type 2 with peripheral vascular complications (CMS/HCC V24, CMS/HCC V28) DX:DM (diabetes mellitus), type 2 with peripheral vascular complications (HCC) Diabetes mellitus with ophth almic manifestations, controlled (CMS/HCC V24, CMS/HCC V28) 05/06/2014 DX:Diabetes mellitus with op hthalmic manifestations, controlled ([facility]) Family History Medical History Relation Name Comments Diabetes Mother Heart attack Mother Stroke Mother Relation Name Status Comments Mother Social History Tobacco Use Types Packs/Day Years Used Date Smoking Tobacco: Never Smokeless Tobacco: Never Alcohol Use Standard Drinks/Week Comments No 0 (1 standard drink = 0.6 oz pur e alcohol) Sex and Gender Information Value Date Recorded Sex Assigned at Not on file Legal Sex Male 3:50 AM EST Gender Identity Not on file Sexual Orientation Not on file Last Filed Vital Signs Vital Sign Reading Time Taken Comments Blood Pressure 140/60 06/04/2024 10:06 AM EDT Pulse 74 06/04/2024 10:06 AM EDT Temperature - - Respiratory Rate - - Oxygen Saturation 98% 06/04/2024 10:06 AM EDT Inhaled Oxygen Concentration - - Weight 85.7 kg (189 lb) 06/04/2024 10:06 AM EDT Height 167.6 cm (5' 6 ) 06/04/2024 10:06 AM EDT Body Mass Index 30.51 06/04/2024 10:06 AM EDT Plan of Treatment Health Maintenance Due Date Last Done Comments Cholesterol Screening (Lipid Panel) 02/20/2022 Colorectal Cancer Screening: Stool Based Tests (FOBT/FIT) 02/20/2022 Falls Risk Assessment 02/20/2022 Hepatitis C Screening 02/20/2022 Medicare Annual Wellness Visit 02/20/2022 Social Influencers of Health Screening 02/20/2022 Hypertension/CHF/CAD Annual BMP Blood Test 02/21/2022 RSV Immunization Adult Patients (1 - 1-dose 75+ series) 11/17/2023 Depression Screening 03/14/2024 COVID-19 Vaccine (2024- season) 2024 12/07/2022, 10/19/2021, 01/15/2021, Additional history exists Influenza Vaccine (#1) 2024 , 12/15/2021, 02/22/2021, Additional history exists DTaP,Tdap,and Td Vaccines (3 - Td or Tdap) 08/14/2029 08/15/2019, 03/31/2012 Pneumococcal Vaccine: 50+ Years Completed 01/04/2020, 11/01/2018, 11/08/2017, Additional history exists Zoster Vaccines Completed 11/29/2022, 09/28/2022 HIB Vaccines Aged Out No longer eligi [...] patient's age to complete this topic Meningococcal B Vaccine Aged Out No l onger eligible based on patient's age to complete this topic RSV Immunization Patients Under 20 months Aged Out No longer eligible based on patient's age to complete this topic Varicella Vaccines Aged Out No longer eligible based on patient's age to complete this topic [place] [address] [address] MEDICARE ADVANTAGE on file Care Teams Radiation Officer Relationship Specialty Start Date End Date Geoff Reyes MD [facility] [address] [place] [address] [address] [place] [id number] PCP - General 04/26/22
== END 2025-03-04 11:08 | disposition home or self-care (01) ==
LOC: HO.HMCH 10:16
PROVIDERS: PCP Physician Assistant; Visit Provider Physician Assistant
DX: E11.65 Type 2 diabetes mellitus with hyperglycemia (principal); I48.0 Paroxysmal atrial fibrillation; I10 Essential (primary) hypertension; E78.2 Mixed hyperlipidemia; E03.9 Hypothyroidism, unspecified; K21.9 Gastro-esophageal reflux disease without esophagitis; J30.1 Allergic rhinitis due to pollen; Z13.9 Encounter for screening, unspecified

== ENCOUNTER → 2025-03-04 10:15 | Outpatient (BNVA) | payer MEDICARE, SELFPAY | PROVIDERS: PCP Physician Assistant; Visit Provider Physician Assistant | DX: E11.65 Type 2 diabetes mellitus with hyperglycemia (principal); I10 Essential (primary) hypertension; E78.2 Mixed hyperlipidemia; E03.9 Hypothyroidism, unspecified; I48.0 Paroxysmal atrial fibrillation; K21.9 Gastro-esophageal reflux disease without esophagitis; J30.1 Allergic rhinitis due to pollen; Z13.31 Encounter for screening for depression; Z13.39 Encounter for screening examination for other mental health and behavioral disorders | CPT/HCPCS: 83036; 96127; 99212 ==

== ENCOUNTER 2025-03-08 09:54 | Outpatient (REF) | payer MEDICARE, SELFPAY ==
--- OUTSIDE RECORDS SUMMARY | 2023-11-22 04:15 | XMS_ITS ---
Author Organization [facility] Address [address] [facility] [place] [address] Care Team Providers Care Phytopathologist Name Role Phone John Mercado Primary Care Provider Unavailab Piper Queen Unavailable [phone] Robbin Rodriguez Unavailable [phone] Encounters Encounter Location Date Provider Diagnosis [facility] [address] [facility] [address] [place] [address] 11/22/2023 Robbin Rodriguez Tinea unguium B35.1 ; Type 2 diabetes mellitus with diabetic polyneuropathy E11.42 ; Other hammer toe(s) (acquired), right foot M20.41 ; Other hammer toe(s) (acquired), left foot M20.42 ; Unspecified atherosclerosis of [place] arteries of extremities, bilateral legs I70.203 ; Xerosis cutis L85.3 and Subungual hematoma of toenail of left foot, initial encounter S90.222A Assessments Encounter Date Diagnosis (ICD Code) Assessment Notes Treatment Notes Treatment Clinical Notes Section Notes 11/22/2023 Tinea unguium (ICD-10 - B35.1) 11/22/2023 Type 2 diabetes mellitus with diabetic polyneuropathy (ICD-10 - E11.42) 11/22/2023 Other hammer toe(s) (acquired), right foot (ICD-10 - M20.41) 11/22/2023 Other hammer toe(s) (acquired), left foot (ICD-10 - M20.42) 11/22/2023 Unspecified atherosclerosis of [place] arteries of extremities, bilateral legs (ICD-10 - I70.203) 11/22/2023 Xerosis cutis (ICD-10 - L85.3) 11/22/2023 Subungual hematoma of toenail of left foot, initial encounter (ICD-10 - S90.222A) Plan Of Treatment Next Appt Details Follow Up: prn, Reason: Provider Name:Pipre rice, 05/10/2025 10:00:00 AM, [address] [facility], [address], [place], [address], Procedure Notes * Category Sub-Category Detail Notes I&D subungual hematoma: Location TA Procedure: Performed incision a nd drainage of subungual hematoma with use of sterile power joanne and/or nail nipper. Approximately ( 0.1 ) cc of hemorrhagic fluid material was drained. No underlying bone was visualized. An application of sterile Bacitracin dressing was performed. Local wound care instructions were discussed and dispensed , Pt was advised of the possibilty for nail auto-avulsion (16029), DIABETES: Pt was advised as to the risk of delayed or nonhealing due to diabetes. Pt is to call the office with any questions, concerns, or complications Anesthesia was deferred - NEURO SAAD: patient has medically documented neuropathic condition affecting sensation Progress Notes * Beulah QUIÑONEZ CDOB:1950 (74 yo M)Acc No.[id number]:11/22/2023 Progress Note Patient: Beulah MADRID Provider: Oumou Alva DPM :1950 A ge:73 Y S ex:Male Date:11/22/2023 Address:[address] [place] [address] [address] [place], [id number] Pcp:John Mercado Subjective: * Chief Complaints: * * HPI: A t Risk footcare: Pt States Last PCP Visit: D ate: 0 07/23/2023 F oot Pain: Nature: n umbness, pressure. Location B /L. Duration: s everal years. Onset/Cause: d pn. Course: w [place]. Aggrevated: s tanding, walking. Treatments: p ast hx of tx with dpm. Quality/Severity m oderate. S kin problems: Nature: d iscolored, bleeding, bruising. Location: [facility]. Duration: a week. Onset/Cause: w ork environment, shoe gear. Course: w orse. Aggravated by: n o aggrevating factors. Treatments: n one. Severity/Quality: m oderate. * ROS: G eneral/Constitutional: Nausea d enies, denies. V omiting d enies, denies.?Hunger Thirst d enies, denies. L oss appetite d enies. C hills d enies, denies. F atigue d enies, denies. F ever d enies, denies. N ight Sweats a dmits, denies. U nexplained weight loss d enies, denies. U nexplained weight gain d enies. O phthalmologic: Blurred vision d enies. R ed eye d enies. ? H EENTM: Dentures d enies, denies. D izziness a dmits, denies. G lasses/contacts a dmits, denies. R etinopathy d enies, denies. B lurred/double vision d enies, denies. T MJ d enies, denies. D ischarge/drainage d enies, denies. I mplants d enies, denies. S ore throat d enies. D ental implants d enies. H louie of hearing a dmits, denies. D ifficulty chewing/swallowing/speaking d enies, denies. N ose bleeds d enies, denies. S ore mouth d enies, denies. S wollen glands d enies. R espiratory: On Oxygen d enies, denies. P neumonia/pleurisy d enies, denies. B ronchitis d enies, denies. E mphysema d enies, denies. C oughing?denies, denies. C ough blood d enies, denies. S hortness of breath d enies, denies. W heezing d enies, denies. C ardiovascular: Pacemaker d enies, denies. M VIDEO PRODUCTION ENGINEER d enies, denies.?WPW d enies, denies. C HF d enies, denies. H eart attack d enies, denies.?Septal defect d enies, denies. R apid beat d enies, denies. C hest pain d enies, denies. A trial Fib. d enies, denies. M urmur/Palpitations d enies, denies. G astrointestinal: Hemorrhoids d enies, denies. S tomach/Abdominal pain?denies, denies. D ark blood stool d enies, denies. I rritable bowel d enies, denies. C onstipation d enies, denies. D iarrhea d enies, denies. V omiting d enies. H ematology: Swelling d enies, denies. C lots d enies. V aricose Veins d enies. B ruising d enies, denies. B leeding problem d enies, denies. G enitourinary: Blood urine d enies, denies. F requent/Painfu/urination/bladder control d enies, denies. K idney stones d enies, denies. I nfection (UTI)?denies, denies. N ephropathy d enies, denies. s ex trans dis (STD) d enies. P rostate d enies. M usculoskeletal: Hammertoes d enies, denies. B unions d enies, denies. S coliosis/kyphosis d enies. B ack Pain d enies. M uscle Cramps/ Resting a dmits. M uscle cramps / walking d enies, denies. G eneralized aches and pains d enies, denies. W eakness d enies, denies. I nteg.: Lambert d enies, denies. S cars d enies, denies. C orns/calluses d enies, denies. I ngrown nails d enies, denies. P ainful nails d enies, denies. O pen Sores d enies. R ashes d enies, denies. N eurologic: Difficulty sleeping d enies, denies. B ipolar d enies. B rain disorder d enies, denies. N umbness d enies. B alance trouble d enies, denies. C onfusion d enies, denies. F ainting/blackouts d enies, denies. H eadache d enies. T ingling a dmits. T remors d enies, denies. * Medical History: Objective: * Vitals: * Examination: O phthalmology Referral: DIABETES EYE EXAM D iabetic Retinopathy Screening: Y es N eurological: SENSORY: Neurological exam demonstrates, reduced vibration sensation, 5.07 monofilament test performed at plantar aspects of 5 varied sites per foot shows sensation, reduced , B/L. TINEL'S COMPRESSION: N egative tarsal tunnel, gilbert pedis, and medial calcaneal nerves B/L. BABINSKI REFLEX: a bsent. V ascular: DP PULSES (B): 0/4, B/L. PT PULSES (B): 0/4, B/L. CAPILLARY FILL TIME: 3 secs. per digit. TROPHIC CONDITION-TEXTURE/ELASTICITY/TURGOR/HAIR GROWTH (B):?normal, B/L. TEMPERTURE GRADIENT (C): w arm to cool, proximal to distal, B/L. PIGMENTATION: n ormal, B/L. EDEMA (C): n o edema. TELANGECTASIA: a bsent. VARICOSITIES: a bsent. N ails: NAILS are: Elongated, overgrown, dystrophic, 1-5 B/L, There is evidence of pain on palpation, and an area of subungual HEMORRAGHIC fluid with a pre-operative size measuring approximately ( 6 ) mm square, TA. D ermatologic: SKIN FINDINGS: Skin exam reveals Keratotic lesion(s) located at, Plantar, T6, SUB MTH (s), 1, 2, 3, 5, Heel(s), B/L. G eneral Examination: GENERAL APPEARANCE: p leasant, alert, well nourished, well developed, well hydrated, with good attention to hygene/body habitus, and in no acute distress. ORIENTED: p erson,place, and time. FOOT EXAM: L ower Extremity Neurological Exam performed:?Yes V isual exam of foot performed: Y es D ate 0 08/23/2023 S ensory testing performed: s ensations diminished P edal pulse taking performed: a bsent N euroma Pain: PALPATION: N o interspace pain noted on palpation. ? O rthopedic: MUSCLE STRENGTH: 5 /5 all groups in a symmetrical fashion , B/L. DIGITAL DEFORMITIES: Digital contracture, PIPJ, 2-5 B/L, incompl-reducible with WB, or to push-up test, no over, nor underlapping. Assessment: * Assessment: 1. T inea unguium - B35.1 2 . T ype 2 diabetes mellitus with diabetic polyneuropathy - E11.42 (Primary) 3 . O ther hammer toe(s) (acquired), right foot - M20.41 4 . O ther hammer toe(s) (acquired), left foot - M20.42 5 . U nspecified atherosclerosis of [place] arteries of extremities, bilateral legs - I70.203 ? 6 . X erosis cutis - L85.3 7 . S ubungual hematoma of toenail of left foot, initial encounter - S90.222A Plan: * Treatment: * Procedures: I &D subungual hematoma:: Location T A. Anesthesia w as deferred - NEUROPATHY: patient has medically documented neuropathic condition affecting sensation. Procedure: P erformed incision and drainage of subungual hematoma with use of sterile power joanne and/or nail nipper. Approximately ( 0.1 ) cc of hemorrhagic fluid material was drained. No underlying bone was visualized. An application of sterile Bacitracin dressing was performed. Local wound care instructions were discussed and dispensed , Pt was advised of the possibilty for nail auto-avulsion (32439), DIABETES: Pt was advised as to the risk of delayed or nonhealing due to diabetes. Pt is to call the office with any questions, concerns, or complications. * Procedure Codes: 1 1740 DRAIN BLOOD FROM UNDER NAIL, Modifiers: TA * Follow Up: p rn * Images: * The named appointment provid er may or may not be the originator of this progress note, and it is not deemed complete until electronically signed by the appointment provider. Sign off status: Pending * Provider: Oumou Alva DPM Date: 0 11/22/2023 Generated for Pipe g[place]ola/Faxing/eTransmitting on: 1 05/09/2024 09:58 AM EST History and Physical Notes * HPI (History of Present Illness) Category Sub-Category Detail Notes Category Not es Skin problems Nature: discolored, bleeding, bruis ing Location: B/L , 1st Duration: a week Onset/Cause: work environment, sh oe gear Course: worse Aggravated by: no aggrevating facto rs Treatments: none Severity/Quality: moderate At Risk footcare Pt States Last PCP Visit: Date:: 07/23/19 24 Foot Pain Aggrevated: standing, walking Onset/Cause: dpn Course: worse Duration: several years Nature: numbness, pressure Treatments: past hx of tx with d pm Quality/Severity moderate Location B/L Examination Category Sub-Category Detail Notes Category Not es Neuroma Pain PALPATION: No interspace pain noted on palpation Neurological SENSORY: Neurological exa m demonstrates, reduced vibration sensation, 5.07 monofilament test performed at plantar aspects of 5 varied sites per foot shows sensation, reduced , B/L BABINSKI REFLEX: absent TINEL'S COMPRESSION: Negative tarsal radha danay, gilbert pedis, and medial calcaneal nerves B/L Dermatologic SKIN FINDINGS: Skin exam reveal s Keratotic lesion(s) located at, Plantar, T6, SUB MTH (s), 1, 2, 3, 5, Heel(s), B/L Orthopedic DIGITAL DEFORMITIES: Digital con tracture, PIPJ, 2-5 B/L, incompl-reducible with WB, or to push-up test, no over, nor underlapping MUSCLE STRENGTH: 5/5 all groups in a symmetrical fashion , B/L General Examination GENERAL APPEARANCE: pleasant , alert, well nourished, well developed, well hydrated, with good attention to hygene/body habitus, and in no acute distress FOOT EXAM: Lower Extremity Neurological Exa m performed:: Yes Visual exam of foot performed:: Yes Date: 08/23/2023 Sensory testing performed:: sensations d iminished Pedal pulse taking performed:: absent ORIENTED: person,place, and ti me Ophthalmology Referral DIABETES EYE EXAM Diabetic Retinopa thy Screening:: Yes Vascular DP PULSES (B): 0/4, B/L PT PULSES (B): 0/4, B/L CAPILLARY FILL TIME: 3 secs. per digit TEMPERTURE GRADIENT (C): warm to cool, p roximal to distal, B/L TROPHIC CONDITION-TEXTURE/ELASTICITY/TURGOR/HAIR GROWTH (B): normal, B/L EDEMA (C): no edema TELANGECTASIA: absent VARICOSITIES: absent PIGMENTATION: normal, B/L Nails NAILS are: Elongated, overg rown, dystrophic, 1-5 B/L, There is evidence of pain on palpation, and an area of subungual HEMORRAGHIC fluid with a pre-operative size measuring approximately ( 6 ) mm square, TA
--- OUTSIDE RECORDS SUMMARY | 2024-06-26 06:00 | XMS_ITS ---
Author [facility] Address [address] [place] [address] Care Team Providers Care Ext Js Developer Name Role Phone John Mercado Primary Care Provider Unavailab Piper Queen [phone] Encounters Encounter Location Date Provider Diagnosis [address] [address] 06/26/2024 Piper Hein Plan Of Treatment Next Appt Details Provider Name:Piper rice, 05/10/2025 10:00:00 AM, [address] [place] [address], [phone], Progress Notes * Beulah QUIÑONEZ CDOB:1950 (74 yo M)Acc No.[id number]:06/26/2024 Progress Note Patient: Bernice Beulah WETZEL Provider: Chinedu Hein DPM :1950 A ge:73 Y S ex:Male Date:06/26/2024 Address:[address] [place] [address] [address], [id number] Pcp:John Mercado Subjective: * Chief Complaints: * * Medical History: Objective: * Vitals: Assessment: Plan: * Treatment: * Images: * The named appointment provid er may or may not be the originator of this progress note, and it is not deemed complete until electronically signed by the appointment provider. Sign off status: Pending * Provider: Chinedu Hein, MAYANK Date: 0 06/26/2024 Generated for Pipe gaxiola/Allan/José Luis on: 1 05/09/2024 09:58 AM EST
--- OUTSIDE RECORDS SUMMARY | 2025-03-05 05:00 | XMS_ITS ---
Author Organization [facility] [place] Address [address] [facility] [place] [address] Care Team Providers Care Body And Fender Worker Name Role Phone John Mercado Primary Care Provider Unavailab Piper Queen Unavailable [phone] Allergies No Known Allergies REASON FOR VISIT Painful Nail(s) Medications Medication SIG (Take, Route, Frequency, Duration) Notes Start Date End Date Status Levothyroxine Sodium Active Lisinopril 5 MG 1 tablet Once a day Active metFORMIN HCl w/ glipizide Act maya Simvastatin Active Ciclopirox 0.77 % 1 application thin film topically to nails Externally Once a day; Duration: 30 days Active Extra Depth Diabetic Shoes with 3 Pair Custom heat-molded multi-density innersoles for 1 year Dx: A ctive eliquis 5 mg Active glipiZIDE Active Labetalol HCl Active Social History Tobacco Use: Social History Observation Description Date Details (start date - stop date) Never Smoker NA - NA Tobacco use other than smoking: Question Answer Notes Are you an other tobacco user? No Tobacco Control (Standard) Question Answer Notes Tobacco use: Nonsmoker Additional Findings: Tobacco non-user Current no nsmoker AUDIT-C (Standard) Question Answer Notes Did you have a drink containing alcohol in the p ast year? No Points 0 Interpretation Negative Vital Signs Height 5ft 6in in 03/05/2025 Weight 171 lbs 03/05/2025 BMI 27.6 kg/m2 03/05/2025 Encounters Encounter Location Date Provider Diagnosis [facility] [place] [address] [address] 03/05/2025 Piper Hein Pain in right toe(s) M79.674 ; Onychomycosis B35.1 and Pain in left toe(s) M79.675 Assessments Encounter Date Diagnosis (ICD Code) Assessment Notes Treatment Notes Treatment Clinical Notes Section Notes 03/05/2025 Pain in right toe(s) (ICD-10 - M79.674) 03/05/2025 Onychomycosis (ICD-10 - B35.1) 03/05/2025 Pain in left toe(s) (ICD-10 - M79.675) Plan Of Treatment Pending Test Test Name Order Date *Liver Function Test (LFT) 03/05/2025 Next Appt Details Follow Up: 2-3 Months, Baljit n: Provider Name:Piper rice, 05/10/2025 10:00:00 AM, [address] [place] [address], [phone], Progress Notes * Beulah QUIÑONEZ CDOB:1950 (74 yo M)Acc No.[id number]:03/05/2025 Progress Note Patient: Bernice Beulah WETZEL Provider: Chinedu Hein DPM :1950 A ge:74 Y S ex:Male Date:03/05/2025 Address:[address] [place], [place] [phone] Pcp:John Mercado Subjective: * Chief Complaints: * P ainful Nail(s) * HPI: P ainful Nails: Nature: a neal, tender, discolored, thick. Location: B oth feet. Duration: s everal months. Course: w orse. Aggravated by: s hoegear causing difficulty standing/walking. Treatments: n one. * ROS: G eneral/Constitutional: Nausea d enies. V omiting d enies. H charlene Thirst d enies. L oss appetite d enies. C hills d enies. F atigue d enies.?Fever d enies. N ight Sweats d enies. U nexplained weight loss d enies. U nexplained weight gain d enies. H EENTM: Dentures d enies. D izziness d enies. G lasses/contacts a dmits. R etinopathy d enies. B lurred/double vision d enies. T MJ?denies. D ischarge/drainage d enies. I mplants d enies. S ore throat d enies. D ental implants d enies. H loiue of hearing d enies. D ifficulty chewing/swallowing/speaking d enies. N ose bleeds d enies. S ore mouth d enies. ? R espiratory: On Oxygen d enies. P neumonia/pleurisy d enies.?Bronchitis d enies. E mphysema d enies. C oughing d enies. C ough blood?denies. S hortness of breath d enies. W heezing d enies. C ardiovascular: Pacemaker d enies. M CEMENT CRUSHER OPERATOR d enies. W PW d enies. C HF d enies. H eart attack d enies. S eptal defect d enies. R apid beat d enies. C hest pain d enies. A trial Fib. d enies. M urmur/Palpitations d enies. G astrointestinal: Hemorrhoids d enies. S tomach/Abdominal pain d enies. D ark blood stool d enies. I rritable bowel d enies. C onstipation d enies. D iarrhea d enies. H ematology: Swelling d enies. C lots d enies. V aricose Veins d enies. B ruising d enies. B leeding problem d enies. G enitourinary: Blood urine d enies. F requent/Painfu/urination/bladder control d enies. K idney stones d enies. I nfection (UTI) d enies. N ephropathy d enies. s ex trans dis (STD) d enies. P rostate d enies. M usculoskeletal: Hammertoes d enies. B unions d enies. B ack Pain d enies. M uscle Cramps/ Resting d enies. M uscle cramps / walking d enies.?Generalized aches and pains d enies. W eakness d enies. I nteg.: Lambert d enies. S cars d enies. C orns/calluses?denies. I ngrown nails d enies. P ainful nails d enies. O pen Sores d enies. R ashes d enies. N eurologic: Difficulty sleeping d enies. B rain disorder d enies. N umbness a dmits. B alance trouble d enies. C onfusion d enies. F ainting/blackouts d enies. T ingling a dmits. T remors d enies. * Medical History: * Surgical History: N o Surgical History documented. * Hospitalization/Major Diagno stic Procedure: N o Hospitalization History. * Family History: M other: , diagnosed with Diabetic - NIDDM, Unspecified essential hypertension, Unspecified heart disease. F ather: , diagnosed with Diabetic - NIDDM. * Social History: T obacco Use: T obacco use other than smoking A re you an other tobacco user? N o Tobacco Control (Standard) T obacco use: N onsmoker A dditional Findings: Tobacco non-user C urrent nonsmoker D rugs/Alcohol: D rugs H ave you used drugs other than those for medical reasons in the past 12 months? N o M iscellaneous: C affeine: no. Children: yes, 5. Marital status: single, fiance. 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 D rug/Alcohol: A SNEHA-C (Standard) D id you have a drink containing alcohol in the past year? N o P oints 0 I nterpretation N egative * Medications: T akingExtra Depth Diabetic Shoes with 3 Pair Custom heat-molded multi-density innersoles for 1 year Dx: eliquis 5 mg Tablet glipiZIDE Labetalol HCl Levothyroxine Sodium Lisinopril 5 MG Tablet 1 tablet Once a day metFORMIN HCl , Notes to Pharmacist: w/ glipizideSimvastatin Ciclopirox 0.77 % Gel 1 application thin film topically to nails Externally Once a day Medication List reviewed and reconciled with the patientTaking Extra Depth Diabetic Shoes with 3 Pair Custom heat-molded multi-density innersoles for 1 year Dx: Taking eliquis 5 mg Tablet Taking glipiZIDE Taking Labetalol HCl Taking Levothyroxine Sodium Taking Lisinopril 5 MG Tablet 1 tablet Once a day Taking metFORMIN HCl , Notes to Pharmacist: w/ glipizideTaking Simvastatin Taking Ciclopirox 0.77 % Gel 1 application thin film topically to nails Externally Once a day Medication List reviewed and reconciled with the patient * Allergies: N .K.D.A.yes[Allergies Verified] Objective: * Vitals: H t: 5ft 6in, Wt: 171, BMI: 27.6, Shoe size: 9, BS: 120, Ht-cm: 167.64 cm, Wt-k.57 kg. * P ast Orders: L ab:HEMOGLOBIN A1C (GLYCOHEMOGLOBIN) (Order Date - 03/04/2025) (Collection Date & Time - 03/04/2025 10:18 AM) Value Reference Range HEMOGLOBIN A1C % (HH) 6.0 * Examination: O phthalmology Referral: DIABETES EYE EXAM P rocedure Performed: Y es D ate of Exam Performed 0 04/16/2024 N ails: NAILS are: E longated, overgrown, dystrophic, lytic, greater than 3mm thick, discolored and friable with crumbly malodorous subungual debris, with pain on palpation , TA, T1, T2, T3, T4, T5, T6, T7, T8, T9. N eurological: SENSORY: Neurological exam demonstrates, reduced light touch sensation, reduced sharp/dull pin prick discrimination , B/L, 5.07 monofilament test performed at plantar aspects of 5 varied sites per foot shows sensation, reduced , B/L. V ascular: DP PULSES (B): 1 /4, B/L. PT PULSES (B): 0 /4, B/L. CAPILLARY FILL TIME: 3 secs. per digit. TROPHIC CONDITION-TEXTURE/ELASTICITY/TURGOR/HAIR GROWTH (B):?normal, B/L. TEMPERTURE GRADIENT (C): w arm to cool, proximal to distal, B/L. PIGMENTATION: n ormal, B/L. EDEMA (C): n o edema. TELANGECTASIA: a bsent. VARICOSITIES: a bsent. G eneral Examination: FOOT EXAM: L ower Extremity Neurological Exam performed:?Yes V isual exam of foot performed: Y es D ate 1 05/06/2024 Footwear Evaluation F ootwear Evaluation performed: Y es Assessment: * Assessment: 1. P ain in right toe(s) - M79.674 2 . O nychomycosis - B35.1 (Primary)? Specify :Acute problem, Complicated w/ Multiple Tx Options(4) 3 . P ain in left toe(s) - M79.675 Plan: * Treatment: * Procedure Codes: * Preventive Medicine: Counseling: D iscussion: - 14: Office or other outpatient visit for the evaluation and management of an established patient, which required a medically appropriate history and/or examination and MODERATE level of DECISION MAKING for: 1 OR MORE CHRONIC PROBLEM(S) THATS WORSENING, 2 STABLE CHRONIC PROBLEMS, A NEWLY DIAGNOSED PROBLEM WITH UNCERTAIN PROGNOSIS, AN ACUTE COMPLICATED INJURY WITH MULTIPLE TREATMENT OPTIONS, OR AN ACUTE PROBLEM WITH ACCOMPANYING SYSTEMIC SYMPTOMS, THAT POSE(S) A MODERATE RISK OF MORBIDITY. THIS CONDITION MAY ALSO INCLUDE RX DRUG MANAGEMENT, OR A DECISON FOR MINOR SURGERY. The visit on the day of the [...] have encouraged the patient to call the office. F ungal Nail Counseling: T he patient was counseled on the diagnosis, potential etiologies (including, but not limited to, environmental factors, genetic, immune deficiency), and the multiple treatment options for Onychomycosis. We discussed the risks and benefits of each option from performing no treatment, to ultraviolet light shoe treatment, to laser nail treatment, to applying topical antifungals, to taking oral antifungal medication, to surgical removal of the involved nail(s) with or without performing a matricectomy, or any combination thereof. We discussed the advantages and disadvantages of each of possible treatment and importance for adherence to all the recommended therapies for optimum success. This includes the necessity for weekly emery board self nail home debridements, and control the nail and skin environment as much as possible by only using a fresh, dry pair of shoes/socks each day, as well as keeping the skin as dry as possible through the use of sprays/powders if necessary. The patient was instructed to discard the emery board after use to prevent reinfection of the involved nail(s). We discussed the mycological and visual clinical effectiveness of topical vs oral antifungal treatments as well as each ones potential side effects and/or any patient-specific medication interactions. We discussed the reasons behind the important requirement of regular liver function testing with oral antifungal therapy for safety. Patient questions regarding use, dosage, successful outcomes, blood tests, and possible pharmaceutical interactions were reviewed and the patient verbalized that all answers were clearly understood. Screening/Special Tests: F all Risk Screening: N o falls in the past year F ALLS: Screening for Future Fall Risk Have you had any falls with injury in the past year? N o * Follow Up: 2 -3 Months * Images: * Sign off status: Completed true * Provider: Chinedu Hein DPM Date: 05/06/2024 Generated for Pipe gaxiola/Allan/José Luis on: 05/09/2024 09:58 AM EST History and Physical Notes * HPI (History of Present Illness) Category Sub-Category Detail Notes Category Not es Painful Nails Aggravated by: shoegear causing difficulty standing/walking Course: worse Duration: several months Location: Both feet Nature: aching, tender, disc olored, thick Treatments: none Examination Category Sub-Category Detail Notes Category Not es Neurological SENSORY: Neurological exa m demonstrates, reduced light touch sensation, reduced sharp/dull pin prick discrimination , B/L, 5.07 monofilament test performed at plantar aspects of 5 varied sites per foot shows sensation, reduced , B/L General Examination FOOT EXAM: Lower Extrem ity Neurological Exam performed:: Yes Visual exam of foot performed:: Yes Date: 03/05/2025 Footwear Evaluation Footwear Evaluation performe d:: Yes Ophthalmology Referral DIABETES EYE EXAM Procedure Perform ed:: Yes Date of Exam Performed: 04/16/2024 Vascular DP PULSES (B): 1/4, B/L PT [...] and friable with crumbly malodorous subungual debris, with pain on palpation , TA, T1, T2, T3, T4, T5, T6, T7, T8, T9
--- OUTSIDE RECORDS SUMMARY | 2025-03-08 09:58 | XMS_ITS | Patient Health Record ---
Author Organization [facility] Address [address] [address] Care Team Providers Care Optical Advisor Name Role Phone John Mercado Primary Care Provider Unavailab Piper Queen Unavailable [phone] Allergies No Known Allergies Results Component Value Reference Range Notes HEMOGLOBIN A1C (GLYCOHEMOGLO BIN) Reviewed date:11/02/2024 08:31:17 AM Interpretation: Performing Lab: Notes/Report: HEMOGLOBIN A1C % (HH) 6.7 HEMOGLOBIN A1C (GLYCOHEMOGLO BIN) Reviewed date:12/04/2024 10:08:53 AM Interpretation: Performing Lab: Notes/Report: HEMOGLOBIN A1C % (HH) 6.9 HEMOGLOBIN A1C (GLYCOHEMOGLO BIN) Reviewed date:03/05/2025 10:18:46 AM Interpretation: Performing Lab: Notes/Report: HEMOGLOBIN A1C % (HH) 6.0 Reason For Referral No Information Medications Medication SIG (Take, Route, Frequency, Duration) Notes Start Date End Date Status Extra Depth Diabetic Shoes with 3 Pair Custom heat-molded multi-density innersoles for 1 year Dx: A ctive eliquis 5 mg Active glipiZIDE Active Labetalol HCl Active Levothyroxine Sodium Active Lisinopril 5 MG 1 tablet Once a day Active metFORMIN HCl w/ glipizide Act maya Simvastatin Active Ciclopirox 0.77 % 1 application thin film topically to nails Externally Once a day; Duration: 30 days Active Social History Tobacco Use: Social History [...] ast year? No Points 0 Interpretation Negative Problems Problem Type SNOMED Code ICD Code Onset Dates Problem Status W/U Status Risk Notes Problem Bilateral atherosclerosis of arteries of lower limbs (disorder) (29659518875883673 ) Unspecified atherosclerosis of [place] arteries of extremities, bilateral legs (I70.203) Active confirmed Problem Polyneuropathy due to type 2 diabetes mellitus (358290349) Type 2 diabetes mellitus with diabetic polyneuropathy (E11.42) Active confirmed Vital Signs Heart Rate 80 /min 12/04/2024 Blood pressure diastolic 88 L mm Hg 12/04/2024 Height 5ft 6in in 03/05/2025 Blood pressure systolic 156 mm Hg 12/04/2024 Weight 171 lbs 03/05/2025 BMI 27.6 kg/m2 03/05/2025 Procedures Procedure Date Ordered Date Performed Result Body Sit e 31562-CSAROEY NAIL, 6 OR MORE 11/02/2024 N/A Encounters Encounter Location Date Provider Diagnosis [address] [address] 11/02/2024 Piper Hein Type 2 diabetes mellitus with diabetic polyneuropathy E11.42 and Tinea unguium B35.[address] [address] 12/04/2024 Piper Hein Pain in right toe(s) M79.674 ; Onychomycosis B35.1 and Pain in left toe(s) M79.[address] [address] 03/05/2025 Piper Hein Pain in right toe(s) M79.674 ; Onychomycosis B35.1 and Pain in left toe(s) M79.675 [facility] [address] [place] [address] 03/06/2025 Piper Hein [address] [address] 06/25/2024 Piper Hein [facility] [place] [address] [place] [address] 10/30/2024 Piper Hein [facility] [place] [address] [place] [address] 12/06/2024 Piper Hein Assessments Encounter Date Diagnosis (ICD Code) Assessment Notes Treatment Notes Treatment Clinical Notes Section Notes 11/02/2024 Type 2 diabetes mellitus with diabetic polyneuropathy (ICD-10 - E11.42) 11/02/2024 Tinea unguium (ICD-10 - B35.1) 12/04/2024 Pain in right toe(s) (ICD-10 - M79.674) 12/04/2024 Onychomycosis (ICD-10 - B35.1) 03/05/2025 Pain in right toe(s) (ICD-10 - M79.674) 03/05/2025 Onychomycosis (ICD-10 - B35.1) 03/05/2025 Pain in left toe(s) (ICD-10 - M79.675) 12/04/2024 Pain in left toe(s) (ICD-10 - M79.675) Plan Of Treatment Pending Test Test Name Order Date *Liver Function Test (LFT) 03/05/2025 [id number] NAIL, 6 OR MORE 11/02/2024 [id number] NAIL, 6 OR MORE 02/28/2024 [id number] SKIN LESIONS, OVER 4 02/28/20 24 53950-TPTZ SKIN LESIONS, OVER 4 08/23/19 24 [id number]-Fqwq. Subungual Hematoma 4 [id number] DYSTROPHIC NAILS ANY # Next Appt Details Provider Name:Piper Vaca dwayne, 05/10/2025 10:00:00 AM, [address] [address], [place], [address], Insurance Providers Payer Name Payer Address Payer Phone Subscriber Number Group Number Insured Name Patient Relationship to Insured Coverage Start Date Coverage End Date [employer] [address] [place] [address] [phone] [id number] Quiñonez, Sniter Self - patient is the insured Medical (General) History Medical History History ICD Code Diabetes mellitus High blood pressure thyroid Measles Mumps Chicken pox Back,Hip,and Knee pain Cataracts Numbness
--- OUTSIDE RECORDS SUMMARY | 2025-03-08 09:59 | XMS_ITS | Clinical Summary ---
Author Organization [address] [place] [address] [place] [phone] Phone Care Team Providers Care Hr Advisor Name Role Phone Geoff Reyes MD Primary Care Provider [phone]- [phone] Allergies No known active allergies Medications apixaban [...] DX:Diabetes mellitus with op hthalmic manifestations, controlled ([facility]) Family History Medical History Relation Name [...] patient's age to complete this topic [place] [address] [address] MEDICARE ADVANTAGE on file Care Teams Hr Advisor Relationship Specialty Start Date End Date Geoff Reyes MD [facility] [address] [place] [address] [address] [place] [id number] PCP - General 04/26/22
--- OUTSIDE RECORDS SUMMARY | 2025-03-08 09:59 | XMS_ITS | Continuity of Care Document ---
Author Organization [facility] [address] [place] [address] Phone [phone] Care Team Providers Care Clinical Psychologist Private Practice Name Role Phone John Mercado Care Team Information Receiv er [phone] Problems Active Problems Provider Date Type 2 diabetes mellitus Raymundo Diaz M.D. Onset: 11/25/2021 Hypothyroidism Raymundo Daiz M.D. Onset: 0 11/25/2021 Graves' disease Raymundo [...] SIG Qnty Indications Order ing Provider Date Bzoprdrq96po/0.5ML Solution Auto-Inject inject 10 mg weekly 6ml E11.9 Raymundo Diaz M.D. 07/23/2024 Freestyle Edna 3/Sensor/Glucose Monitoring [id number] [place] for 14 days to check blood sugars 6units E11.9 Raymundo Diaz M.D. 12/21/2023 Dexcom G7 Fiberglass Pipe Covering Supervisor Device Use as Directed 1units E11.9 Raymundo Diaz M.D. 05/27/2023 Dexcom G7 ReceiverDevice use for sugar reading dx e11.9 1units E11Yassine9 Raymundo Diaz M.D. 05/27/2023 Levothyroxine Snmhvx606hre Tablets Take 1 Tablet 6 Days Per Week 78tabs Raymundo Diaz M.D. 04/29/2023 Wmvnabqdk68os Tablets 1 by mouth every day 90tabs Raymundo Diaz M.D. 12/24/2021 Yytskyzvxpyurjwdjwo79x g Tablets 1 by mouth every day 90tabs Raymundo Diaz M.D. 11/25/2021 Tcnacecsyc69ww Tablets Take 1 Tablet By Mouth Every Day 90tabs Raymundo Diaz M.D. 10/05/2021 Mxjvmzeghrn36sj Tablets Take 1 Tablet By Mouth Every Day 90tabs Raymundo Diaz M.D. Glipizide/Metformin Hydrochloride5-500mg Tablets Take 2 Tablets Twice Daily 360tabs Raymundo Diaz M.D. Uziuyop8uy Tablets Take 1 Tablet By Mouth Twice Daily Travon Eugene M.D. Labetalol BCK075ah Tablets Take 1 Tablet By Mouth Twice [...] 148 TSH With Reflex To FT4 04/26/2023 [facility] TSH With Reflex To FT4 <pending> Free T4 04/25/2023 [facility] Free T4 1.04 ng/dL (0.70-1 .80) Glucose Fingerstick 04/25/2023 Inhouse Glucose Fingerstick 114 Hemoglobin A1c 04/25/2023 Inhouse Hemoglobin A1c 7.7% Urinary Microalbumin 04/25/2023 [facility] Micro-Albumin <12.0 mg/L (<20) 1 Malb/Creat Ratio Unable to calcul <SEE NOTE> MG/GM (0-20) 2 Urine Creat For Micro Albumin 85.1 mg/dL TSH With Reflex To FT4 04/25/2023 [facility] TSH With Reflex To FT4 6.24 uIU/mL High (0.4-4. 2) Complete Abc With Diff 04/25/2023 [facility] WBC 5.8 K/MM3 (4.0-11 [...] 0) Lymph # 2.1 K/MM3 (0.8-3. 1) [place]# 0.6 K/MM3 (0.4-1. 3) Eo # 0.1 K/MM3 (0.0-0. 4) Baso # 0.0 K/MM3 (0.0-0. 1) Abs. Imm Gran 0.0 K/MM3 Neut 52.8 % (44-76) Lymph 36.0 % (15-43) Monocyte 9.9 % (4.5-10 .5) Eo 0.9 % (0-6) Baso 0.2 % (0-2) Imm Gran 0.2 % Urinalysis Complete 04/25/2023 [facility] Appear/Color LIGHT YELLOW 3 SP. Maybeury 1.040 High (1.002- 1.030) Urine PH 6.0 (5.0-8. 0) Urine Albumin NEGATIVE (Neg) Urine Glucose 4+ Abnormal (Neg) Urine Ketones 1+ Abnormal (Neg) Urine Bilirubin NEGATIVE (Neg) Urine Hemoglobin NEGATIVE (Neg) Urine Nitrite NEGATIVE (Neg) Urine Leukocyte NEGATIVE (Neg) Urobilinogen NORMAL mg/dL (Norm) Urine WBCs <1 /HPF (0-5) Urine RBCs 1 /HPF (0-3) Lipid Panel 04/25/2023 [facility] Cholesterol, Total 162 mg/dL (<200) Triglyceride 100 mg/dL (<150) HDL Chol 47 mg/dL (>39) LDL Cholesterol, Calculated 95 mg/dL (0-130) Non HDL Cholesterol (Calc) 115 mg/dL (<160) Comprehensive Metabolic Panl 04/25/2023 [facility] Glucose 109 mg/dL High [...] 125 TSH With Reflex To FT4 04/22/2022 [facility] TSH With Reflex To [...]
[2025-03-08 10:33] LABS: Hematocrit 39.8 % (42.0-52.0); Hemoglobin 12.9 g/dl (14.0-18.0); Mean Corpuscular HGB Conc 32.4 g/dl (31.0-36.0); Mean Corpuscular Hemoglobin 30.1 pg (27.0-33.0); Mean Corpuscular Volume 92.8 fL (80.0-98.0); NRBC Abs Auto 0.000 X10*3/uL (0.0-0.012); NRBC Pct Auto 0.0 /100WBC (0.0-0.2); Platelet Count 134 X10*3/uL (160-400); Red Blood Count 4.29 X10*6/uL (4.60-5.80); White Blood Count 5.4 X10*3/uL (4.8-10.8)
[2025-03-08 11:08] LABS: Alanine Aminotransferase 15 U/L (0-40); Albumin Level 4.5 g/dL (3.5-5.0); Alkaline Phosphatase 79 U/L (39-117); Anion Gap 12 (12-20); Aspartate Amino Transferase 16 U/L (5-37); Blood Urea Nitrogen 22 mg/dL (9-16); Calcium 9.2 mg/dL (8.4-10.2); Carbon Dioxide 27 mmol/L (22-29); Chloride 108 mmol/L (96-108); Cholesterol 121 mg/dL (<200); Estimated Glomerular Filt Rate > 60; HDL Cholesterol 38 mg/dL (>40); Potassium 4.3 mmol/L (3.3-5.1); Sodium 143 mmol/L (135-145); Total Protein 7.0 g/dL (6.5-8.0); Triglycerides 47 mg/dL (<150)
[2025-03-08 11:58] LABS: Free T4 (Free Thyroxine) 0.99 ng/dL (0.71-1.85)
== END 2025-03-08 09:55 | disposition home or self-care (01) ==
LOC: HO.LAB 09:54
PROVIDERS: PCP Physician Assistant; Visit Provider Physician Assistant
DX: Z12.5 Encounter for screening for malignant neoplasm of prostate (principal); E78.2 Mixed hyperlipidemia; E03.9 Hypothyroidism, unspecified
CPT/HCPCS: 36415; 80053; 80061; 84153; 84439; 84443; 85027